=== PATIENT | male | born 1960 | race Caucasian/White ===

== ENCOUNTER → 2019-07-28 | Outpatient (CLI) | payer SELFPAY ==
--- NOTE | 2019-07-28 10:24 | XR ---
EXAM TYPE: LUMBAR SPINE X RAY SERIES COMPARISON: NONE HISTORY: Back pain TECHNIQUE: 4 views are submitted. FINDINGS: Alignment is anatomic. The pedicles are intact. The transverse processes are intact. There is post surgical change. Grade 1 anterolisthesis L3 on L4 and L4-L5 with severe multilevel degenerative disc disease. Vascular calcifications noted. Curvature the spine noted. IMPRESSION: 1. Postsurgical changes with multilevel degenerative disc disease and multilevel anterolisthesis.
== END | disposition home or self-care (01) ==
LOC: RADXRMAIN 09:41
PROVIDERS: ATTEND Family Medicine
DX: M43.16 Spondylolisthesis, lumbar region (principal); M51.36 Other intervertebral disc degeneration, lumbar region; Z98.890 Other specified postprocedural states
CPT/HCPCS: 72100

== ENCOUNTER → 2019-11-18 | Outpatient (CLI) | payer SELFPAY ==
[2019-11-18 10:31] LABS: Basophils # (A) 0.1 k/uL (0-0.2); Basophils % (A) 2 %; Eosinophils # (A) 0.5 k/uL (0-0.7); Eosinophils % (A) 6 %; HCT 46.6 % (39.0-53.0); HGB 15.4 gm/dL (13.0-17.5); Lymphocytes # (A) 1.7 k/uL (1.0-4.8); Lymphocytes % (A) 21 %; MCH 32.9 pg (25.0-35.0); MCHC 33.1 g/dL (31.0-37.0); MCV 99.3 fL (80.0-100.0); Mean Platelet Volume 6.9; Monocytes # (A) 0.7 k/uL (0-1.0); Monocytes % (A) 9 %; Neutrophils # (A) 4.9 k/uL (1.3-7.7); Neutrophils % (A) 60 %; Platelet Count 347 k/uL (150-450); RBC 4.69 m/uL (4.30-5.90); RDW 12.5 % (11.5-15.5); WBC 8.1 k/uL (3.8-10.6)
[2019-11-18 10:44] LABS: Potassium 4.2 mmol/L (3.5-5.1)
[2019-11-18 11:02] LABS: INR 0.9 (<1.2); Prothrombin Time 9.5 sec (9.0-12.0)
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
== END | disposition home or self-care (01) ==
LOC: LABPAT 09:17
PROVIDERS: ATTEND Orthopaedic Surgery
DX: J98.4 Other disorders of lung (principal); I77.89 Other specified disorders of arteries and arterioles; M16.12 Unilateral primary osteoarthritis, left hip; Z79.01 Long term (current) use of anticoagulants
CPT/HCPCS: 36415; 71046; 80051; 85025; 85610; 87070; 93005

== ENCOUNTER 2019-11-29 06:56 | Inpatient (IN) | payer SELFPAY ==
[2019-11-21 15:11] VITALS: BMI 27.3
--- NOTE | 2019-11-28 11:03 | HP ---
HISTORY AND PHYSICAL CHIEF COMPLAINT: Left hip pain. HISTORY OF PRESENT ILLNESS: The patient is a 59-year-old, unemployed male who presents with progressive left hip pain over the past several months. He notes this progressed to where it is extreme and he has a difficult time with any weightbearing. He has been using a cane. He has tried medications with only partial temporary relief. He does have a longstanding history of lumbar spine issues and a previous surgery. PAST MEDICAL HISTORY: Significant for seizures, arthritis, hypertension. PAST SURGICAL HISTORY: Significant for right knee arthroscopy, right total hip arthroplasty and lumbar fusion. CURRENT MEDICATIONS: Aspirin, metoprolol, and [place]. ALLERGIES: He denies drug allergies. FAMILY HISTORY: Significant for cancer. SOCIAL HISTORY: Significant for 1 pack per day tobacco use in addition to heavy alcohol use. REVIEW OF SYSTEMS: Sixteen point review of systems otherwise reviewed and is noncontributory. PHYSICAL EXAMINATION: On examination, the patient is approximately 6 feet 4 inches, 200 pounds of endomorphic habitus. HEENT exam is nonfocal. Neck is supple. Passive motion left hip, flexion 60 degrees, external rotation with the hip flexed 40 degrees. Internal rotation 0 with pain. He has an antalgic gait pattern. He has limited lumbar spine motion. His distal neurovascular appears intact in the left lower extremity. Previous x-rays of left hip obtained in the office show severe osteoarthrosis with bone- on-bone changes. IMPRESSION: 1. Left hip severe osteoarthrosis. 2. History of lumbar fusion with radiculopathy. RECOMMENDATIONS: I talked to the patient at length regarding his condition and treatment options. At this point, he is quite symptomatic and it appears the majority of his symptoms relate to his osteoarthrosis of the left hip. After thorough discussion, he opts to proceed with surgery. We will plan to proceed with left total hip arthroplasty. We will institute DVT prophylaxis postoperatively. Risks and benefits were discussed at length in layman's terms. MMODL / IJN: [id number] /
[~2019-11-29 06:56] MED LIST: ACETAMINOPHEN TAB 500 MG TAB PO ONE; MELOXICAM 7.5 MG TAB PO ONE; TRANEXAMIC ACID 1,000 MG in SODIUM CHLORIDE 0.9% 100 ML IVPB ONE
[2019-11-29] MEDS ORDERED: ONDANSETRON 4 MG/2 ML VIAL IVP ONE (07:08)
[2019-11-29] MEDS ORDERED: MIDAZOLAM 2 MG/2 ML VIAL IV PRN (07:08)
[2019-11-29] MEDS ORDERED: HYDROmorphone 0.5 MG/0.5 ML SYRINGE IVP PRN ×2 (07:08→09:45)
[2019-11-29] MEDS ORDERED: DEXAMETHASONE SOD PHOSPHATE 10 MG/ML 1 ML VIAL IV ONE (07:08)
[2019-11-29] MEDS ORDERED: SCOPOLAMINE 1.5MG/72HR PATCH TRANSDERM ONE (07:08)
[2019-11-29] MEDS ORDERED: LIDOCAINE 1% 20 ML VIAL (10MG/ML) FOR IV START INTRADERMA ONE (07:35)
[2019-11-29] MEDS: LACTATED RINGERS 1,000 ML IV SCH (07:35)
[2019-11-29] MEDS ORDERED: fentaNYL (PF) 50 MCG/ML 2 ML AMP ONE (07:51)
[2019-11-29] MEDS ORDERED: diphenhydrAMINE 50 MG/ML 1 ML VIAL ONE (07:51)
[2019-11-29] MEDS ORDERED: MIDAZOLAM 2 MG/2 ML VIAL ONE (07:51)
[2019-11-29] MEDS ORDERED: SODIUM CHLORIDE 0.9% 100 ML BAG ONE (07:51)
[2019-11-29] MEDS ORDERED: PROPOFOL 10 MG/ML 20 ML VIAL IV ONE (07:51)
[2019-11-29] MEDS ORDERED: ePHEDrine SULFATE/0.9% NACL/PF 50 MG/5 ML SYRINGE IV ONE (07:51)
[2019-11-29] MEDS ORDERED: TRANEXAMIC ACID 1,000 MG/10 ML VIAL ONE (07:51)
[2019-11-29] MEDS ORDERED: WATER FOR INJECTION, STERILE 10 ML VIAL IV ONE (07:51)
[2019-11-29] MEDS ORDERED: LACTATED RINGERS 1,000 ML IV ONE (08:42)
[2019-11-29] MEDS ORDERED: MAGNESIUM HYDROXIDE 2,400 MG/10 ML CUP PO PRN (09:45)
[2019-11-29] MEDS ORDERED: HYDROmorphone 1 MG/ML 1 ML SYRINGE IVP PRN (09:45)
[2019-11-29] MEDS ORDERED: traMADol 50 MG TAB PO PRN (09:45)
[2019-11-29] MEDS ORDERED: NALOXONE 0.4 MG/ML 1 ML VIAL IV PRN (09:45)
[2019-11-29] MEDS ORDERED: HYDROcodone/APAP 7.5-325MG 1 EACH TAB PO PRN (09:45)
[2019-11-29] MEDS ORDERED: ACETAMINOPHEN TAB 325 MG TAB PO PRN (09:45)
--- NOTE | 2019-11-29 10:04 | P.OP ---
Date of Procedure: 11/29/19 Preoperative Diagnosis: Left hip severe osteoarthrosis Postoperative Diagnosis: Same Procedure(s) Performed: Left total hip arthroplastylateral approach Implants: Depuy Corail size 16 high offset press-fit femoral stem with collar, 36 mm +8 cobalt chrome femoral head, 60 mm Lov[place] acetabular shell with neutral polyethylene liner. Anesthesia: spinal Surgeon: Isaiah Sheridan Nuclear Instructor #1: Santy Granados Estimated Blood Loss (ml): 150 Pathology: other (Femoral head) Condition: stable Disposition: PACU Indications for Procedure: The patient's a 59-year-old male who presents with progressive left hip pain secondary to osteoarthrosis despite conservative measures. A discussion of the risks and benefits of operative intervention versus continued conservative measures was made with the patient. He opted to proceed with surgery. Operative risks to include infection, neurovascular injury, development of blood clots, possible fracture, possible leg length discrepancy, possible instability and need for subsequent procedures was discussed. Informed consent was obtained. Operative Findings: As below Description of Procedure: The patient was brought to the operating room, and after induction of spinal anesthesia was placed in a lateral decubitus position. The bony prominences were appropriately padded. The pelvis was stable perpendicular to the floor with a pegboard. The left lower extremity was prepped and draped in normal fashion. A 12 cm incision was then made centered over the greater trochanter extending superiorly to level the ASIS and distally in line with the femoral shaft. The skin and subcutaneous tissues were divided sharply. Electrocautery was used for hemostasis. The fascia chin and gluteus modesto fascia was split in line with the skin incision. The muscle fibers were bluntly dissected proximally. A self-retaining retractor was placed. The anterior and posterior margins of the gluteus medius muscles identified and the anterior two thirds was detached from the greater trochanter with electrocautery. The gluteus minimus tendon was identified and detached in a similar fashion. A wide capsulotomy was performed. The femoral neck fracture was identified in the lower neck cut was made approximately 1 1/2 cm above the level of the lesser trochanter with a sagittal saw at a 45 the shaft. The head was then extracted with a corkscrew. Attention was then paid towards preparing the acetabular. Anterior and posterior retractors were placed. The remaining capsular labral tissues debrided sharply clearly defining the acetabular margins. Began reaming with a 53 mm reamer taking care to initially medialize, then reaming at 45 of abduction and 20 of anteversion. Sequential reaming is performed up to 59 mm. This was down to bleeding bony surface. A trial 60 mm acetabular shell was inserted at 45 of abduction and 20 of anteversion. This was fully seated. There was good rim fit and stability. I did place a 6.5 x 25 mm cancellous screw posteriorly with good purchase. A neutral polyethylene liner was then impacted. Care taken to avoid any soft tissue interposition. Attention was then paid towards preparing the proximal femur. A box chisel was used to open the metaphyseal region. A canal finder was used to find the femoral canal. Sequential broaching was performed up to a size 16. This is placed in 15 of anteversion with the leg perpendicular floor judging off the trans-epicondylar axis. There is good rotational stability. A calcar mill was used to fashion the medial calcar. A trial high offset neck along with a a 36 mm + 8 trial head was placed. The hip was gently reduced. It was taken through range of motion. I felt to be stable in flexion and extension with internal and external rotation. I felt there was adequate voodoo of soft tissue tension. The hip was gently dislocated. The trial components removed. Pulsatile lavage was utilized. The final size 16 high offset collared femoral stem was inserted again with the leg perpendicular to the floor in 15 of anteversion. Again there was good rotational stability. A 36 mm + 8 cobalt chrome femoral head was gently impacted. The hip was gently reduced. Again it was taken through motion and felt to be stable in flexion and extension with internal and external rotation. Pulsatile lavage was again utilized. With the leg in abduction the gluteus minimus and medius tendons reattached to the greater trochanter with #2 Ethibond suture. There was minimal drainage therefore a deep drain was not placed. The fascia chin and gluteus modesto fascia was closed with #2 Ethibond suture. The subcutaneous tissues were reapproximated interrupted 2-0 Vicryl sutures. The skin was reapproximated with 3-0 subcuticular strata fix suture. Skin tape and adhesive was applied. A sterile dressing was applied. The patient was awoken from sedation and transferred to recovery room in good condition. Blood loss was estimated 150 mL. There was minimal drainage therefore a deep drain was not placed. The second dose of IV TXA was given. No complications were incurred. Sponge and needle counts were correct in the case. Vladimir CANTU assisted during the major composes case to include exposure, implantation, and closure.
--- NOTE | 2019-11-29 10:29 | XR ---
Left hip HISTORY: Status post left hip arthroplasty Single frontal view of the left hip Patient is status post left hip arthroplasty. There is lucency in the soft tissues. There is anatomic alignment. Technique somewhat limited. IMPRESSION: Orthopedic follow-up.
[2019-11-29] MEDS: ONDANSETRON 4 MG/2 ML VIAL IVP PRN (11:42)
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
[2019-11-29] MEDS: HYDROcodone/APAP 7.5-325MG 1 EACH TAB PO PRN ×2 (15:52→23:10)
[2019-11-29] MEDS ORDERED: SENNOSIDES-DOCUSATE SODIUM 1 EACH TAB PO SCH (21:00)
[2019-11-30 01:40] VITALS: TEMP 98.1
[2019-11-30] MEDS: HYDROcodone/APAP 7.5-325MG 1 EACH TAB PO PRN ×2 (04:41→13:05)
[2019-11-30] MEDS: LACTATED RINGERS 1,000 ML IV SCH (04:44)
[2019-11-30] MEDS: ONDANSETRON 4 MG/2 ML VIAL IVP PRN (05:08)
[2019-11-30 07:36] LABS: Basophils # (A) 0.1 k/uL (0-0.2); Basophils % (A) 1 %; Eosinophils % (A) 0 %; HGB 13.3 gm/dL (13.0-17.5); Lymphocytes # (A) 1.7 k/uL (1.0-4.8); Lymphocytes % (A) 12 %; MCH 31.5 pg (25.0-35.0); MCHC 32.5 g/dL (31.0-37.0); MCV 96.9 fL (80.0-100.0); Mean Platelet Volume 6.9; Monocytes # (A) 1.4 k/uL (0-1.0); Monocytes % (A) 10 %; Neutrophils # (A) 11.3 k/uL (1.3-7.7); Neutrophils % (A) 77 %; Platelet Count 337 k/uL (150-450); RBC 4.23 m/uL (4.30-5.90); RDW 12.3 % (11.5-15.5); WBC 14.7 k/uL (3.8-10.6)
[2019-11-30 08:11] VITALS: BP 177/84; PULSE 109; RESP 18
[2019-11-30] MEDS ORDERED: FAMOTIDINE 20 MG TAB PO SCH (09:00)
[2019-11-30] MEDS ORDERED: RIVAROXABAN 10 MG TAB PO SCH (09:00)
--- NOTE | 2019-11-30 10:31 | P.PN ---
Subjective Progress Note Date: 11/30/19 Principal diagnosis: status post left total hip arthroplasty Patient evaluated bedside, he is resting comfortably. He has ambulated well. He denies any chest pain or shortness of breath. Objective - Vital Signs Vital signs: Vital Signs Temp 98.1 F 11/30/19 07:00 Pulse 109 H 11/30/19 07:00 Resp 18 11/30/19 07:00 BP 177/84 11/30/19 07:00 Pulse Ox 95 11/30/19 07:00 Intake & Output 11/29/19 11/30/19 11/30/19 18:59 06:59 18:59 Intake Total 2196 820 Output Total 200 1800 1800 Balance 1995 Weight 105.9 kg Intake: IV 1600 Intake, IV Titration 700 Amount Lactated Ringers 1,000 ml 600 @ 50 mls/hr IV .Q20H HEMAL Rx#:[id number] ceFAZolin 2 gm In Sodium 100 Chloride 0.9% 50 ml @ 100 mls/hr IVPB Q8HR EHMAL Rx# :[id number] Oral 596 120 Output: Urine 50 1800 1800 Estimated Blood Loss 150 Other: Voiding Method Bedside Commode Bedside Commode # Voids 2 2 - Exam Left lower extremity: Incision is clean, dry, and intact. The exofin fusion tape is in good condition. There is minimal soft tissue swelling and ecchymosis surrounding the medial and lateral aspects of the incision. Calf is soft, no tenderness with palpation. Plantar flexion, dorsiflexion, EHL, FHL are intact. Sensory exam to light touch throughout the extremity is intact, dorsal pedis pulses 2+. - Labs CBC & Chem 7: 11/30/19 06:54 Labs: Abnormal Lab Results - Last 24 Hours (Table) 11/30/19 Range/Units 06:54 WBC 14.7 H (3.8-10.6) k/uL RBC 4.23 L (4.30-5.90) m/uL Neutrophils # 11.3 H (1.3-7.7) k/uL Monocytes # 1.4 H (0-1.0) k/uL Assessment and Plan Plan: Assessment: Postoperative day #1 status post left total hip arthroplasty Plan: Pain control, plan for discharge on oral medication GI and DVT prophylaxis, Eliquis 2.5mg bid for 1 month Wound care instructions discussed Home therapy and nursing after discharge Posterior hip precautions Medical recommendations Discharge home today Time with Patient: Less than 30
--- NOTE | 2019-11-30 10:32 | P.DS ---
Providers Date of admission: 11/29/19 06:56 Expected date of discharge: 11/30/19 Attending physician: Isaiah Sheridan Consults: 11/29/19 09:49 Consult Physician Routine Consulting Provider: Valeria Olivera Reason/Comments: Medical Management Do you want consulting provider notified?: Yes Primary care physician: Valeria Olivera Hospital Course: Date of admission: 11/29/2019 Date of discharge: 11/30/2019 Admission diagnosis: Status post left total hip arthroplasty Discharge diagnosis: Same Attending physician: Dr. Sheridan Surgical procedures: Left total hip arthroplasty Brief history: Patient is a 59-year-old male with a history of progressive primary left hip osteoarthritis. At this point patient has failed conservative treatment measures and has opted to proceed with a elective left total hip arthroplasty. Hospital course: Details of patient's surgery can be found in operative report. Patient tolerated the procedure well and was subsequently transported to orthopedic floor. Patient's orthopeidc and medical care was provided daily. Patient had daily laboratory tests performed for evaluation of overall blood counts. Patient had daily physical therapy to include strengthening range of motion as well as education with walker ambulation. Patient had daily CPM usage as part of their physical therapy program. Patient was treated with Xarelto for their postoperative DVT prophylaxis during their inpatient stay. Patient was noted to have a relatively uneventful postoperative course. Patient reported satisfactory pain control with oral pain medications by postoperative day 0. Patient showed satisfactory progress with physical therapy. Patient moved steadily through the program and had no difficulty meeting the goals by postoperative day 1. Given patient's otherwise satisfactory course and having met physical therapy goals, plan is to discharge patient home on postoperative day 1. Discharge condition/disposition: Patient will be discharged home in stable condition. Discharge medications: Instructions are given on resumption of patient's normal daily medications per primary care recommendation, in addition patient will be prescribed [place] 7.5 mg/325 mg, Eliquis 2.5mg. Discharge instructions: 1. Wound care and infection precautions, keep incision dry and covered while showering, no lotions, creams, moisturizers. No soaking, tubs, pools, hottubs. Do not scrub over the incision. 2. Weight-bear as tolerated with walker / cane until follow-up. 3. Ice and elevate when necessary. Do not exceed 20 minutes per hour with ice pack. 4. Utilize compression sleeve until seen at first follow up appointment. 5. Visiting nursing care. 6. Home physical therapy. 7. Pain meds and anticoagulants per prescription. 8. Pain medication has potential to cause constipation. Increase oral fluid and fiber intake. Contact primary care provider if you have not had a bowel movement within 48 hours after discharge 9. No anti-inflammatory medication until discussed at first post operative visit, this including Motrin, Aleve, Mobic, Diclofenac. 10. Follow up in office at 2 weeks postop with Vladimir Granados PA-C 11. Follow up with your primary care doctor 7-10 days after discharge. 12. Contact [facility] with any questions, . Procedures: Left total hip arthroplasty Patient Condition at Discharge: Good Plan - Discharge Summary Discharge Rx Participant: No New Discharge Prescriptions: New Apixaban [Eliquis] 2.5 mg PO BID #60 tab HYDROcodone/APAP 7.5-325MG [[place] 7.5] 1 - 2 each PO Q6HR PRN #40 tab PRN Reason: Pain No Action Multivitamins, Thera [Multivitamin] 1 tab PO DAILY Baclofen [Lioresal] 10 mg PO TID PRN PRN Reason: Muscle Spasm Aspirin 81 mg PO DAILY Metoprolol Tartrate [Lopressor] 50 mg PO BID HYDROcodone/APAP 7.5-325MG [[place] 7.5-325] 1 tab PO Q6HR PRN PRN Reason: Pain Discharge Medication List Multivitamins, Thera [Multivitamin] 1 tab PO DAILY 07/09/16 [History] Aspirin 81 mg PO DAILY 11/21/19 [History] Baclofen [Lioresal] 10 mg PO TID PRN 11/21/19 [History] HYDROcodone/APAP 7.5-325MG [[place] 7.5-325] 1 tab PO Q6HR PRN 11/21/19 [History] Metoprolol Tartrate [Lopressor] 50 mg PO BID 11/21/19 [History] Apixaban [Eliquis] 2.5 mg PO BID #60 tab 11/30/19 [Rx] HYDROcodone/APAP 7.5-325MG [[place] 7.5] 1 - 2 each PO Q6HR PRN #40 tab 11/30/19 [Rx] Follow up Appointment(s)/Referral(s): [facility], [NON-STAFF] - Santy Granados, TASHIA [PHYSICIAN DRUG REGULATORY AFFAIRS SPECIALIST] - 12/14/19 3:30 pm Activity/Diet/Wound Care/Special Instructions: Orthopedic Discharge Instructions: 1. Wound care and infection precautions, keep incision dry and covered while showering, no lotions, creams, moisturizers. No soaking, pools, hot tubs. Do not scrub over incision. 2. Weight-bear as tolerated with walker / cane until follow-up. 3. Ice and elevate when necessary. Do not exceed 20 minutes per hour with ice pack. 4. Utilize compression sleeve until seen at first follow up appointment. 5. Pain meds and anticoagulants per prescription. 6. Pain medication has potential to cause constipation. Increase oral fluid and fiber intake. Contact primary care provider if you have not had a bowel movement within 48 hours after discharge. 7. No anti-inflammatory medication until discussed at first post operative visit, this including Motrin, Aleve, Mobic, Diclofenac. 8. Follow up in office at 2 weeks postop with Vladimir Granados PA-C 9. Follow up with your primary care doctor 7-10 days after discharge. 10. Contact [facility] with any questions, [phone]. 11. [facility] will deliver a walker to the bedside before discharge. Discharge Disposition: HOME WITH HOME HEALTH SERVICES
--- NOTE | 2019-11-30 14:50 | P.PN ---
Subjective Progress Note Date: 11/30/19 Principal diagnosis: 59-year-old pleasant gentleman was admitted for left hip arthroplasty lateral approach sepsis and underwent surgery patient is clinically doing well moving his bowels denied any fever chills nausea vomiting abdominal pain patient denied any chest pain patient is also although sinus bradycardic patient is on beta jd which was recently increased because his blood pressure is not well- controlled with because of pain. We'll hold off on beta jd because of sinus bradycardia will monitor him if needed will let us anyone low-dose of beta jd. Patient blood pressure is not high at this time either as his pain is well controlled at this time. 11/30/2019 Patient is sitting up in the chair currently working with physical therapy and transferring from the bed to the chair. No acute overnight issues. Patient takes metoprolol 50 mg twice daily and we will resume upon discharge his current heart rate has been in the low 100s. Blood pressure slightly elevated today. Currently patient denies any chest pain, shortness of breath, or palpitations. Patient is afebrile. Patient denies any nausea or vomiting and has been tolerating diet. Patient would like to go home today and is being discharged and will continue with home care for physical therapy. Objective - Vital Signs Vital signs: Vital Signs Temp 98.1 F 11/30/19 07:00 Pulse 109 H 11/30/19 07:00 Resp 18 11/30/19 07:00 BP 177/84 11/30/19 07:00 Pulse Ox 95 11/30/19 07:00 Intake & Output 11/29/19 11/30/19 11/30/19 18:59 06:59 18:59 Intake Total 2196 820 592 Output Total 200 1800 1800 Balance 1995 Weight 105.9 kg Intake: IV 1600 Intake, IV Titration 700 Amount Lactated Ringers 1,000 ml 600 @ 50 mls/hr IV .Q20H HEMAL Rx#:[id number] ceFAZolin 2 gm In Sodium 100 Chloride 0.9% 50 ml @ 100 mls/hr IVPB Q8HR HEMAL Rx# :[id number] Oral 596 120 592 Output: Urine 50 1800 1800 Estimated Blood Loss 150 Other: Voiding Method Bedside Commode Bedside Commode # Voids 2 2 - Exam GENERAL: The patient is alert and oriented x3, not in any acute distress. Well developed, well nourished. HEENT: Pupils are round and equally reacting to light. EOMI. No scleral icterus. No conjunctival pallor. Normocephalic, atraumatic. No pharyngeal erythema. No thyromegaly. CARDIOVASCULAR: S1 and S2 present. No murmurs, rubs, or gallops. PULMONARY: Chest is clear to auscultation, no wheezing or crackles. ABDOMEN: Soft, non-tender, non-distended, normoactive bowel sounds. No palpable organomegaly. MUSCULOSKELETAL: No joint swelling or deformity. EXTREMITIES: No cyanosis, clubbing, or pedal edema. NEUROLOGICAL: Gross neurological examination did not reveal any focal deficits. SKIN: No rashes. - Labs CBC & Chem 7: 11/30/19 06:54 Labs: Abnormal Lab Results - Last 24 Hours (Table) 11/30/19 Range/Units 06:54 WBC 14.7 H (3.8-10.6) k/uL RBC 4.23 L (4.30-5.90) m/uL Neutrophils # 11.3 H (1.3-7.7) k/uL Monocytes # 1.4 H (0-1.0) k/uL Assessment and Plan Assessment: -sinus bradycardia: Secondary to beta jd which was held status post surgery and will be resumed upon discharge -hypertension blood pressure is elevated at this time. beta blockers mentioned above are being resumed -hip arthroplasty: Pain management as per primary service patient is on anticoagulation with new anticoagulants as a DVT prophylaxis -seizure disorder patient is presently not on any antiseizure medications -Osteoarthritis plan: Recommend to continue current medications, management, and symptomatic treatment . Continue working with PT/OT. Plan is for patient be discharged today per primary service and will be going home with home care with continued PT/OT. Will resume beta jd upon discharge. Will continue to follow along closely during hospital course. Further recommendations to follow. Probable discharge this afternoon.
== END 2019-11-30 16:20 | disposition home health service (06) | DRG 470 ==
LOC: 2ORMAIN 06:56 → 4SSUR 09:41
PROVIDERS: ADMIT Orthopaedic Surgery; ATTEND Orthopaedic Surgery
PROC: 0SRB02A Replacement of Left Hip Joint with Metal on Polyethylene Synthetic Substitute, Uncemented, Open Approach (ICD-10-PCS; principal; 2019-11-29 08:00)
DX: M16.12 Unilateral primary osteoarthritis, left hip (principal); G40.909 Epilepsy, unspecified, not intractable, without status epilepticus; I10 Essential (primary) hypertension; T44.7X5A Adverse effect of beta-adrenoreceptor antagonists, initial encounter; R00.1 Bradycardia, unspecified; Z79.82 Long term (current) use of aspirin; Z79.899 Other long term (current) drug therapy; Z87.891 Personal history of nicotine dependence; Z96.641 Presence of right artificial hip joint; Z98.1 Arthrodesis status; Z96.652 Presence of left artificial knee joint; Z80.9 Family history of malignant neoplasm, unspecified
CPT/HCPCS: 73501; 85025; 86850; 86900; 86901; 88300

== ENCOUNTER 2020-01-15 10:12 | Emergency (ER) | payer OTHER ==
[2020-01-15 10:17] VITALS: TEMP 98
[2020-01-15] MEDS ORDERED: KETOROLAC 30 MG/ML 1 ML VIAL IM STA (10:31)
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
--- NOTE | 2020-01-15 10:45 | XR ---
EXAMINATION TYPE: XR shoulder complete RT , 3 VIEWS DATE OF EXAM ORDERED: 01/15/2020 HISTORY: shoulder pain. COMPARISON: None. FINDINGS: The coracoclavicular distance is enlarged. There appears to be a chronic right-sided AC se paration. No acute fracture or dislocation is seen. IMPRESSION: 1. NO ACUTE OSSEOUS LESION. 2. THERE IS WHAT I SUSPECT IS A CHRONIC RIGHT, GRADE 3, AC JOINT SEPARATION.
[2020-01-15 11:22] VITALS: BP 125/74; PULSE 89; RESP 16
== END 2020-01-15 11:20 | disposition home or self-care (01) ==
LOC: EC 10:12
DX: M24.411 Recurrent dislocation, right shoulder (principal); M19.90 Unspecified osteoarthritis, unspecified site; Z87.891 Personal history of nicotine dependence; Z79.82 Long term (current) use of aspirin; Z96.641 Presence of right artificial hip joint; Z96.652 Presence of left artificial knee joint
CPT/HCPCS: 73030; 99283; 96372; J1885

== ENCOUNTER → 2020-08-24 | Outpatient (CLI) | payer MEDICAID ==
[2020-08-24 09:56] LABS: Basophils # (A) 0.1 k/uL (0-0.2); Basophils % (A) 1 %; Eosinophils # (A) 0.3 k/uL (0-0.7); Eosinophils % (A) 4 %; HCT 43.1 % (39.0-53.0); HGB 14.7 gm/dL (13.0-17.5); Lymphocytes % (A) 12 %; MCH 34.9 pg (25.0-35.0); MCV 102.8 fL (80.0-100.0); Macrocytosis Slight; Mean Platelet Volume 6.5; Monocytes # (A) 0.9 k/uL (0-1.0); Monocytes % (A) 11 %; Neutrophils # (A) 5.6 k/uL (1.3-7.7); Neutrophils % (A) 69 %; Platelet Count 299 k/uL (150-450); RBC 4.19 m/uL (4.30-5.90); RDW 12.2 % (11.5-15.5); WBC 8.1 k/uL (3.8-10.6)
[2020-08-24 10:07] LABS: Potassium 3.8 mmol/L (3.5-5.1)
[2020-08-24 10:09] LABS: INR 0.9 (<1.2); Prothrombin Time 9.4 sec (9.0-12.0)
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
== END | disposition home or self-care (01) ==
LOC: LABPAT 09:18
PROVIDERS: ATTEND Orthopaedic Surgery
DX: Z01.818 Encounter for other preprocedural examination (principal); M17.11 Unilateral primary osteoarthritis, right knee; Z01.812 Encounter for preprocedural laboratory examination
CPT/HCPCS: 71046; 80051; 85025; 85610; 87070

== ENCOUNTER 2020-09-04 10:32 | Day surgery (SDC) | payer MEDICAID ==
[2020-08-31 13:27] VITALS: BMI 27.3
--- NOTE | 2020-09-03 10:47 | HP ---
HISTORY AND PHYSICAL CHIEF COMPLAINT: Right knee pain. HISTORY OF PRESENT ILLNESS: The patient is a 59-year-old male who presents with progressive right knee pain, worsening over the past couple of years. He is having pain with normal weightbearing activities. It limits his function. He has been limping. He has tried injections along with medications with only partial temporary relief. PAST MEDICAL HISTORY: Significant for arthritis, hypertension, and previous history of seizures. CURRENT MEDICATIONS: Aspirin, metoprolol, and [place]. He denies drug allergies family. PAST SURGICAL HISTORY: Significant for right knee arthroscopy, right total knee arthroplasty and lumbar fusion. FAMILY HISTORY: Significant for cancer. SOCIAL HISTORY: Significant for 1 pack per day tobacco use and social alcohol use. 16 POINT REVIEW OF SYSTEMS: Otherwise reviewed and is noncontributory. PHYSICAL EXAMINATION: On examination, the patient is approximately 6 foot 4, 200 pounds of mesomorphic habitus. HEENT: Exam is nonfocal. NECK: Supple. He has painless passive motion of right hip. Straight leg raise is negative, active motion right knee -14 to 105 degrees of flexion. He has a large effusion. He is tender about the medial joint line. Collaterals are stable, Marcellus is negative, Warren's elicits medial pain. He has genu varum alignment. He does have an antalgic gait pattern. Weightbearing, notch, lateral Merchant views of right knee obtained in the office show severe medial and patellofemoral compartment, osteoarthrosis with bgdl-[id number] changes. Subchondral sclerosis is noted. IMPRESSION: Right knee severe medial and patellofemoral compartment osteoarthrosis. RECOMMENDATIONS: I talked to the patient at length regarding his condition along with treatment options. At this point, he is quite limited because of pain, despite extensive conservative measures. After thorough discussion, he opts to proceed with surgery. We will plan to proceed with right total knee arthroplasty. We will institute DVT prophylaxis postoperatively. Risks and benefits were discussed at length in layman's terms. MMODL / IJN: [id number] /
[~2020-09-04 10:32] MED LIST changes: -ACETAMINOPHEN TAB 500 MG TAB PO ONE; +HYDROmorphone 0.5 MG/0.5 ML SYRINGE IVP PRN; +LIDOCAINE 1% (10MG/ML) FOR IV START INTRADERMA PRN; -MELOXICAM 7.5 MG TAB PO ONE; +MIDAZOLAM 2 MG/2 ML VIAL IV PRN; +ROPIVACAINE 246.25 MG, EPINEPHrine 0.5 MG, KETOROLAC 30 MG, cloNIDine HCL/PF 80 MCG, WA... MISCELLANE ONE
[2020-09-04] MEDS: LACTATED RINGERS 1,000 ML IV SCH ×2 (11:28→12:04)
[2020-09-04] MEDS: ACETAMINOPHEN TAB 500 MG TAB PO ONE ×2 (11:28→17:13)
[2020-09-04] MEDS: ONDANSETRON 4 MG/2 ML VIAL IVP ONE ×2 (11:28→17:13)
[2020-09-04] MEDS: MELOXICAM 7.5 MG TAB PO ONE ×2 (11:28→17:13)
[2020-09-04] MEDS: DEXAMETHASONE SOD PHOSPHATE 4 MG/ML 1 ML VIAL IV ONE ×2 (11:28→17:13)
[2020-09-04] MEDS ORDERED: fentaNYL (PF) 50 MCG/ML 2 ML AMP IVP ONE (11:45)
[2020-09-04] MEDS ORDERED: MIDAZOLAM 2 MG/2 ML VIAL IVP ONE (11:45)
[2020-09-04] MEDS ORDERED: MIDAZOLAM 2 MG/2 ML VIAL ONE (12:00)
[2020-09-04] MEDS ORDERED: fentaNYL (PF) 50 MCG/ML 2 ML AMP ONE (12:00)
[2020-09-04] MEDS ORDERED: GLYCOPYRROLATE 0.2 MG/ML 2 ML VIAL ONE (12:00)
[2020-09-04] MEDS ORDERED: PROPOFOL 10 MG/ML 20 ML VIAL IV ONE (12:00)
[2020-09-04] MEDS ORDERED: ROPIVACAINE 0.2%-NS ON-Q PUMP 1,090 MG, EMPTY PAIN BALL 1 EACH MISCELLANE PRN (12:23)
--- NOTE | 2020-09-04 12:23 | P.ANPRN ---
Procedure Note - Anesthesia - Nerve Block Performed Right Adductor Canal Infusion Time Out Performed: Yes ([id number]) Date of Procedure: 09/04/20 Procedure Start Time: 11:43 Procedure Stop Time: 11:53 Location of Patient: PreOp Indication: Acute Post-Operative Pain, Analgesia, Requested by Surgeon Specifically requested for management of pain by : Isaiah Sheridan Sedation Type: Sedate with meaningful contact maintained Preparation: Sterile Prep, Sterile Dressing Position: Supine Catheter: Indwelling Needle Types: Pajunk Needle Gauge: 18 Ultrasound used to visualize needle placement: Yes Ultrasound used to observe medication spread: Yes Injectate: 0.5% Ropivacaine (see comment for volume) (20 mL) Blood Aspirated: No Pain Paresthesia on Injection Noted: No Resistance on Injection: Normal Image Stored and Saved: Yes Events: Uneventful and Well Tolerated
[2020-09-04] MEDS ORDERED: ceFAZolin 3,000 MG in SODIUM CHLORIDE 0.9% IRRIGATIO 3,000 ML IRRIGATION ONE (12:38)
[2020-09-04] MEDS ORDERED: LACTATED RINGERS 1,000 ML IV ONE (13:28)
[2020-09-04] MEDS ORDERED: MAGNESIUM HYDROXIDE 2,400 MG/10 ML CUP PO PRN (14:03)
[2020-09-04] MEDS ORDERED: HYDROcodone/APAP 7.5-325MG 1 EACH TAB PO PRN (14:03)
[2020-09-04] MEDS ORDERED: HYDROmorphone 1 MG/ML 1 ML SYRINGE IVP PRN (14:03)
[2020-09-04] MEDS ORDERED: NALOXONE 0.4 MG/ML 1 ML VIAL IV PRN (14:03)
[2020-09-04] MEDS ORDERED: traMADol 50 MG TAB PO PRN (14:03)
[2020-09-04] MEDS ORDERED: ONDANSETRON 4 MG/2 ML VIAL IVP PRN (14:03)
[2020-09-04] MEDS ORDERED: ACETAMINOPHEN TAB 325 MG TAB PO PRN (14:03)
--- NOTE | 2020-09-04 14:16 | P.OP ---
Date of Procedure: 09/04/20 Preoperative Diagnosis: Right knee severe tricompartmental osteoarthrosis Postoperative Diagnosis: Same Procedure(s) Performed: Right total knee arthroplastycementedcruciate retaining Implants: Depuy Attune size 8 cemented femoral component, size 8 cemented tibial component, 9 mm articular surface, 41 mm patellar component. This is a cruciate retaining implant. Anesthesia: regional, local, spinal Surgeon: Isaiah Sheridan Residential Subcontractor #1: Santy Granados Estimated Blood Loss (ml): 50 Pathology: other (Bone fragments) Condition: stable Disposition: PACU Indications for Procedure: The patient's a 59-year-old male who presents progressive right knee pain secondary to osteoporosis despite extensive conservative treatment. A discussion of the risks and benefits of operative intervention versus measures was made with patient. He opted to proceed with surgery. Operative risks to include infection, neurovascular injury, development of blood clots, possible fracture, possible component loosening, possible component failure need for subsequent procedures was discussed. Informed consent was obtained. Operative Findings: As below Description of Procedure: The patient was brought to the operating room, and after induction of spinal anesthesia the right lower extremity was prepped and draped in a normal fashion. The tourniquet was inflated to 270 mmHg. A longitudinal incision extending 3 finger breaths above the superior pole of the patella extending to the medial aspect the tibial tubercle was then made. The skin and subcutaneous tissues were divided sharply. Electrocautery was used for hemostasis. A medial parapatellar arthrotomy was then performed. The medial soft tissues to include the superficial and deep portions of the medial collateral ligament as well as the medial hamstring tendons were elevated subperiosteally. The proximal medial tibia osteophytes were carefully removed. The patella was everted. The knee was flexed. A portion of the retropatellar fat pad was excised sharply. The anterior cruciate ligament was sacrificed. A starting hole was made in the distal femur 1 cm anterior to the posterior cruciate origin. An intramedullary femoral guide was gently inserted planning on 5 valgus distal cut with 9 mm distal resection. The cutting block was pinned in place. The distal cut was then made. The posterior referencing sizing guide was utilized. 3 of external rotation was built into the system and verified off the trans- epicondylar axis and the posterior condyles. I felt size 8 was most appropriate. The cutting block was pinned in place. The anterior, posterior, and chamfer cuts were then made. The bone fragments were removed. A sulcus cut was then made with the appropriate guide. The trial size 8 femoral component was then placed and was fully seated. There was good anterior to posterior and medial to lateral fit. The distal peg holes were then drilled. The trial component was then removed. Attention was then paid towards preparing the proximal tibia. An extra medullary guide was utilized in line with the tibial shaft and second metatarsal distally. A 7 posterior slope was planned. I planned on 2 mm resection from the medial compartment. The cutting block was pinned in place. The proximal tibial cut was then made. The bone was removed in one fragment. The remnants of the medial and lateral menisci were excised the capsule junction with electrocautery. The tibia sized most appropriately at size 8. The posterior osteophytes off the distal femur were carefully removed with a curved osteotome. The trial tibial and femoral components were placed along with a 9 millimeters articular surface. I was able to obtain full flexion and extension with good stability with varus and valgus stress. After several flexion and extension cycles, the tibial rotation was marked with electrocautery in line with the medial one third of the tibial tubercle. Attention was then paid towards preparing the patella. A patella reamer was utilized taking this down to 14 mm of bone stock. A good flush cut was made. The patella sized most appropriately at 41 millimeters. The peg holes were then drilled. The trial component was placed. The knee was taken through a range of motion. I had good patellofemoral tracking with no hands technique. The trial components were then removed. The tibia was prepared in the appropriate rotation with appropriate drill and keel punch. The flexion and extension gaps were checked and felt to be symmetric. The posterior soft tissues were injected with ropivacaine. The bony surfaces were prepared with pulsatile lavage and dried. The deep tibial component was then cemented in place and was fully seated. Excess cement was removed. The femoral component was cemented in place and was fully seated. Again excess cement was removed. The trial 9 millimeters surface was then inserted in the knee was put in full extension. The patella component was cemented in place. After the cement had sufficiently hardened, the knee was again taken through a range of motion. Again there was good stability in flexion and extension with varus and valgus stress. The trial articular surface was then removed. The final articular surface was placed and was impacted. Care was taken to avoid any soft tissue interposition. Pulsatile lavage was again utilized. The tourniquet was deflated with approximately 60 minutes total tourniquet time. There was minimal drainage therefore a deep drain was not placed. The medial parapatellar arthrotomy was then closed with #2 Ethibond suture. The subcutaneous tissues were reapproximated interrupted 2-0 Vicryl sutures. The skin was reapproximated with 3-0 subarticular strata fix suture. Skin tape and adhesive was applied. A sterile dressing was applied. The patient was then awoken from sedation and transferred to recovery room in good condition. Blood loss was estimated at[] milliliters. No complications were incurred. Sponge and needle counts were correct at the end the case. Vladimir CANTU assisted during the major components this case to include exposure, bone resection, and implantation.
--- NOTE | 2020-09-04 14:39 | XR ---
EXAMINATION TYPE: XR knee limited RT DATE OF EXAM: 09/04/2020 COMPARISON: NONE TECHNIQUE: Two views submitted HISTORY: Post op FINDINGS: There is a prosthetic knee in near anatomic alignment. There is soft tissue edema and emphysema. Va scular calcifications noted. IMPRESSION: 1. Postoperative change. Appears in near-anatomic alignment
[2020-09-04] MEDS: METOPROLOL TARTRATE 25 MG TAB PO SCH (20:11)
[2020-09-04] MEDS ORDERED: SENNOSIDES-DOCUSATE SODIUM 1 EACH TAB PO SCH (21:00)
[2020-09-04] MEDS: HYDROcodone/APAP 7.5-325MG 1 EACH TAB PO PRN (23:21)
--- NOTE | 2020-09-05 00:13 | CONS ---
CONSULTATION DATE OF SERVICE: 09/04/2020 REASON FOR CONSULTATION: Advice regarding GERD, hypertension, DJD, seizure disorder, requested by Dr. Sheridan. HISTORY OF PRESENT ILLNESS: This 59-year-old gentleman with a past medical history of GERD, hypertension, DJD, seizure disorder, being followed by Dr. Olivera in the outpatient setting admitted after right total knee arthroplasty. The patient tolerated the procedure well. There is no history of fever, rigors. No history of headache, loss of consciousness, seizures at this time. PAST MEDICAL HISTORY: GERD, hypertension DJD, seizure disorder. MEDICATIONS: Medications prior to admission include hydrochlorothiazide, metoprolol, aspirin, multivitamins, Pepcid. ALLERGIES: None. FAMILY HISTORY: History of lung cancer in the family. SOCIAL HISTORY: Occasional alcohol intake. Previous history of smoker. REVIEW OF SYSTEMS: ENT: No diminished hearing or diminished. CARDIOVASCULAR SYSTEM: No angina or palpitations. RESPIRATORY SYSTEM: As mentioned earlier. GI: As mentioned earlier. : No dysuria. NERVOUS SYSTEM: No numbness or weakness. ALLERGY/IMMUNOLOGY: No asthma or hayfever. MUSCULOSKELETAL: As mentioned earlier. HEMATOLOGY/ONCOLOGY: No history of anemia. ENDOCRINE: No history of diabetes or hypothyroidism. CONSTITUTIONAL: As mentioned earlier. DERMATOLOGY: Negative. RHEUMATOLOGY: Negative. PSYCHIATRY: As mentioned earlier. PHYSICAL EXAMINATION: The patient is alert and oriented x3. Pulse is 44, blood pressure 146/78, respiration 18, temperature 97.4, pulse ox 97% on room air. HEENT: Conjunctivae normal. NECK: No jugular venous distention. CARDIOVASCULAR: S1, S2 muffled. RESPIRATORY: Breath sounds diminished at the bases. No rhonchi, no crackles. ABDOMEN: Soft. Nontender. LEGS: Status post right knee arthroplasty. NERVOUS SYSTEM: Higher functions as mentioned. Moves all 4 limbs. No focal motor or sensory deficits. LYMPHATICS: No lymphadenopathy of the neck, axillae or groin. SKIN: No ulcer, rash or bleeding. JOINTS: No active deforming arthropathy. LABS: Labs are at this time shows the preop labs hematology MCV 102, otherwise sodium is 133. ASSESSMENT: 1. Status post right total knee arthroplasty. 2. Hyponatremia in the preoperative labs. 3. Bradycardia, possibly sinus. 4. Gastroesophageal reflux disease. 5. Hypertension. 6. History of degenerative joint disease. 7. History of seizure disorder. 8. History of back surgery. 9. History of cardiac catheterization. 10.Remote history of nicotine dependence. 11.FULL CODE. RECOMMENDATIONS AND DISCUSSION: This 59-year-old gentleman presented after surgery had multiple medical issues as mentioned earlier. I would recommend resume the home medications. Hold metoprolol if the heart rate is less than 50. Otherwise, I would also recommend repeat labs. DVT prophylaxis. We will follow the patient closely with you. Thank you Dr. Sheridan for letting us participate in the care of this patient. The patient may be asked to follow with Dr. Olivera closely after discharge. MMODL / IJN: [id number] /
[2020-09-05] MEDS: LACTATED RINGERS 1,000 ML IV SCH (05:33)
[2020-09-05] MEDS: HYDROcodone/APAP 7.5-325MG 1 EACH TAB PO PRN ×2 (05:49→12:03)
--- NOTE | 2020-09-05 06:17 | P.PN ---
Progress Note - Text Progress Note Date: 09/05/20 Patient was seen at bedside at 5:30 AM. Patient is postop day 1 from right to hua knee replacement with adductor canal catheter placed for pain . Ropivacaine 0.2% infusion running at 8 ml per hour. VAS score is 1/10. Patient denies side effects. Lower extremity sensation and motor function is intact. Patient has ambulated. Dressing clean dry and intact over catheter site
[2020-09-05 07:32] VITALS: RESP 18
[2020-09-05 07:36] LABS: Basophils % (A) 0 %; Eosinophils % (A) 0 %; Lymphocytes # (A) 1.2 k/uL (1.0-4.8); Lymphocytes % (A) 10 %; MCH 34.5 pg (25.0-35.0); MCV 101.2 fL (80.0-100.0); Mean Platelet Volume 6.6; Monocytes # (A) 1.1 k/uL (0-1.0); Monocytes % (A) 9 %; Neutrophils # (A) 9.2 k/uL (1.3-7.7); Platelet Count 286 k/uL (150-450); RBC 3.26 m/uL (4.30-5.90); RDW 12.9 % (11.5-15.5); WBC 11.7 k/uL (3.8-10.6)
[2020-09-05 07:48] LABS: HGB 11.2 gm/dL (13.0-17.5)
[2020-09-05] MEDS: METOPROLOL TARTRATE 25 MG TAB PO SCH (08:00)
[2020-09-05] MEDS ORDERED: ASPIRIN 81 MG PO SCH (09:00)
[2020-09-05] MEDS ORDERED: RIVAROXABAN 10 MG TAB PO SCH (09:00)
[2020-09-05] MEDS ORDERED: MULTIVITAMINS, THERA 1 EACH TAB PO SCH (09:00)
[2020-09-05] MEDS ORDERED: FAMOTIDINE 20 MG TAB PO SCH (09:00)
[2020-09-05] MEDS ORDERED: hydroCHLOROthiazide 25 MG TAB PO SCH (09:00)
[2020-09-05 09:30] LABS: African American GFR (CKD) 120.6 (60.0-200.0); Anion Gap 7.9 mmol/L (4.00-12.00); Calcium 8.9 mg/dL (8.7-10.3); Carbon Dioxide 30.1 mmol/L (21.6-31.8); Potassium 3.5 mmol/L (3.5-5.5)
--- NOTE | 2020-09-05 10:29 | P.PN ---
Subjective Progress Note Date: 09/05/20 Principal diagnosis: status post right total knee arthroplasty Patient is examined today at bedside, he is resting comfortably. He is done very well with physical therapy. His pain is currently controlled with therapy. He currently denies any chest pain, shortness of breath, fever chills, nausea or vomiting. Objective - Vital Signs Vital signs: Vital Signs Temp 97.5 F L 09/05/20 07:31 Pulse 68 09/05/20 07:31 Resp 18 09/05/20 07:31 BP 119/68 09/05/20 07:31 Pulse Ox 98 09/05/20 07:31 Intake & Output 09/04/20 09/05/20 09/05/20 18:59 06:59 18:59 Intake Total 1801 450 Output Total 50 Balance 1751 450 Weight 95.3 kg Intake: IV 1801 Intake, IV Titration 450 Amount Lactated Ringers 1,000 ml 300 @ 60 mls/hr IV .[id number] HEMAL Rx#:[id number] ceFAZolin 2 gm In Sodium 150 Chloride 0.9% 50 ml @ 100 mls/hr IVPB Q8H HEMAL Rx#: [id number] Output: Estimated Blood Loss 50 Other: # Voids 2 - Exam Right lower extremity: Incision is clean, dry, and intact. The exofin fusion tape is in good condition. There is minimal soft tissue swelling and ecchymosis surrounding the medial and lateral aspects of the incision. Calf is soft, no tenderness with palpation. Plantar flexion, dorsiflexion, EHL, FHL are intact. Sensory exam to light touch throughout the extremity is intact, dorsal pedis pulses 2+. - Labs CBC & Chem 7: 09/05/20 06:14 09/05/20 06:14 Labs: Abnormal Lab Results - Last 24 Hours (Table) 09/05/20 09/05/20 Range/Units 06:14 06:14 WBC 11.7 H (3.8-10.6) k/uL RBC 3.26 L (4.30-5.90) m/uL Hgb 11.2 L D (13.0-17.5) gm/dL Hct 33.0 L (39.0-53.0) % MCV 101.2 H (80.0-100.0) fL Neutrophils # 9.2 H (1.3-7.7) k/uL Monocytes # 1.1 H (0-1.0) k/uL Sodium 130 L (135-145) mmol/L Chloride 92 L (96-109) mmol/L BUN 7.0 L (9.0-27.0) mg/dL BUN/Creatinine Ratio 10.00 L (12.00-20.00) Ratio Glucose 119 H (70-110) mg/dL Assessment and Plan Assessment: Postop day #1 status post right total knee arthroplasty Plan: Pain control, plan for discharge home on oral medication DVT prophylaxis, aspirin 81 mg twice a day Wound care instructions discussed Icing and elevating techniques discussed Home health care after discharge Medical recommendations Planning for discharge home today Time with Patient: Less than 30
--- NOTE | 2020-09-05 10:32 | P.DS ---
Providers Date of admission: 09/04/2020 Expected date of discharge: 09/05/20 Attending physician: Isaiah Sheridan Consults: 09/04/20 14:05 Consult Physician Routine Consulting Provider: Valeria Olivera Reason/Comments: Medical Management Do you want consulting provider notified?: Yes Primary care physician: Valeria Olivera Hospital Course: Date of admission: 09/04/2020 Date of discharge: 09/05/2020 Admission diagnosis: Status post right total knee arthroplasty Discharge diagnosis: Same Attending physician: Dr. Sheridan Surgical procedures: Right total knee arthroplasty Brief history: Patient is a 59-year-old male with a history of progressive primary right knee osteoarthritis. At this point patient has failed conservative treatment measures and has opted to proceed with a elective right total knee arthroplasty. Hospital course: Details of patient's surgery can be found in operative report. Patient tolerated the procedure well and was subsequently transported to orthopedic floor. Patient's orthopeidc and medical care was provided daily. Patient had daily laboratory tests performed for evaluation of overall blood counts. Patient had daily physical therapy to include strengthening range of motion as well as education with walker ambulation. Patient was treated with Xarelto for their postoperative DVT prophylaxis during their inpatient stay. Patient was noted to have a relatively uneventful postoperative course. Patient reported satisfactory pain control with oral pain medications by postoperative day 0. Patient showed satisfactory progress with physical therapy. Patient moved steadily through the program and had no difficulty meeting the goals by postoperative day 1. Given patient's otherwise satisfactory course and having met physical therapy goals, plan is to discharge patient home on postoperative day 1. Discharge condition/disposition: Patient will be discharged home in stable condition. Discharge medications: Instructions are given on resumption of patient's normal daily medications per primary care recommendation, in addition patient will be prescribed Russell 7.5 mg/325 mg, tramadol 50 mg, Colace 100 mg. Discharge instructions: 1. Wound care and infection precautions, keep incision dry and covered while showering, no lotions, creams, moisturizers. No soaking, tubs, pools, hottubs. Do not scrub over the incision. 2. Weight-bear as tolerated with walker / cane until follow-up. 3. Ice and elevate when necessary. Do not exceed 20 minutes per hour with ice pack. 4. Utilize compression sleeve until seen at first follow up appointment. 5. Visiting nursing care. 6. Home physical therapy including home CPM. 7. Pain meds and anticoagulants per prescription. 8. Pain medication has potential to cause constipation. Increase oral fluid and fiber intake. Contact primary care provider if you have not had a bowel movement within 48 hours after discharge 9. No anti-inflammatory medication until discussed at first post operative visit, this including Motrin, Aleve, Mobic, Diclofenac. 10. Follow up in office at 2 weeks postop with Vladimir Granados PA-C 11. Follow up with your primary care doctor 7-10 days after discharge. 12. Contact [facility] with any questions, . Procedures: right total knee arthroplasty Patient Condition at Discharge: Good Plan - Discharge Summary Discharge Rx Participant: No New Discharge Prescriptions: New Aspirin [Adult Low Dose Aspirin EC] 81 mg PO BID #60 tablet. Docdaliate [Colace] 100 mg PO DAILY #30 capsule HYDROcodone/APAP 7.5-325MG [Russell 7.5] 1 - 2 each PO Q6HR PRN #42 tab PRN Reason: Pain traMADol HCl [Ultram] 50 mg PO Q6H PRN #28 tab PRN Reason: Pain Discontinued Aspirin 81 mg PO DAILY No Action Multivitamins, Thera [Multivitamin (formulary)] 1 tab PO DAILY Metoprolol Tartrate [Lopressor] 25 mg PO BID #0 Famotidine [Pepcid] 20 mg PO DAILY hydroCHLOROthiazide 25 mg PO DAILY Discharge Medication List Multivitamins, Thera [Multivitamin (formulary)] 1 tab PO DAILY 07/09/16 [History] Metoprolol Tartrate [Lopressor] 25 mg PO BID #0 11/30/19 [Rx] Famotidine [Pepcid] 20 mg PO DAILY 08/31/20 [History] hydroCHLOROthiazide 25 mg PO DAILY 08/31/20 [History] Aspirin [Adult Low Dose Aspirin EC] 81 mg PO BID #60 tablet. 09/05/20 [Rx] Docusate [Colace] 100 mg PO DAILY #30 capsule 09/05/20 [Rx] HYDROcodone/APAP 7.5-325MG [Russell 7.5] 1 - 2 each PO Q6HR PRN #42 tab 09/05/20 [Rx] traMADol HCl [Ultram] 50 mg PO Q6H PRN #28 tab 09/05/20 [Rx] Follow up Appointment(s)/Referral(s): [facility] [NON-STAFF] - (*Please call [facility] once home to arrange delivery of the Continuous Passive Motion (CPM) machine. ) [facility], [NON-STAFF] - ([facility] care will call you to set up your first visit which will be about 24 hours after discharge. ) Santy Granados, PAC [PHYSICIAN CLINICAL ASST] - 2 Weeks Activity/Diet/Wound Care/Special Instructions: Orthopedic Discharge Instructions: 1. Wound care and infection precautions, keep incision dry and covered while showering, no lotions, creams, moisturizers. No soaking, pools, hot tubs. Do not scrub over incision. 2. Weight-bear as tolerated with walker / cane until follow-up. 3. Ice and elevate when necessary. Do not exceed 20 minutes per hour with ice pack. 4. Utilize compression sleeve until seen at first follow up appointment. 5. Pain meds and anticoagulants per prescription. 6. Pain medication has potential to cause constipation. Increase oral fluid and fiber intake. Contact primary care provider if you have not had a bowel movement within 48 hours after discharge. 7. No anti-inflammatory medication until discussed at first post operative visit, this including Motrin, Aleve, Mobic, Diclofenac. 8. Follow up in office at 2 weeks postop with Vladimir Granados PA-C 9. Follow up with your primary care doctor 7-10 days after discharge. 10. Contact [facility] with any questions, . Discharge Disposition: HOME WITH HOME HEALTH SERVICES
[2020-09-05 13:57] VITALS: BP 147/79; PULSE 59; TEMP 97.8
--- NOTE | 2020-09-05 16:23 | PN ---
PROGRESS NOTE DATE OF SERVICE: 09/05/2020 This is a 59-year-old gentleman who was admitted with right total knee arthroplasty, has some mild hyponatremia, no chest pain. No palpitations. No fever. PHYSICAL EXAMINATION: Alert and oriented x3. Pulse is 59, blood pressure 147/70, respiration 18, temperature 97.8, pulse ox 98% on room air. HEENT: Conjunctivae normal. NECK: No jugular venous distension. CARDIOVASCULAR SYSTEM: S1, S2, muffled. RESPIRATION: Breath sounds diminished at the bases, no rhonchi, no crackles. ABDOMEN: Soft, nontender. LEGS: Status post surgery. LABS: WBC 7.2, hemoglobin 11.2 sodium 130, potassium 3.5, glucose 119. ASSESSMENT: 1. Status post right total knee arthroplasty. 2. Hyponatremia. 3. Bradycardia, possibly sinus. 4. Gastroesophageal reflux disease. 5. Hypertension. 6. History of degenerative joint disease. 7. History of seizure disorder. 8. History of back surgery. 9. History of cardiac catheterization. 10.Remote history of nicotine dependence. 11.FULL CODE. RECOMMENDATION: Recommend to continue current management, recommend followup labs with the primary physician. Resume the rest of the medications. DVT prophylaxis per Orthopedic Surgery. Further recommendations to follow. MMODL / IJN: [id number] /
== END 2020-09-05 15:30 | disposition home health service (06) ==
LOC: OR 10:32 → 5NMEDONC 14:45 → OR 09-05 15:30
PROVIDERS: ATTEND Orthopaedic Surgery
DX: M17.11 Unilateral primary osteoarthritis, right knee (principal); M81.0 Age-related osteoporosis without current pathological fracture; M25.761 Osteophyte, right knee; I10 Essential (primary) hypertension; E87.1 Hypo-osmolality and hyponatremia; G40.909 Epilepsy, unspecified, not intractable, without status epilepticus; K21.9 Gastro-esophageal reflux disease without esophagitis; Z79.82 Long term (current) use of aspirin; Z79.899 Other long term (current) drug therapy; Z80.1 Family history of malignant neoplasm of trachea, bronchus and lung; Z87.891 Personal history of nicotine dependence
CPT/HCPCS: 97110; 97161; 64448; 76942; 80048; 85025; 88300; 73560; 27447; C1713; C1776; J2250; J0171; J1100; J0690 ×3; J2405 ×2; J3010; J1885; J2795 ×2; J2704; J0735

== ENCOUNTER 2021-03-13 19:22 | Emergency (ER) | payer MEDICAID ==
[2021-03-13 19:29] VITALS: RESP 18; TEMP 98.1
[2021-03-13 20:14] LABS: ALT 22 U/L (4-49); AST 24 U/L (17-59); African American GFR (CKD) >90 (>60 ml/min/1.73 sqM); Albumin 3.6 g/dL (3.5-5.0); Alkaline Phosphatase 175 U/L (38-126); Anion Gap 8 mmol/L; Blood Urea Nitrogen 11 mg/dL (9-20); Calcium 9.7 mg/dL (8.4-10.2); Carbon Dioxide 28 mmol/L (22-30); Chloride 98 mmol/L (98-107); Glucose 95 mg/dL (74-99); Magnesium 1.7 mg/dL (1.6-2.3); Non-African American GFR(CKD) >90 (>60 ml/min/1.73 sqM); Potassium 3.6 mmol/L (3.5-5.1); Sodium 134 mmol/L (137-145); Total Bilirubin 0.2 mg/dL (0.2-1.3); Total Protein 7.2 g/dL (6.3-8.2)
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
[2021-03-13 20:25] LABS: Basophils # (A) 0.1 k/uL (0-0.2); Basophils % (A) 0 %; Eosinophils # (A) 0.3 k/uL (0-0.7); Eosinophils % (A) 1 %; HCT 41.1 % (39.0-53.0); HGB 13.5 gm/dL (13.0-17.5); Lymphocytes # (A) 2.2 k/uL (1.0-4.8); Lymphocytes % (A) 12 %; MCH 32.6 pg (25.0-35.0); MCHC 32.8 g/dL (31.0-37.0); MCV 99.3 fL (80.0-100.0); Mean Platelet Volume 6.5; Monocytes % (A) 6 %; Neutrophils # (A) 14.8 k/uL (1.3-7.7); Neutrophils % (A) 80 %; Platelet Count 495 k/uL (150-450); RBC 4.14 m/uL (4.30-5.90); RDW 12.8 % (11.5-15.5); WBC 18.5 k/uL (3.8-10.6)
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
[2021-03-13 22:07] LABS: Appearance,Urine Clear (Clear); Bilirubin,Urine Negative (Negative); Blood,Urine Negative (Negative); Color,Urine Yellow; Glucose,Urine (UA) Negative (Negative); Hyaline Casts,Urine 7 /lpf (0-2); Ketones,Urine Negative (Negative); Leukocyte Esterase,Urine Trace (Negative); Mucus,Urine Few /hpf; Nitrite,Urine Negative (Negative); Protein,Urine Trace (Negative); RBC,Urine 2 /hpf (0-5); Specific Gravity,Urine 1.022 (1.001-1.035); Squamous Epithelial Cell,Urine <1 /hpf (0-4); WBC,Urine 3 /hpf (0-5)
[2021-03-13 22:43] VITALS: BP 120/69; PULSE 73
== END 2021-03-13 22:43 | disposition home or self-care (01) ==
LOC: EC 19:22
DX: D72.829 Elevated white blood cell count, unspecified (principal); R19.7 Diarrhea, unspecified; K21.9 Gastro-esophageal reflux disease without esophagitis; M19.90 Unspecified osteoarthritis, unspecified site; I10 Essential (primary) hypertension; G40.909 Epilepsy, unspecified, not intractable, without status epilepticus; Z87.891 Personal history of nicotine dependence; Z79.899 Other long term (current) drug therapy; Z79.82 Long term (current) use of aspirin
CPT/HCPCS: 36415; 71046; 80053; 81001; 83605; 83735; 85025; 87040; 93005; 99284

== ENCOUNTER 2021-03-24 13:35 | Emergency (ER) | payer MEDICAID ==
[2021-03-24 13:41] VITALS: RESP 18
[2021-03-24 14:05] LABS: Glucose,Whole Blood 97 mg/dL (75-99)
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
[2021-03-24 14:14] LABS: Basophils # (A) 0.1 k/uL (0-0.2); Basophils % (A) 0 %; Eosinophils # (A) 0.4 k/uL (0-0.7); Eosinophils % (A) 2 %; HCT 40.8 % (39.0-53.0); HGB 13.7 gm/dL (13.0-17.5); Lymphocytes # (A) 2.1 k/uL (1.0-4.8); Lymphocytes % (A) 11 %; MCH 32.6 pg (25.0-35.0); MCHC 33.6 g/dL (31.0-37.0); Mean Platelet Volume 6.3; Monocytes # (A) 1.2 k/uL (0-1.0); Monocytes % (A) 6 %; Neutrophils # (A) 15.8 k/uL (1.3-7.7); Neutrophils % (A) 80 %; Platelet Count 503 k/uL (150-450); RDW 11.8 % (11.5-15.5); WBC 19.6 k/uL (3.8-10.6)
[2021-03-24 14:26] LABS: ALT 23 U/L (4-49); African American GFR (CKD) >90 (>60 ml/min/1.73 sqM); Albumin 3.8 g/dL (3.5-5.0); Anion Gap 7 mmol/L; Blood Urea Nitrogen 16 mg/dL (9-20); Calcium 9.8 mg/dL (8.4-10.2); Carbon Dioxide 32 mmol/L (22-30); Chloride 97 mmol/L (98-107); Glucose 93 mg/dL (74-99); Non-African American GFR(CKD) >90 (>60 ml/min/1.73 sqM); Sodium 136 mmol/L (137-145); Total Bilirubin 0.5 mg/dL (0.2-1.3); Total Protein 7.6 g/dL (6.3-8.2)
[2021-03-24 14:28] LABS: Partial Thromboplastin Time 23.4 sec (22.0-30.0); Prothrombin Time 10.4 sec (9.0-12.0)
[2021-03-24 14:31] LABS: AST 28 U/L (17-59); Alkaline Phosphatase 150 U/L (38-126); Potassium 4.4 mmol/L (3.5-5.1)
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
[2021-03-24 15:09] LABS: Amorphous Sediment,Urine Rare /hpf; Appearance,Urine Cloudy (Clear); Bacteria,Urine Many /hpf; Bilirubin,Urine Negative (Negative); Blood,Urine Negative (Negative); Color,Urine Yellow; Glucose,Urine (UA) Negative (Negative); Granular Casts,Urine 15 /lpf (0); Ketones,Urine Negative (Negative); Leukocyte Esterase,Urine Negative (Negative); Nitrite,Urine Negative (Negative); PH, Urine 7.5 (5.0-8.0); Protein,Urine Negative (Negative); RBC,Urine <1 /hpf (0-5); Specific Gravity,Urine 1.014 (1.001-1.035); Squamous Epithelial Cell,Urine <1 /hpf (0-4); Urobilinogen,Urine <2.0 mg/dL (<2.0); WBC,Urine 3 /hpf (0-5)
[2021-03-24 16:44] VITALS: BP 152/96; PULSE 69; TEMP 98.9
== END 2021-03-24 17:25 | disposition other institution (70) ==
LOC: EC 13:35
DX: G93.9 Disorder of brain, unspecified (principal); R91.8 Other nonspecific abnormal finding of lung field; R53.1 Weakness; K21.9 Gastro-esophageal reflux disease without esophagitis; M19.90 Unspecified osteoarthritis, unspecified site; G40.909 Epilepsy, unspecified, not intractable, without status epilepticus; I10 Essential (primary) hypertension; Z79.82 Long term (current) use of aspirin; Z87.891 Personal history of nicotine dependence
CPT/HCPCS: 36415; 70450; 71046; 80053; 81001; 84484; 85025; 85610; 85730; 93005; 99285

== ENCOUNTER → 2021-07-25 | Outpatient (CLI) | payer MEDICAID ==
[2021-07-25 18:40] LABS: Basophils # (A) 0.02 X 10*3/uL (0.00-0.10); Basophils % (A) 0.2 %; Eosinophils # (A) 0.06 X 10*3/uL (0.04-0.35); Eosinophils % (A) 0.7 %; HCT 24.8 % (39.6-50.0); Lymphocytes # (A) 2.61 X 10*3/uL (0.90-5.00); Lymphocytes % (A) 28.6 %; MCH 34.9 pg (27.0-32.0); MCHC 32.3 g/dL (32.0-37.0); MCV 108.3 fL (80.0-97.0); Mean Platelet Volume 9.8 fL (9.5-12.2); Monocytes # (A) 1.14 X 10*3/uL (0.20-1.00); Monocytes % (A) 12.5 %; Neutrophils # (A) 5.27 X 10*3/uL (1.80-7.70); Neutrophils % (A) 57.7 %; Platelet Count 94 X 10*3/uL (140-440); RBC 2.29 X 10*6/uL (4.40-5.60); RDW 20.4 % (11.5-14.5); WBC 9.13 X 10*3/uL (4.50-10.00)
[2021-07-25 18:41] LABS: Macrocytosis (M) 2+
[2021-07-25 21:43] LABS: Erythrocyte Sedimentation Rate 127 mm/Hr (0-20)
== END | disposition home or self-care (01) ==
LOC: LABWHC1 11:25
PROVIDERS: ATTEND Orthopaedic Surgery
DX: M70.22 Olecranon bursitis, left elbow (principal)
CPT/HCPCS: 36415; 85025; 85652; 86140

== ENCOUNTER → 2021-08-20 | Outpatient (CLI) | payer MEDICAID ==
[2021-08-20 19:29] LABS: Anion Gap 10.5 mmol/L (4.00-12.00); Carbon Dioxide 23.2 mmol/L (21.6-31.8); Potassium 4.5 mmol/L (3.5-5.5)
== END | disposition home or self-care (01) ==
LOC: LABWHC1 11:12
PROVIDERS: ATTEND Family Medicine
DX: I10 Essential (primary) hypertension (principal)
CPT/HCPCS: 36415; 80051

== ENCOUNTER → 2021-08-28 | Outpatient (CLI) | payer MEDICAID ==
[2021-08-28 21:25] LABS: Basophils # (A) 0.06 X 10*3/uL (0.00-0.10); Basophils % (A) 0.7 %; Eosinophils % (A) 1.2 %; HCT 24.2 % (39.6-50.0); Lymphocytes # (A) 2.13 X 10*3/uL (0.90-5.00); Lymphocytes % (A) 26.5 %; MCHC 33.1 g/dL (32.0-37.0); Macrocytosis (M) 3+; Mean Platelet Volume 11.6 fL (9.5-12.2); Monocytes # (A) 0.69 X 10*3/uL (0.20-1.00); Monocytes % (A) 8.6 %; Neutrophils # (A) 5.03 X 10*3/uL (1.80-7.70); Neutrophils % (A) 62.6 %; Platelet Count 55 X 10*3/uL (140-440); RBC 2.05 X 10*6/uL (4.40-5.60); RDW 18.3 % (11.5-14.5); WBC 8.04 X 10*3/uL (4.50-10.00)
== END | disposition home or self-care (01) ==
LOC: LABWHC1 12:45
PROVIDERS: ATTEND Family Medicine
DX: D64.9 Anemia, unspecified (principal)
CPT/HCPCS: 36415; 85025

== ENCOUNTER 2022-01-02 16:35 | Emergency (ER) | payer MEDICARE ==
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
[2022-01-03 00:33] VITALS: RESP 16
[2022-01-03 01:14] VITALS: BP 119/65; PULSE 78; TEMP 97.9
== END 2022-01-03 01:15 | disposition home or self-care (01) ==
LOC: EC 16:35
DX: D69.6 Thrombocytopenia, unspecified (principal); I10 Essential (primary) hypertension; K21.9 Gastro-esophageal reflux disease without esophagitis; G40.909 Epilepsy, unspecified, not intractable, without status epilepticus; M19.90 Unspecified osteoarthritis, unspecified site; Z87.891 Personal history of nicotine dependence; Z79.82 Long term (current) use of aspirin; Z79.899 Other long term (current) drug therapy
CPT/HCPCS: 99283 ×2; 86900; 86901; 86850; 36430; P9073

== ENCOUNTER → 2022-01-02 | Outpatient (CLI) | payer MEDICARE ==
[2022-01-02 16:17] LABS: Anisocytosis Slight; Basophils % (A) 0 %; Eosinophils # (A) 0.1 k/uL (0-0.7); Eosinophils % (A) 1 %; HGB 7.9 gm/dL (13.0-17.5); Lymphocytes # (A) 1.9 k/uL (1.0-4.8); Lymphocytes % (A) 28 %; MCH 37.4 pg (25.0-35.0); MCV 113.3 fL (80.0-100.0); Macrocytosis Marked; Mean Platelet Volume 8.9; Monocytes # (A) 0.4 k/uL (0-1.0); Monocytes % (A) 6 %; Neutrophils # (A) 4.4 k/uL (1.3-7.7); Neutrophils % (A) 63 %; RBC 2.11 m/uL (4.30-5.90); RDW 16.8 % (11.5-15.5); WBC 6.9 k/uL (3.8-10.6)
[2022-01-02 16:25] LABS: ALT 17 U/L (4-49); AST 18 U/L (17-59); African American GFR (CKD) >90 (>60 ml/min/1.73 sqM); Albumin 4.1 g/dL (3.5-5.0); Albumin/Globulin Ratio 1.3; Alkaline Phosphatase 72 U/L (38-126); Anion Gap 8 mmol/L; Blood Urea Nitrogen 20 mg/dL (9-20); Calcium 8.9 mg/dL (8.4-10.2); Carbon Dioxide 24 mmol/L (22-30); Chloride 103 mmol/L (98-107); Globulin 3.2 g/dL; Glucose 90 mg/dL (74-99); Non-African American GFR(CKD) 87 (>60 ml/min/1.73 sqM); Potassium 4.3 mmol/L (3.5-5.1); Sodium 135 mmol/L (137-145); Total Bilirubin 0.3 mg/dL (0.2-1.3); Total Protein 7.3 g/dL (6.3-8.2)
[2022-01-02 16:42] LABS: T4, Free (Free Thyroxine) 1.18 ng/dL (0.78-2.19)
[2022-01-02 16:46] LABS: Platelet Count 16 k/uL (150-450)
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
== END | disposition home or self-care (01) ==
LOC: RADCTMAIN 15:28
PROVIDERS: ATTEND Radiology Radiation Oncology
DX: C15.5 Malignant neoplasm of lower third of esophagus (principal); G93.89 Other specified disorders of brain
CPT/HCPCS: 84439; 84481; 80053; 84443; 85025; 70470; 36415; Q9967

== ENCOUNTER → 2022-02-25 | Outpatient (CLI) | payer MEDICARE ==
[2022-02-25 09:46] LABS: Anisocytosis Slight; HGB 8.2 gm/dL (13.0-17.5); MCHC 34.1 g/dL (31.0-37.0); Macrocytosis Moderate; Mean Platelet Volume 8.7; RBC 2.33 m/uL (4.30-5.90); RDW 19.4 % (11.5-15.5)
[2022-02-25 09:54] LABS: ALT 20 U/L (4-49); AST 26 U/L (17-59); African American GFR (CKD) >90 (>60 ml/min/1.73 sqM); Albumin 3.9 g/dL (3.5-5.0); Albumin/Globulin Ratio 1.3; Alkaline Phosphatase 86 U/L (38-126); Anion Gap 6 mmol/L; Blood Urea Nitrogen 13 mg/dL (9-20); Calcium 9.2 mg/dL (8.4-10.2); Carbon Dioxide 29 mmol/L (22-30); Chloride 99 mmol/L (98-107); Glucose 108 mg/dL (74-99); Non-African American GFR(CKD) >90 (>60 ml/min/1.73 sqM); Potassium 4.1 mmol/L (3.5-5.1); Sodium 134 mmol/L (137-145); Total Bilirubin 0.7 mg/dL (0.2-1.3); Total Protein 6.9 g/dL (6.3-8.2)
[2022-02-25 09:55] LABS: MCV 102.7 fL (80.0-100.0)
[2022-02-25 10:11] LABS: T4, Free (Free Thyroxine) 1.45 ng/dL (0.78-2.19)
[2022-02-25 10:38] LABS: Band Neutrophils % 1 %; Eosinophils # (M) 0.01 k/uL (0-0.7); Monocytes # (M) 0.34 k/uL (0-1.0); Neutrophils % (M) 57 %; Nucleated Red Blood Cells 0 /100 WBC (0-0); Total Cells Counted 100
[2022-02-25 10:40] LABS: Platelet Count 18 k/uL (150-450)
[2022-02-25 10:41] LABS: Rouleaux Present
[2022-02-25 15:22] LABS: WBC 1.3 k/uL (3.8-10.6)
== END | disposition home or self-care (01) ==
LOC: LABWHC1 08:30
PROVIDERS: ATTEND Nurse Practitioner
DX: C34.90 Malignant neoplasm of unspecified part of unspecified bronchus or lung (principal)
CPT/HCPCS: 36415; 80053; 84439; 84443; 84481; 85025

== ENCOUNTER 2022-04-24 13:59 | Inpatient (IN) | payer MEDICARE ==
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
[2022-04-24 15:14] LABS: Anisocytosis Moderate; Basophils % (A) 0 %; Eosinophils % (A) 1 %; HCT 22.9 % (39.0-53.0); HGB 8.2 gm/dL (13.0-17.5); Lymphocytes # (A) 1.1 k/uL (1.0-4.8); Lymphocytes % (A) 17 %; MCH 34.4 pg (25.0-35.0); MCHC 35.7 g/dL (31.0-37.0); MCV 96.1 fL (80.0-100.0); Macrocytosis Moderate; Mean Platelet Volume 11.3; Monocytes # (A) 0.6 k/uL (0-1.0); Monocytes % (A) 10 %; Neutrophils # (A) 4.2 k/uL (1.3-7.7); Neutrophils % (A) 67 %; RBC 2.38 m/uL (4.30-5.90); RDW 23.2 % (11.5-15.5); WBC 6.3 k/uL (3.8-10.6)
[2022-04-24 15:20] LABS: ALT 36 U/L (4-49); AST 36 U/L (17-59); African American GFR (CKD) >90 (>60 ml/min/1.73 sqM); Alkaline Phosphatase 183 U/L (38-126); Anion Gap 13 mmol/L; Blood Urea Nitrogen 10 mg/dL (9-20); Calcium 9.1 mg/dL (8.4-10.2); Carbon Dioxide 21 mmol/L (22-30); Chloride 100 mmol/L (98-107); Glucose 83 mg/dL (74-99); Magnesium 1.5 mg/dL (1.6-2.3); Non-African American GFR(CKD) >90 (>60 ml/min/1.73 sqM); Potassium 3.5 mmol/L (3.5-5.1); Sodium 134 mmol/L (137-145); Total Bilirubin 0.9 mg/dL (0.2-1.3); Total Protein 7.4 g/dL (6.3-8.2)
[2022-04-24 15:27] LABS: INR 0.9 (<1.2); Prothrombin Time 9.9 sec (9.0-12.0)
[2022-04-24 15:37] LABS: Partial Thromboplastin Time 19.4 sec (22.0-30.0)
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
[2022-04-24 15:49] LABS: Platelet Count 26 k/uL (150-450)
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
[2022-04-24] MEDS ORDERED: HYDROmorphone 1 MG/ML 1 ML SYRINGE IVP STA (16:20)
[2022-04-24] MEDS ORDERED: MAGNESIUM OXIDE 400 MG TAB PO STA (16:21)
[2022-04-24] MEDS ORDERED: SODIUM CHLORIDE 0.9% 1,000 ML IV STA (16:47)
[2022-04-24] MEDS ORDERED: NALOXONE 0.4 MG/ML 1 ML VIAL IV PRN (17:10)
[2022-04-24] MEDS: HYDROmorphone 1 MG/ML 1 ML SYRINGE IVP PRN ×2 (19:52→23:00)
[2022-04-24] MEDS: SODIUM CHLORIDE 0.9% 1,000 ML IV SCH ×2 (23:33→23:34)
[2022-04-25] MEDS: HYDROmorphone 1 MG/ML 1 ML SYRINGE IVP PRN ×4 (01:32→21:02)
[2022-04-25] MEDS ORDERED: PROCHLORPERAZINE 10 MG TAB PO PRN (02:09)
[2022-04-25] MEDS ORDERED: LIDOCAINE-PRILOCAINE 2.5-2.5% CREAM 5 GM TUBE TOPICAL PRN (02:09)
[2022-04-25] MEDS ORDERED: ONDANSETRON 4 MG TAB PO PRN (02:09)
--- NOTE | 2022-04-25 02:40 | XR ---
EXAM: XR Chest, 1 View CLINICAL HISTORY: ITS.REASON XR Reason: shortness of breath TECHNIQUE: Frontal view of the chest. COMPARISON: CXR April 24, 2023. FINDINGS/IMPRESSION: Airspace consolidation in the medial aspect the left upper lung field. No pneumothorax. Trace bilateral pleural effusions. Cardiomegaly. Calcified aorta. Right Port-A-Cath terminates in the SVC.
[2022-04-25] MEDS: HYDROcodone/APAP 7.5-325MG 1 EACH TAB PO PRN ×3 (03:30→22:32)
[2022-04-25] MEDS: ACETAMINOPHEN TAB 325 MG TAB PO PRN (05:49)
[2022-04-25 07:13] LABS: Anisocytosis Marked; MCH 34.7 pg (25.0-35.0); MCHC 35.4 g/dL (31.0-37.0); MCV 97.8 fL (80.0-100.0); Macrocytosis Moderate; RBC 1.96 m/uL (4.30-5.90); WBC 5.2 k/uL (3.8-10.6)
[2022-04-25 07:30] LABS: African American GFR (CKD) >90 (>60 ml/min/1.73 sqM); Anion Gap 8 mmol/L; Blood Urea Nitrogen 10 mg/dL (9-20); Calcium 7.7 mg/dL (8.4-10.2); Carbon Dioxide 22 mmol/L (22-30); Chloride 98 mmol/L (98-107); Glucose 117 mg/dL (74-99); Magnesium 1.3 mg/dL (1.6-2.3); Non-African American GFR(CKD) >90 (>60 ml/min/1.73 sqM); Potassium 3.8 mmol/L (3.5-5.1); Sodium 128 mmol/L (137-145)
[2022-04-25 07:35] LABS: HCT 19.1 % (39.0-53.0); HGB 6.8 gm/dL (13.0-17.5)
[2022-04-25 07:36] LABS: Platelet Count 19 k/uL (150-450)
[2022-04-25] MEDS: METOPROLOL TARTRATE 50 MG TAB PO SCH ×2 (08:16→09:03)
[2022-04-25] MEDS: PYRIDOXINE 50 MG TAB PO SCH (08:26)
[2022-04-25] MEDS: PANTOPRAZOLE 40 MG TABLET PO SCH (08:27)
[2022-04-25] MEDS: MULTIVITAMINS, THERA 1 EACH TAB PO SCH (08:27)
[2022-04-25] MEDS: SERTRALINE 50 MG TAB PO SCH (08:27)
[2022-04-25] MEDS ORDERED: ASPIRIN 81 MG PO SCH (09:00)
[2022-04-25] MEDS: SODIUM CHLORIDE 0.9% 1,000 ML IV SCH ×3 (10:02→22:03)
[2022-04-25 10:54] LABS: Glucose,Whole Blood 122 mg/dL (70-110)
[2022-04-25 11:06] LABS: Glucose,Whole Blood 118 mg/dL (70-110)
[2022-04-25] MEDS ORDERED: Potassium Replacement Protocol 1 EACH MISC MISCELLANE PRN (11:10)
[2022-04-25] MEDS ORDERED: Magnesium Replacement Protocol 1 EACH MISC MISCELLANE PRN (11:10)
[2022-04-25] MEDS ORDERED: SODIUM CHLORIDE 0.9% 500 ML 500 ML IV ONE (11:42)
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
[2022-04-25] MEDS ORDERED: POTASSIUM CHLORIDE ER 20 MEQ TAB.ER PO SCH (12:00)
[2022-04-25] MEDS: MAGNESIUM SULFATE-D5W PMX 1 GM in DEXTROSE/WATER 1 100ML.BAG IVPB SCH ×3 (12:04→19:08)
[2022-04-25 12:19] LABS: Reticulocyte % 3.4 % (0.5-2.0)
[2022-04-25 12:25] LABS: Eosinophils # (M) 0.16 k/uL (0-0.7); Lymphocytes # (M) 1.14 k/uL (1.0-4.8); Monocytes # (M) 0.78 k/uL (0-1.0); Neutrophils # (M) 3.12 k/uL (1.3-7.7); Neutrophils % (M) 60 %; Nucleated Red Blood Cells 0 /100 WBC (0-0); Total Cells Counted 100
[2022-04-25 12:36] LABS: Uric Acid 3.6 mg/dL (3.5-8.5)
--- NOTE | 2022-04-25 12:44 | US ---
EXAMINATION TYPE: US venous doppler duplex UE RT DATE OF EXAM: 04/25/2022 COMPARISON: NONE CLINICAL HISTORY: RU extremity pain, doppler RU chest port area too. SIDE PERFORMED: Right Technically difficult study performed portable in ICU. Patient has severe shoulder pain and is unable to move arm. Right Arm: Negative for DVT IJV, subclavian, axilla, brachial, basilic, cephalic, radial, and ulnar veins interrogated and show n o evidence for DVT. Area of port scanned, area is shadowed out . IMPRESSION: 1. Limited exam demonstrates no diagnostic evidence of DVT as visualized.
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
[2022-04-25 13:36] LABS: Appearance,Urine Clear (Clear); Bilirubin,Urine Negative (Negative); Blood,Urine Negative (Negative); Color,Urine Colorless; Glucose,Urine (UA) Negative (Negative); Ketones,Urine Negative (Negative); Leukocyte Esterase,Urine Negative (Negative); Nitrite,Urine Negative (Negative); PH, Urine 5.5 (5.0-8.0); Protein,Urine Negative (Negative); Specific Gravity,Urine 1.003 (1.001-1.035); Urobilinogen,Urine <2.0 mg/dL (<2.0)
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
--- NOTE | 2022-04-25 18:43 | CA ---
Transthoracic Echo Report Name: Phi Mendoza Age: 61 Gender: M : 1960 Exam Date: 04/25/2022 14:34 Exam Location: [facility] Ht (in): 74 Wt (lb): 212 Ordering Physician: Mayra Vinson MD ([id number]) Attending/Referring Phys: Community Living Coach Socorro Andrade RDCS Procedure CPT: Indications: svt Cardiac Hx: Technical Quality: Fair Contrast 1: Total Dose (mL): Contrast 2: Total Dose (mL): MEASUREMENTS (Male / Female) Normal Values 2D ECHO LV Diastolic Diameter PLAX 3.4 cm 4.2 - 5.9 / 3.9 - 5.3 cm LV Systolic Diameter PLAX 2.1 cm IVS Diastolic Thickness 1.0 cm 0.6 - 1.0 / 0.6 - 0.9 cm LVPW Diastolic Thickness 0.9 cm 0.6 - 1.0 / 0.6 - 0.9 cm LV Relative Wall Thickness 0.6 RV Internal Dim ED PLAX 3.1 cm M-MODE Aortic Root Diameter MM 3.4 cm LA Systolic Diameter MM 3.9 cm LA Ao Ratio MM 1.1 MV E Point Septal Separation 1.4 cm AV Cusp Separation MM 2.0 cm DOPPLER AV Peak Velocity 116.3 cm/s AV Peak Gradient 5.4 mmHg MR Peak Velocity 127.9 cm/s MR Peak Gradient 6.5 mmHg TR Peak Velocity 207.8 cm/s TR Peak Gradient 17.3 mmHg Right Ventricular Systolic Press 20.6 mmHg FINDINGS Left Ventricle Normal Left ventricular size, wall thickness, systolic function with no obvious regional wall motion abnormalities. Normal Left ventricular diastolic filling pattern. Left ventricular ejection fraction is estimated at 55-60_%. Right Ventricle The right ventricle is normal in size and function. Right Atrium The right atrium is normal in size. Left Atrium The left atrium is normal in size. Mitral Valve Structurally normal mitral valve without significant stenosis or prolapse. There is trace mitral regurgitation. Aortic Valve Structurally normal aortic valve without significant sclerosis or stenosis. There is no aortic regurgitation. Tricuspid Valve Structurally normal tricuspid valve without significant stenosis. Pulmonary artery systolic pressure is normal. Trace tricuspid regurgitation. Pulmonic Valve Structurally normal pulmonic valve without significant stenosis. There is no pulmonic regurgitation. Pericardium Normal pericardium without effusion. Aorta Normal aortic root dimension. CONCLUSIONS Normal LV size and systolic function Normal RV size and function Previewed by: Dr. Raffi Martinez MD (Electronically Signed) Final Date: 25 April 2022 18:42
[2022-04-25 19:39] LABS: % Iron Saturation 33.03 (15.00-50.00)
[2022-04-25] MEDS ORDERED: FAMOTIDINE 20 MG/2 ML VIAL IV SCH (21:00)
[2022-04-25] MEDS: METOPROLOL TARTRATE 25 MG TAB PO SCH (21:03)
[2022-04-25 22:48] LABS: Anisocytosis Moderate; HCT 23.9 % (39.0-53.0); HGB 8.1 gm/dL (13.0-17.5); MCH 33.6 pg (25.0-35.0); MCHC 33.9 g/dL (31.0-37.0); MCV 99.1 fL (80.0-100.0); Macrocytosis Moderate; Mean Platelet Volume 8.9; RBC 2.41 m/uL (4.30-5.90); RDW 23.7 % (11.5-15.5); WBC 6.6 k/uL (3.8-10.6)
[2022-04-25 22:51] LABS: Platelet Count 19 k/uL (150-450)
--- NOTE | 2022-04-25 23:26 | CT ---
EXAMINATION TYPE: CT angio chest DATE OF EXAM: 04/25/2022 COMPARISON: None HISTORY: sob CT DLP: 511.9 mGycm Automated exposure control for dose reduction was used. CONTRAST: Performed with IV Contrast, patient injected with 50 mL of Isovue 370. There are Three-D postprocessed images. There is bullous pulmonary emphysema. There is extensive coarse interstitial and airspace infiltrate in the mid and lower lung lambert. There is small left pleural effusion. Heart is enlarged. No pericar dial effusion. There is small right pleural effusion. There is no mediastinal adenopathy. There are no hilar masses. There is no evidence of filling defect in the pulmonary arteries. Thoracic spine is intact. Sternum i s intact. The ribs appear intact. IMPRESSION: No evidence of pulmonary embolism. Extensive pulmonary infiltrates consistent with pneumonia. Heart failure also possible. Mild pleural effusions.
--- NOTE | 2022-04-25 23:32 | CT ---
EXAMINATION TYPE: CT shoulder RT w con DATE OF EXAM: 04/25/2022 COMPARISON: None HISTORY: rt shoulder pain CT DLP: 746.3 mGycm Automated exposure control for dose reduction was used. CONTRAST: Performed with IV Contrast, patient injected with 100 mL of Isovue 370. Images obtained from the top of the AC joint to the mid shaft of the humerus with IV contrast. There is hypertrophic spurring at the AC joint. No fracture seen. There is narrowing and spurring at the glenohumeral joint. There is spurring at the greater tuberosity of the humerus. Scapula is intact . No evidence of scapular fracture. No evidence of soft tissue mass. IMPRESSION: Hypertrophic osteoarthritis at the glenohumeral joint. Mild spurring at the AC joint. No fracture see n.
[2022-04-26] MEDS ORDERED: VANCOMYCIN IV PER PHARMACY 1 EACH MISC MISCELLANE PRN (00:05)
[2022-04-26] MEDS ORDERED: VANCOMYCIN 1,500 MG in SODIUM CHLORIDE 0.9% 250 ML IVPB ONE (00:15)
[2022-04-26] MEDS: PIPERACILLIN-TAZOBACTAM 3.375 GM in SODIUM CHLORIDE 0.9% 100 ML IVPB SCH ×3 (00:40→16:17)
[2022-04-26] MEDS: HYDROmorphone 1 MG/ML 1 ML SYRINGE IVP PRN ×6 (00:41→21:43)
[2022-04-26] MEDS: ACETAMINOPHEN TAB 325 MG TAB PO PRN (03:30)
[2022-04-26] MEDS: HYDROcodone/APAP 7.5-325MG 1 EACH TAB PO PRN ×3 (05:53→20:54)
[2022-04-26] MEDS: PANTOPRAZOLE 40 MG TABLET PO SCH (05:54)
[2022-04-26] MEDS: SODIUM CHLORIDE 0.9% 1,000 ML IV SCH ×2 (06:40→20:42)
--- NOTE | 2022-04-26 07:31 | XR ---
EXAMINATION TYPE: XR chest 1V portable DATE OF EXAM: 04/26/2022 7:04 AM COMPARISON: Chest radiographs from 04/25/2022 TECHNIQUE: XR chest 1V portable Frontal view of the chest. CLINICAL INDICATION:Male, 61 years old with history of pneumonia; FINDINGS: Lungs/Pleura: Scattered airspace opacities are seen throughout the lungs most pronounced in the left lung apex and the lung bases. There is no evidence of pleural effusion, or pneumothorax. Pulmonary vascularity: Unremarkable. Heart/mediastinum: Cardiomediastinal silhouette is unremarkable. Musculoskeletal: No acute osseous pathology. Other findings: Retained metallic density projects over the mediastinum. Lines/Tubes: [id number] projecting over the right hemithorax with distal tip at the cavoatrial junction. IMPRESSION: Scattered airspace opacities which are better characterized on CT from one day prior. Radiograph not significantly changed from one day prior.
[2022-04-26] MEDS: SERTRALINE 50 MG TAB PO SCH (08:41)
[2022-04-26] MEDS: VANCOMYCIN 1,500 MG in SODIUM CHLORIDE 0.9% 250 ML IVPB SCH ×2 (08:41→16:17)
[2022-04-26] MEDS: MULTIVITAMINS, THERA 1 EACH TAB PO SCH (08:41)
[2022-04-26] MEDS: METOPROLOL TARTRATE 25 MG TAB PO SCH ×2 (08:41→20:54)
--- NOTE | 2022-04-26 08:48 | P.PN ---
Subjective Progress Note Date: 04/26/22 Principal diagnosis: Right AC joint pain Patient was seen at bedside this morning resting, lying in semirecumbent position. Patient says he still having extreme amount of pain in the right shoulder region. Patient says the pain in the right shoulder has eased slightly since yesterday. Patient says whenever he attempts to move his right elbow at all the pain in his right shoulder is excruciating. Patient does say he has some radiation of pain into the neck on the right side as well as the right side of the chest. Patient denies change in vision, nausea, vomiting, loss of bowel/bladder control. Patient denies numbness or tingling in the digits of the upper extremities. Patient denies increasing chest pain/ increasing shortness of breath. Objective - Vital Signs Vital signs: Vital Signs Temp 97.7 F 04/26/22 08:36 Pulse 77 04/26/22 08:36 Resp 20 04/26/22 08:36 BP 112/60 04/26/22 08:36 Pulse Ox 96 04/26/22 08:36 FiO2 Intake & Output 04/25/22 04/26/22 04/26/22 18:59 06:59 18:59 Intake Total 1010 300 118 Output Total 400 950 Balance 610 -650 118 Intake: Intake, IV Titration 700 300 Amount Magnesium Sulfate-D5w Pmx 100 200 1 gm In Dextrose/Water 1 100ml.bag @ 100 mls/hr IVPB Q1H [facility] Rx#: [id number] Sodium Chloride 0.9% 1, 100 100 000 ml @ 100 mls/hr IV . Q10H [facility] Rx#:[id number] Sodium Chloride 0.9% 500 500 ml 500 ml @ 999 mls/hr IV .Q31M [facility] Rx#:[id number] Oral 118 Blood Product 310 Rc Irr As1 Unit 310 [id number] Output: Urine 400 950 Other: Voiding Method Urinal Urinal - Exam Negative for any open fractures, significant nodule/ecchymosis/erythema. AC jorge nt prominence/swelling on right side. Sensation: Sensation is equal, symmetric, bilaterally intact throughout the upper and lower extremities. Palpation: Significant TTP out of proportion to exam over right AC joint. Some moderate TTP near port on the right side of the chest. . Diffuse tenderness to palpation throughout rest exam on right upper extremity. Nontender to palpation throughout rest exam Range of motion: Patient has full range of motion in bilateral lower extremities and left upper extremity. Patient does have full range of motion in digits of right upper extremity. Patient does have significantly limited range of motion and the right upper extremity and wrist flexion/extension, elbow flexion/extension and shoulder elevation, abduction, external/internal rotation due to pain. Motor: Right upper extremity exam limited due to patient's pain. Extension Service Advisor strength on right upper extremity is 4/5. 5/5 in all other major motor groups Neurovascular: Radial pulse of the right upper extremity 2+ at this time. Cap refill under 3 seconds in digits of upper extremities. Special tests: Negative Homans bilaterally - Labs CBC & Chem 7: 04/25/22 22:23 04/25/22 06:08 Labs: Abnormal Lab Results - Last 24 Hours (Table) 04/25/22 04/25/22 04/25/22 Range/Units 10:26 10:52 11:04 RBC (4.30-5.90) m/uL Hgb (13.0-17.5) gm/dL Hct (39.0-53.0) % RDW (11.5-15.5) % Plt Count (150-450) k/uL Retic Count (0.5-2.0) % POC Glucose (mg/dL) 122 H 118 H (70-110) mg/dL Transferrin (204.0-354.0) mg/dL Troponin I 0.275 H* (0.000-0.034) ng/mL Crossmatch 04/25/22 04/25/22 04/25/22 Range/Units 11:51 11:51 11:51 RBC (4.30-5.90) m/uL Hgb (13.0-17.5) gm/dL Hct (39.0-53.0) % RDW (11.5-15.5) % Plt Count (150-450) k/uL Retic Count 3.4 H (0.5-2.0) % POC Glucose (mg/dL) (70-110) mg/dL Transferrin 194.0 L (204.0-354.0) mg/dL Troponin I (0.000-0.034) ng/mL Crossmatch See Detail 04/25/22 Range/Units 22:23 RBC 2.41 L (4.30-5.90) m/uL Hgb 8.1 L (13.0-17.5) gm/dL Hct 23.9 L (39.0-53.0) % RDW 23.7 H (11.5-15.5) % Plt Count 19 L* (150-450) k/uL Retic Count (0.5-2.0) % POC Glucose (mg/dL) (70-110) mg/dL Transferrin (204.0-354.0) mg/dL Troponin I (0.000-0.034) ng/mL Crossmatch Assessment and Plan Assessment: 1. right AC joint pain 2. multiple medical comorbidities Plan: 1. Right AC joint pain - patient was seen at bedside this morning. Physical exam of right shoulder presented with pain out of proportion to exam especially over AC joint. Patient denies any traumas/falls. Does have port in right side chest. Last chemo treatment 1 week ago. xray righrt shoulder reviewed with my attending, Dr. Sheridan. Negative for any fractures, dislocations, significant arthritis. CT right shoulder shows osteoarthritis and spurring of AC joint. At this time we are not recommending any emergent/urgent orthopedic surgical intervention. Patient has not had any previous shoulder surgeries. Uric acid level 3.6 WNL. At this time we are recommending intervention of right shoulder pain via the use of IV steroids and pain medication. Order for arm sling has been placed. Decadron 6 mg q6h ordered. We will continue to follow patient while in hospital 2. Appreciate medical, oncology management 3. Pain management - Martin 4. DVT ppx - Aspirin 5. GI ppx - Protonix 6. PT/OT - NWB RUE; use arm sling 7. Appreciate consult Time with Patient: Less than 30
[2022-04-26] MEDS ORDERED: FAMOTIDINE 20 MG TAB PO SCH (09:00)
[2022-04-26 09:20] LABS: African American GFR (CKD) >90 (>60 ml/min/1.73 sqM); Anion Gap 7 mmol/L; Blood Urea Nitrogen 8 mg/dL (9-20); Calcium 7.8 mg/dL (8.4-10.2); Carbon Dioxide 22 mmol/L (22-30); Chloride 98 mmol/L (98-107); Glucose 123 mg/dL (74-99); Magnesium 1.8 mg/dL (1.6-2.3); Non-African American GFR(CKD) >90 (>60 ml/min/1.73 sqM); Potassium 3.4 mmol/L (3.5-5.1); Sodium 127 mmol/L (137-145)
--- NOTE | 2022-04-26 11:11 | P.PN ---
Subjective Progress Note Date: 04/26/22 61-year-old male patient with known history of metastatic lung cancer, exact histology is not known. The patient received his treatment through [facility]. The patient was diagnosed having a left upper lobe mass, metastatic to the brain and the patient underwent a craniotomy and resection of the brain tumor and following that he received radiation therapy. Subsequently he received accommodation chemo therapy and possibly radiation therapy to the chest. He was also found to have an abnormal lesion in his esophagus, unknown whether this primary esophageal cancer versus metastatic lesion. The patient was given radiation therapy and the patient was subsequently started on immunoth erapy with Keytruda every 3 weeks. He got his first injection of Keytruda few weeks back. The patient woke up because of severe excruciating pain in his right shoulder and he was unable to move his shoulder at all. The pain was quite severe.. Very limited range of motion. No trauma. No falls. He also reported some radiation of the pain across his upper chest area. Note that the patient is a Port-A-Cath catheter inserted and the catheter itself seemed to be functional. The catheter was inserted approximately a year ago. He comes into the emergency department. Chest x-ray shows a left upper lobe consolidation at the site of the previously known tumor probably radiation site. The patient also has a right-sided Port-A-Cath in place. The patient had an EKG that showed normal sinus rhythm. No acute abnormalities. X-ray of the shoulder showed no evidence of fracture-dislocation. The patient was given morphine and Dilaudid and [place] for pain control. Orthopedic surgery evaluated the patient and they think this may be a gouty attack. Meanwhile, the patient had a white cell count of 5.2 with hemoglobin of 6.8 and a platelet count of 19 and this is a drop compared to yesterday. The patient has a sodium level of 128, potassium of 3.8, BUN of 10 and creatinine 0.6 and troponins are 0.01 and 0.275 respectively 2. ProBNP level is 353. UA was negative. The patient a chance to the intensive care unit as the patient was having severe pain and he also developed a bout of SVT and he converted to sinus mechanism and is back into sinus. Patient was seen by cardiology. He will be having an echocardiogram. Will be continuing his beta jd 04/26/2022 the patient is still having issues with pain of the right shoulder. The patient is also on 5 L about 2 by nasal cannula. CAT scan of the shoulder showed osteoarthritis. CT angiogram of the chest was done that showed no evidence of any pulmonary embolism. There was some bullous emphysema and there is also extensive coarse interstitial and airspace infiltrates in the mid and lower lung lambert bilaterally and in the left suprahilar area. There is no evidence of any pulmonary embolism. Based on that, the patient was started on broad-spectrum antibiotics and the patient is currently on a combination of cefepime and vancomycin. 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 Patient was started on steroids today. Sodium level is at 127 with a mean of 8 and a creatinine of 0.4. Pulse ox is 96% 5 L about 2 by nasal cannula. Breathing is nonlabored. Objective - Vital Signs Vital signs: Vital Signs Temp 97.7 F 04/26/22 08:36 Pulse 77 04/26/22 08:36 Resp 20 04/26/22 08:36 BP 112/60 04/26/22 08:36 Pulse Ox 96 04/26/22 08:36 FiO2 Intake & Output 04/25/22 04/26/22 04/26/22 18:59 06:59 18:59 Intake Total 1010 300 118 Output Total 400 950 300 Balance 610 -650 -182 Intake: Intake, IV Titration 700 300 Amount Magnesium Sulfate-D5w Pmx 100 200 1 gm In Dextrose/Water 1 100ml.bag @ 100 mls/hr IVPB Q1H [facility] Rx#: [id number] Sodium Chloride 0.9% 1, 100 100 000 ml @ 100 mls/hr IV . Q10H [facility] Rx#:[id number] Sodium Chloride 0.9% 500 500 ml 500 ml @ 999 mls/hr IV .Q31M [facility] Rx#:[id number] Oral 118 Blood Product 310 Rc Irr As1 Unit 310 [id number] Output: Urine 400 950 300 Other: Voiding Method Urinal Urinal Bedside Commode Urinal - Exam GENERAL: The patient is alert and oriented x3, not in any acute distress. Well developed, well nourished. The patient is breathing is nonlabored and the patient is currently on 5 L O2 nasal cannula with pulse ox of 96% Head exam was generally normal. There was no scleral icterus or corneal arcus. Mucous membranes were moist. HEENT: Pupils are round and equally reacting to light. EOMI. No scleral icterus. No conjunctival pallor. Normocephalic, atraumatic. No pharyngeal erythema. No thyromegaly. CARDIOVASCULAR: S1 and S2 present. No murmurs, rubs, or gallops. -PULMONARY: Chest is clear to auscultation, no wheezing or crackles. Right upper chest port with no erythema or cellulitis around it but significant tenderness, also tenderness around the right shoulder. No neck tenderness. ABDOMEN: Soft, nontender, nondistended, normoactive bowel sounds. No palpable organomegaly. MUSCULOSKELETAL: No joint swelling or deformity. Moderate limitation in range of motion of the right shoulder due to severe pain. Unable to move shoulder at all. Adequate pulses in the right upper extremity. EXTREMITIES: No cyanosis, clubbing, or pedal edema. NEUROLOGICAL: Gross neurological examination did not reveal any focal deficits. SKIN: No rashes. No petechiae. The patient has a Port-A-Cath in the right chest and exit site is dry clean and intact. - Labs CBC & Chem 7: 04/25/22 22:23 04/26/22 08:42 Labs: Abnormal Lab Results - Last 24 Hours (Table) 04/25/22 04/25/22 04/25/22 Range/Units 10:26 11:51 11:51 RBC (4.30-5.90) m/uL Hgb (13.0-17.5) gm/dL Hct (39.0-53.0) % RDW (11.5-15.5) % Plt Count (150-450) k/uL Retic Count 3.4 H (0.5-2.0) % Sodium (137-145) mmol/L Potassium (3.5-5.1) mmol/L BUN (9-20) mg/dL Creatinine (0.66-1.25) mg/dL Glucose (74-99) mg/dL Calcium (8.4-10.2) mg/dL Transferrin 194.0 L (204.0-354.0) mg/dL Troponin I 0.275 H* (0.000-0.034) ng/mL Crossmatch 04/25/22 04/25/22 04/26/22 Range/Units 11:51 22:23 08:42 RBC 2.41 L (4.30-5.90) m/uL Hgb 8.1 L (13.0-17.5) gm/dL Hct 23.9 L (39.0-53.0) % RDW 23.7 H (11.5-15.5) % Plt Count 19 L* (150-450) k/uL Retic Count (0.5-2.0) % Sodium 127 L (137-145) mmol/L Potassium 3.4 L (3.5-5.1) mmol/L BUN 8 L (9-20) mg/dL Creatinine 0.45 L (0.66-1.25) mg/dL Glucose 123 H (74-99) mg/dL Calcium 7.8 L (8.4-10.2) mg/dL Transferrin (204.0-354.0) mg/dL Troponin I (0.000-0.034) ng/mL Crossmatch See Detail Assessment and Plan Plan: Metastatic stage IV lung cancer, post craniotomy and resection of a [employer]ACH[employer] QUALIFIED tumor followed by radiation therapy. The patient has also completed chemotherapy and currently he is on a Keytruda/immunotherapy. Left upper lobe/suprahilar opacity, at a setting of previously known lung cancer. Doubt pneumonia Bilateral interstitial and alveolar infiltrates involving the lung bases in the left suprahilar area. Rule out radiation pneumonitis. Rule out interstitial lung disease related to immunotherapy. Esophageal cancer postradiation therapy Acute right shoulder pain with marked limitation of range of motion. Currently under investigation. No evidence of fracture or dislocation. Doppler of the right upper extremity was negative for DVTs, CAT scan of the shoulder shows no evidence of any fractures or dislocation or any metastases. Anemia/thrombocytopenia SVT, recovered and the patient's cardiac rhythm is sinus Troponin leak secondary to above COPD with bilateral emphysematous changes on previous CAT scans and PET CTs. Acid reflux Hypertension Osteoarthritis Previous history of seizures, currently inactive in stable Plan Start the patient IV Solu-Medrol and the patient will be started a dose of 60 mg IV every 6 hours Continue same antibiotic coverage with cefepime and vancomycin Titrate oxygen to maintain saturation above 90% Orthopedic surgery regarding the shoulder pain IV fluids will be kept on 2 20 mL an hour Echo of the heart was within normal limits. Orthopedic surgery regarding right shoulder pain We'll continue to follow
[2022-04-26 11:16] LABS: Anisocytosis Moderate; HCT 22.9 % (39.0-53.0); HGB 7.6 gm/dL (13.0-17.5); MCHC 33.2 g/dL (31.0-37.0); MCV 99.6 fL (80.0-100.0); Macrocytosis Moderate; Mean Platelet Volume 9.3; RDW 23.3 % (11.5-15.5); WBC 5.3 k/uL (3.8-10.6)
[2022-04-26 11:20] LABS: Platelet Count 20 k/uL (150-450)
[2022-04-26] MEDS: PYRIDOXINE 50 MG TAB PO SCH (11:25)
--- NOTE | 2022-04-26 11:43 | P.PN ---
Subjective Progress Note Date: 04/26/22 PROGRESS NOTE The patient is a 61-year-old male with a known history of metastatic non-small cell CAD, status post radiation and chemotherapy, history of esophageal cancer who presented with right shoulder discomfort. He had an episode of SVT but subsequently converted back to sinus mechanism. He continues to have right shoulder discomfort but no chest discomfort. He continues to be in sinus mechanism. He has dyspnea and has been diagnosed with pneumonia and started on antibiotics. His echocardiogram showed a preserved systolic function with no significant valvular disease. He has no PND, orthopnea or significant peripheral edema. He received transfusion yesterday Medications: Lopressor 25 mg twice a day, Solu-Medrol, vancomycin PHYSICAL EXAMINATION: Blood pressure 112/69 heart rate 69 LUNGS: Few scattered crackles, post the cast noted on the right side HEART: Regular rate and rhythm, S1, S2. No S3. No systolic murmur ABDOMEN: Soft, nontender, no organomegaly, PEG tube in place EXTREMETIES: No edema LAB: Hemoglobin 7.6, potassium 3.4, BUN 8, creatinine 0.45 IMPRESSION: 1. Right shoulder discomfort, noncardiac 2. Stage IV metastatic lung cancer 3. Episode of SVT, resolved with mild elevation of troponin 4. Bicytopenia, post chemotherapy and immunotherapy 5. Possible pneumonia 6. History of esophageal cancer, post radiation PLAN: 1. Continue beta jd 2. Continue to hold aspirin until platelets count stabilize 3. Treatment of pneumonia per pulmonary service 4. Depending on his progress further recommendations will be made Objective - Vital Signs Vital signs: Vital Signs Temp 97.5 F L 04/26/22 11:05 Pulse 69 04/26/22 11:05 Resp 18 04/26/22 11:05 BP 112/69 04/26/22 11:05 Pulse Ox 95 04/26/22 11:05 FiO2 Intake & Output 04/25/22 04/26/22 04/26/22 18:59 06:59 18:59 Intake Total 1010 300 118 Output Total 400 950 300 Balance 602 -398 -369 Intake: Intake, IV Titration 700 300 Amount Magnesium Sulfate-D5w Pmx 100 200 1 gm In Dextrose/Water 1 100ml.bag @ 100 mls/hr IVPB Q1H [facility] Rx#: [id number] Sodium Chloride 0.9% 1, 100 100 000 ml @ 100 mls/hr IV . Q10H [facility] Rx#:[id number] Sodium Chloride 0.9% 500 500 ml 500 ml @ 999 mls/hr IV .Q31M [facility] Rx#:[id number] Oral 118 Blood Product 310 Rc Irr As1 Unit 310 [id number] Output: Urine 400 950 300 Other: Voiding Method Urinal Urinal Bedside Commode Urinal - Labs CBC & Chem 7: 04/26/22 08:42 04/26/22 08:42 Labs: Abnormal Lab Results - Last 24 Hours (Table) 04/25/22 04/25/22 04/25/22 Range/Units 11:51 11:51 11:51 RBC (4.30-5.90) m/uL Hgb (13.0-17.5) gm/dL Hct (39.0-53.0) % RDW (11.5-15.5) % Plt Count (150-450) k/uL Retic Count 3.4 H (0.5-2.0) % Sodium (137-145) mmol/L Potassium (3.5-5.1) mmol/L BUN (9-20) mg/dL Creatinine (0.66-1.25) mg/dL Glucose (74-99) mg/dL Calcium (8.4-10.2) mg/dL Transferrin 194.0 L (204.0-354.0) mg/dL Lactate Dehydrogenase (313-618) U/L Crossmatch See Detail 04/25/22 04/26/22 04/26/22 Range/Units 22:23 08:42 08:42 RBC 2.41 L (4.30-5.90) m/uL Hgb 8.1 L (13.0-17.5) gm/dL Hct 23.9 L (39.0-53.0) % RDW 23.7 H (11.5-15.5) % Plt Count 19 L* (150-450) k/uL Retic Count (0.5-2.0) % Sodium 127 L (137-145) mmol/L Potassium 3.4 L (3.5-5.1) mmol/L BUN 8 L (9-20) mg/dL Creatinine 0.45 L (0.66-1.25) mg/dL Glucose 123 H (74-99) mg/dL Calcium 7.8 L (8.4-10.2) mg/dL Transferrin (204.0-354.0) mg/dL Lactate Dehydrogenase 312 L (313-618) U/L Crossmatch 04/26/22 Range/Units 08:42 RBC 2.30 L (4.30-5.90) m/uL Hgb 7.6 L (13.0-17.5) gm/dL Hct 22.9 L (39.0-53.0) % RDW 23.3 H (11.5-15.5) % Plt Count (150-450) k/uL Retic Count (0.5-2.0) % Sodium (137-145) mmol/L Potassium (3.5-5.1) mmol/L BUN (9-20) mg/dL Creatinine (0.66-1.25) mg/dL Glucose (74-99) mg/dL Calcium (8.4-10.2) mg/dL Transferrin (204.0-354.0) mg/dL Lactate Dehydrogenase (313-618) U/L Crossmatch
[2022-04-26] MEDS ORDERED: DEXAMETHASONE SOD PHOSPHATE 4 MG/ML 1 ML VIAL IVP SCH (12:00)
[2022-04-26 12:24] LABS: Eosinophils # (M) 0.11 k/uL (0-0.7); Lymphocytes # (M) 0.74 k/uL (1.0-4.8); Monocytes # (M) 0.58 k/uL (0-1.0); Neutrophils # (M) 3.87 k/uL (1.3-7.7); Neutrophils % (M) 73 %; Nucleated Red Blood Cells 0 /100 WBC (0-0); Total Cells Counted 100
[2022-04-26 12:25] LABS: Mixed Population RBC Present; Poikilocytosis (M) Present
[2022-04-26] MEDS: POTASSIUM CHLORIDE ER 20 MEQ TAB.ER PO SCH ×2 (12:37→15:22)
[2022-04-26] MEDS: methylPREDNISolone SOD SUCCI 125 MG/2 ML VIAL IV SCH ×2 (12:37→17:54)
--- NOTE | 2022-04-26 14:51 | P.PN ---
Subjective Progress Note Date: 04/26/22 Principal diagnosis: Shoulder pain NSCLC on chemo-immunotherapy Chemotherapy induced cytopenias Infiltrates on CTA chest CT shoulder with arthritis and bone spur. No signs of met's. CTA with infiltrates, possibly due to PNA vs inflammatory from recent RT. Shoulder in sling, with significant pain still. Objective - Vital Signs Vital signs: Vital Signs Temp 97.7 F 04/26/22 08:36 Pulse 77 04/26/22 08:36 Resp 20 04/26/22 08:36 BP 112/60 04/26/22 08:36 Pulse Ox 96 04/26/22 08:36 FiO2 Intake & Output 04/25/22 04/26/22 04/26/22 18:59 06:59 18:59 Intake Total 1010 300 118 Output Total 400 950 300 Balance 610 650 182 Intake: Intake, IV Titration 700 300 Amount Magnesium Sulfate-D5w Pmx 100 200 1 gm In Dextrose/Water 1 100ml.bag @ 100 mls/hr IVPB Q1H [facility] Rx#: [id number] Sodium Chloride 0.9% 1, 100 100 000 ml @ 100 mls/hr IV . Q10H [facility] Rx#:[id number] Sodium Chloride 0.9% 500 500 ml 500 ml @ 999 mls/hr IV .Q31M [facility] Rx#:[id number] Oral 118 Blood Product 310 Rc Irr As1 Unit 310 [id number] Output: Urine 400 950 300 Other: Voiding Method Urinal Urinal - Exam Gen.: No acute distress. HEENT: Conjunctival pallor but no scleral icterus. Mucosa moist. Neck: Supple Lungs: No respiratory distress. Heart: Regular rate. Abdomen: Soft. MSK: Appropriate strength in all 4 extremities. Limited range of motion of the right shoulder. Neuro: Alert and oriented 3. Psych: Appropriate affect. Skin: No jaundice. - Labs CBC & Chem 7: 04/26/22 08:42 04/26/22 08:42 Labs: Abnormal Lab Results - Last 24 Hours (Table) 04/25/22 04/25/22 04/25/22 Range/Units 10:26 10:52 11:04 RBC (4.30-5.90) m/uL Hgb (13.0-17.5) gm/dL Hct (39.0-53.0) % RDW (11.5-15.5) % Plt Count (150-450) k/uL Retic Count (0.5-2.0) % Sodium (137-145) mmol/L Potassium (3.5-5.1) mmol/L BUN (9-20) mg/dL Creatinine (0.66-1.25) mg/dL Glucose (74-99) mg/dL POC Glucose (mg/dL) 122 H 118 H (70-110) mg/dL Calcium (8.4-10.2) mg/dL Transferrin (204.0-354.0) mg/dL Troponin I 0.275 H* (0.000-0.034) ng/mL Crossmatch 04/25/22 04/25/22 04/25/22 Range/Units 11:51 11:51 11:51 RBC (4.30-5.90) m/uL Hgb (13.0-17.5) gm/dL Hct (39.0-53.0) % RDW (11.5-15.5) % Plt Count (150-450) k/uL Retic Count 3.4 H (0.5-2.0) % Sodium (137-145) mmol/L Potassium (3.5-5.1) mmol/L BUN (9-20) mg/dL Creatinine (0.66-1.25) mg/dL Glucose (74-99) mg/dL POC Glucose (mg/dL) (70-110) mg/dL Calcium (8.4-10.2) mg/dL Transferrin 194.0 L (204.0-354.0) mg/dL Troponin I (0.000-0.034) ng/mL Crossmatch See Detail 04/25/22 04/26/22 Range/Units 22:23 08:42 RBC 2.41 L (4.30-5.90) m/uL Hgb 8.1 L (13.0-17.5) gm/dL Hct 23.9 L (39.0-53.0) % RDW 23.7 H (11.5-15.5) % Plt Count 19 L* (150-450) k/uL Retic Count (0.5-2.0) % Sodium 127 L (137-145) mmol/L Potassium 3.4 L (3.5-5.1) mmol/L BUN 8 L (9-20) mg/dL Creatinine 0.45 L (0.66-1.25) mg/dL Glucose 123 H (74-99) mg/dL POC Glucose (mg/dL) (70-110) mg/dL Calcium 7.8 L (8.4-10.2) mg/dL Transferrin (204.0-354.0) mg/dL Troponin I (0.000-0.034) ng/mL Crossmatch Assessment and Plan Assessment: 1. Shoulder pain, possibly due to shoulder bone spur and arthritis 2. NSCLC on chemo immunotherapy with carbo/taxol/keytruda, follows with Dr. Delaney 3. Chemotherapy induced bicytopenia, anemia and thrombocytopenia 4. Infiltrates on CT chest Plan: Mr. Mendoza is a very pleasant 61-year-old gentleman with a history of non-small cell lung cancer with brain metastases s/p RT to solitary lesion and esophageal met, follows with Dr. Delaney in [place], who is here for right shoulder pain. Workup so far reveals arthritis and bone spur. CT chest with infiltrates, negative for PE. He recently completed carbo/taxol followed by chemoRT with carbo/taxol, and had his first Keytruda immunotherapy a week ago. He currently has bicytopenia with low hemoglobin and platelets. Hemoglobin improved from 6.8-8.1 with transfusion. Platelets remained low at 19. This is due to chemotherapy. B12, folate, and iron panel are normal. Reticulocyte slightly elevated at 3.4%. We'll rule out hemolysis as well with haptoglobin and LDH. Otherwise supportive transfusion to maintain hemoglobin above 7 and platelets above 15. Orthopedics on board for his right shoulder pain and conservative management recommended. Agree with steroids, which could help with possible inflammatory changes in his lungs as well as shoulder pain. Cannot rule out immunotherapy mediated arthritis, however we tend to see >1 joint involved with this. Hold immunotherapy until pt is weaned off steroids and he follows up with Dr. Delaney. Once his pain is controlled he can be discharged and follow-up with Dr. Delaney to continue his lung cancer treatment. Of note, he mentions his mother recently passing away and her is Thursday AM, and would like to be able to attend this if possible. No objections to discharge from oncology stand point. Discussed with patient is agreeable to the plan. All of his questions were answered.
[2022-04-26 16:52] LABS: Glucose,Whole Blood 149 mg/dL (70-110)
--- NOTE | 2022-04-26 16:52 | P.PN ---
Subjective This is a pleasant 61 years old male with past medical history of lung cancer that he follows up with Dr. gonzalez from [facility], last chemotherapy was about one week ago. Also he has history of brain tumor and esophageal tumor which is been treated. Status post radiotherapy to the chest. Other chronic medical problems include GERD, hypertension, osteoarthritis, seizure disorder on antiseizure medication. He is saturating 96% on 3 L oxygen via nasal cannula Presents because of severe right shoulder pain and around his right upper chest and area of Port-A-Cath which started yesterday, pain is severe as like 10/10 without trauma. Right hip to little bit to the neck and the elbow exacerbated by movement. Associated with some shortness of breath and dry cough. No chest pain no headache or dizziness currently. No abdominal or urinary complaints today. He quit smoking and drinking about one year ago, no illicit drugs. He has PEG tube which he does not use currently, it was from the time off with treatment for his esophageal cancer, his planned to have an EGD on the of this month so it can be removed. Patient is afebrile, blood pressure on the low side 96/56, was 125/72 on admission., Heart rate was on 60s per minute, however this morning he developed an episode of tachycardia with EKG suspicious for SVT with a heart rate of 150/m. In reviewing the labs his hemoglobin around 8.2 yesterday, dropped down to 6.8 today. WBC 6.3 and 5.2. And platelet count 26 and 19 INR is 0.9. Sodium 134 and 128, rest of BMP and liver enzymes are unremarkable. Magnesium was low 1.3 which is been replaced. Troponin less than 0.012 and 0.2 which is elevated. ProBNP is 35 3, Chest x-ray showing left upper lung field consolidation with no pneumothorax. Right Port-A-Cath in the SVC EKG showing normal sinus rhythm at [address]-T changes and QTC 438. CT of the brain no acute intracranial abnormality Shoulder x-ray: No acute fracture or dislocation In the emergency room he received Dilaudid and 1 L of normal saline Several consultants are called on the case including orthopedic, radiotherapy, oncologist, med surg rn, credit control assistant. 7-12-17 Patient looks more comfortable today with the severe right shoulder pain His mildly tachypneic at rest with occasional coughing and he was been diagnosed with pneumonia after CAT scan of the chest done yesterday and he is currently on Zosyn and IV vancomycin. Rest of vitals and labs were stable except for sodium which is going down to 127. He has by cytopenia with hemoglobin 7.6 and platelet 20,000. Oxygen requirement down to 5 L/m. Ejection fraction 55-60%. Rawcalcitonin 0.18. Patient currently also started on some of the raw 60 mg while normal saline was stopped. Aspirin and heparin on hold for thrombocytopenia. We will do worked up for hyponatremia Regarding his right shoulder CT showing hypertrophic osteoarthritis of the glenohumeral joint with no fracture, steroid is recommended Objective - Vital Signs Vital signs: Vital Signs Temp 97.5 F L 04/26/22 11:05 Pulse 69 04/26/22 11:05 Resp 18 04/26/22 11:05 BP 112/69 04/26/22 11:05 Pulse Ox 95 04/26/22 11:05 FiO2 Intake & Output 04/25/22 04/26/22 04/26/22 18:59 06:59 18:59 Intake Total 1010 300 118 Output Total 400 950 300 Balance 610 -650 -182 Intake: Intake, IV Titration 700 300 Amount Magnesium Sulfate-D5w Pmx 100 200 1 gm In Dextrose/Water 1 100ml.bag @ 100 mls/hr IVPB Q1H [facility] Rx#: [id number] Sodium Chloride 0.9% 1, 100 100 000 ml @ 100 mls/hr IV . Q10H [facility] Rx#:[id number] Sodium Chloride 0.9% 500 500 ml 500 ml @ 999 mls/hr IV .Q31M [facility] Rx#:[id number] Oral 118 Blood Product 310 Rc Irr As1 Unit 310 [id number] Output: Urine 400 950 300 Other: Voiding Method Urinal Urinal Bedside Commode Urinal - Exam GENERAL: The patient is alert and oriented x3, not in any acute distress. Well developed, well nourished. HEENT: Pupils are round and equally reacting to light. EOMI. No scleral icterus. No conjunctival pallor. Normocephalic, atraumatic. No pharyngeal erythema. No thyromegaly. CARDIOVASCULAR: S1 and S2 present. No murmurs, rubs, or gallops. -PULMONARY: Chest is clear to auscultation, no wheezing or crackles. Bilateral crepitation scattered ABDOMEN: Soft, nontender, nondistended, normoactive bowel sounds. No palpable organomegaly. MUSCULOSKELETAL: No joint swelling or deformity. EXTREMITIES: No cyanosis, clubbing, or pedal edema. NEUROLOGICAL: Gross neurological examination did not reveal any focal deficits. SKIN: No rashes. no petechiae. - Labs CBC & Chem 7: 04/26/22 08:42 04/26/22 08:42 Labs: Abnormal Lab Results - Last 24 Hours (Table) 04/25/22 04/25/22 04/25/22 Range/Units 11:51 11:51 11:51 RBC (4.30-5.90) m/uL Hgb (13.0-17.5) gm/dL Hct (39.0-53.0) % RDW (11.5-15.5) % Plt Count (150-450) k/uL Retic Count 3.4 H (0.5-2.0) % Sodium (137-145) mmol/L Potassium (3.5-5.1) mmol/L BUN (9-20) mg/dL Creatinine (0.66-1.25) mg/dL Glucose (74-99) mg/dL Calcium (8.4-10.2) mg/dL Transferrin 194.0 L (204.0-354.0) mg/dL Lactate Dehydrogenase (313-618) U/L Procalcitonin (0.02-0.09) ng/mL Crossmatch See Detail 04/25/22 04/26/22 04/26/22 Range/Units 22:23 08:42 08:42 RBC 2.41 L (4.30-5.90) m/uL Hgb 8.1 L (13.0-17.5) gm/dL Hct 23.9 L (39.0-53.0) % RDW 23.7 H (11.5-15.5) % Plt Count 19 L* (150-450) k/uL Retic Count (0.5-2.0) % Sodium 127 L (137-145) mmol/L Potassium 3.4 L (3.5-5.1) mmol/L BUN 8 L (9-20) mg/dL Creatinine 0.45 L (0.66-1.25) mg/dL Glucose 123 H (74-99) mg/dL Calcium 7.8 L (8.4-10.2) mg/dL Transferrin (204.0-354.0) mg/dL Lactate Dehydrogenase (313-618) U/L Procalcitonin 0.18 H (0.02-0.09) ng/mL Crossmatch 04/26/22 04/26/22 Range/Units 08:42 08:42 RBC 2.30 L (4.30-5.90) m/uL Hgb 7.6 L (13.0-17.5) gm/dL Hct 22.9 L (39.0-53.0) % RDW 23.3 H (11.5-15.5) % Plt Count (150-450) k/uL Retic Count (0.5-2.0) % Sodium (137-145) mmol/L Potassium (3.5-5.1) mmol/L BUN (9-20) mg/dL Creatinine (0.66-1.25) mg/dL Glucose (74-99) mg/dL Calcium (8.4-10.2) mg/dL Transferrin (204.0-354.0) mg/dL Lactate Dehydrogenase 312 L (313-618) U/L Procalcitonin (0.02-0.09) ng/mL Crossmatch Assessment and Plan Assessment: Left upper lung cancer undergoing chemotherapy Episodes of supraventricular tachycardia Bicytopenia with anemia and thrombocytopenia, could be related to recent chemotherapy Elevated troponin, rule out cardiac causes History Of esophageal cancer and brain tumor History of GERD Hypertension History of posterior arthritis Plan: This is a pleasant 69 years old male with lung cancers and presents with left upper chest pain and SVT Continue with metoprolol IV fluids were held Continue with pain management. Dilaudid Follow-up recommendation by pulmonary and cardiology team. Also oncologist will evaluate the patient Orthopedic team consulted. Continue with antibiotic and saline withdrawal Check serum and urine osmolality and sodium Labs and medication were reviewed.. Continue same treatment. Continue with symptomatic treatment. Resume home medication. Monitor lytes and vitals. DVT and GI prophylaxis. Further recommendations depends on the clinical course of the patient DVT prophylaxis:No anticoagulation in view of severe thrombocytopenia and also anemias heparin GI Prophylaxis: Pepcid PT/OT:Deferred Prognosis is guarded Discussed with staff
[2022-04-26] MEDS: INSULIN ASPART (NovoLOG) 100 UNIT/ML VIAL SQ SCH ×2 (17:54→20:55)
[2022-04-26 20:17] LABS: Glucose,Whole Blood 180 mg/dL (70-110)
[2022-04-27] MEDS: HYDROmorphone 1 MG/ML 1 ML SYRINGE IVP PRN ×3 (00:50→15:58)
[2022-04-27] MEDS: methylPREDNISolone SOD SUCCI 125 MG/2 ML VIAL IV SCH ×4 (00:50→17:21)
[2022-04-27] MEDS: PIPERACILLIN-TAZOBACTAM 3.375 GM in SODIUM CHLORIDE 0.9% 100 ML IVPB SCH ×3 (00:51→15:59)
[2022-04-27] MEDS: VANCOMYCIN 1,500 MG in SODIUM CHLORIDE 0.9% 250 ML IVPB SCH ×3 (00:51→15:59)
[2022-04-27 06:16] LABS: Glucose,Whole Blood 179 mg/dL (70-110)
[2022-04-27] MEDS: SODIUM CHLORIDE 0.9% 1,000 ML IV SCH ×2 (06:56→21:06)
[2022-04-27] MEDS: INSULIN ASPART (NovoLOG) 100 UNIT/ML VIAL SQ SCH ×4 (06:57→21:02)
[2022-04-27] MEDS: PANTOPRAZOLE 40 MG TABLET PO SCH (06:57)
[2022-04-27] MEDS ORDERED: VANCOMYCIN TROUGH DUE 1 EACH MISC MISCELLANE ONE (07:00)
[2022-04-27 07:45] LABS: African American GFR (CKD) >90 (>60 ml/min/1.73 sqM); Anion Gap 6 mmol/L; Blood Urea Nitrogen 10 mg/dL (9-20); Calcium 8.2 mg/dL (8.4-10.2); Carbon Dioxide 22 mmol/L (22-30); Chloride 102 mmol/L (98-107); Glucose 150 mg/dL (74-99); Magnesium 1.7 mg/dL (1.6-2.3); Non-African American GFR(CKD) >90 (>60 ml/min/1.73 sqM); Potassium 3.5 mmol/L (3.5-5.1); Sodium 130 mmol/L (137-145)
[2022-04-27 07:46] LABS: Anisocytosis Moderate; Basophils % (A) 0 %; Eosinophils % (A) 0 %; HGB 7.2 gm/dL (13.0-17.5); Lymphocytes # (A) 0.7 k/uL (1.0-4.8); Lymphocytes % (A) 13 %; MCH 33.8 pg (25.0-35.0); MCHC 34.6 g/dL (31.0-37.0); Macrocytosis Moderate; Mean Platelet Volume 8.4; Monocytes # (A) 0.2 k/uL (0-1.0); Monocytes % (A) 4 %; Neutrophils # (A) 4.6 k/uL (1.3-7.7); Neutrophils % (A) 82 %; RBC 2.14 m/uL (4.30-5.90); RDW 23.7 % (11.5-15.5); WBC 5.6 k/uL (3.8-10.6)
[2022-04-27 07:59] LABS: Platelet Count 21 k/uL (150-450)
[2022-04-27] MEDS: MULTIVITAMINS, THERA 1 EACH TAB PO SCH (08:45)
[2022-04-27] MEDS: PYRIDOXINE 50 MG TAB PO SCH (08:45)
[2022-04-27] MEDS: METOPROLOL TARTRATE 25 MG TAB PO SCH ×2 (08:45→21:01)
[2022-04-27] MEDS: SERTRALINE 50 MG TAB PO SCH (08:45)
[2022-04-27] MEDS ORDERED: POTASSIUM CHLORIDE ER 20 MEQ TAB.ER PO STA (09:15)
[2022-04-27] MEDS ORDERED: MAGNESIUM SULFATE-D5W PMX 1 GM in DEXTROSE/WATER 1 100ML.BAG IVPB ONE (09:16)
--- NOTE | 2022-04-27 09:35 | P.PN ---
Subjective Progress Note Date: 04/27/22 Principal diagnosis: Right AC joint pain Patient was seen at bedside this morning resting, lying in semirecumbent position with sling on RUE. Patient says his right shoulder pain has been decreasing. Patient does feel that the sling has helped. Patient does say he has some radiation of pain into the neck on the right side as well as the right side of the chest. Patient denies change in vision, nausea, vomiting, loss of bowel/bladder control. Patient denies numbness or tingling in the digits of the upper extremities. Patient denies increasing chest pain/ increasing shortness of breath. Objective - Vital Signs Vital signs: Vital Signs Temp 97.7 F 04/27/22 08:38 Pulse 61 04/27/22 08:38 Resp 16 04/27/22 08:38 BP 129/74 04/27/22 08:38 Pulse Ox 94 L 04/27/22 08:38 FiO2 Intake & Output 04/26/22 04/27/22 04/27/22 18:59 06:59 18:59 Intake Total 858 358 Output Total 1090 1400 Balance -232 -1400 358 Intake: Oral 858 358 Output: Urine 1090 1400 Other: Voiding Method Bedside Commode Bedside Commode Urinal Urinal - Exam Negative for any open fractures, significant nodule/ecchymosis/erythema. AC joint prominence/swelling on right side. sling present on RUE Sensation: Sensation is equal, symmetric, bilaterally intact throughout the upper and lower extremities. Palpation: Moderate over right AC joint. Minimal TTP near port on the right side of the chest. . Diffuse tenderness to palpation throughout rest exam on right upper extremity. Nontender to palpation throughout rest exam Range of motion: Patient has full range of motion in bilateral lower extremities and left upper extremity. Patient does have full range of motion in digits of right upper extremity and in right wrist flexion/extension. Patient does have limited ROM in Right elbow flexion/extension and shoulder elevation, abduction, external/internal rotation due to pain. Motor: Right upper extremity exam limited due to patient's pain. [employer] strength on right upper extremity is 4/5. 5/5 in all other major motor groups Neurovascular: Radial pulse of the right upper extremity 2+ at this time. Cap refill under 3 seconds in digits of upper extremities. Special tests: Negative Homans bilaterally - Labs CBC & Chem 7: 04/27/22 07:12 04/27/22 07:12 Labs: Abnormal Lab Results - Last 24 Hours (Table) 04/25/22 04/26/22 04/26/22 Range/Units 06:08 08:42 08:42 RBC (4.30-5.90) m/uL Hgb (13.0-17.5) gm/dL Hct (39.0-53.0) % RDW (11.5-15.5) % Plt Count (150-450) k/uL Lymphocytes # (1.0-4.8) k/uL Lymphocytes # (Manual) (1.0-4.8) k/uL Haptoglobin (31.2-198.0) mg/dL Sodium (137-145) mmol/L Creatinine (0.66-1.25) mg/dL Glucose (74-99) mg/dL POC Glucose (mg/dL) (70-110) mg/dL Osmolality 268 L (280-301) mosm/kg Calcium (8.4-10.2) mg/dL Lactate Dehydrogenase 312 L (313-618) U/L Procalcitonin 0.18 H (0.02-0.09) ng/mL 04/26/22 04/26/22 04/26/22 Range/Units 08:42 08:42 16:42 RBC 2.30 L (4.30-5.90) m/uL Hgb 7.6 L (13.0-17.5) gm/dL Hct 22.9 L (39.0-53.0) % RDW 23.3 H (11.5-15.5) % Plt Count 20 L (150-450) k/uL Lymphocytes # (1.0-4.8) k/uL Lymphocytes # (Manual) 0.74 L (1.0-4.8) k/uL Haptoglobin 278.0 H (31.2-198.0) mg/dL Sodium (137-145) mmol/L Creatinine (0.66-1.25) mg/dL Glucose (74-99) mg/dL POC Glucose (mg/dL) 149 H (70-110) mg/dL Osmolality (280-301) mosm/kg Calcium (8.4-10.2) mg/dL Lactate Dehydrogenase (313-618) U/L Procalcitonin (0.02-0.09) ng/mL 04/26/22 04/27/22 04/27/22 Range/Units 20:16 06:14 07:12 RBC 2.14 L (4.30-5.90) m/uL Hgb 7.2 L (13.0-17.5) gm/dL Hct 21.0 L (39.0-53.0) % RDW 23.7 H (11.5-15.5) % Plt Count 21 L (150-450) k/uL Lymphocytes # 0.7 L (1.0-4.8) k/uL Lymphocytes # (Manual) (1.0-4.8) k/uL Haptoglobin (31.2-198.0) mg/dL Sodium (137-145) mmol/L Creatinine (0.66-1.25) mg/dL Glucose (74-99) mg/dL POC Glucose (mg/dL) 180 H 179 H (70-110) mg/dL Osmolality (280-301) mosm/kg Calcium (8.4-10.2) mg/dL Lactate Dehydrogenase (313-618) U/L Procalcitonin (0.02-0.09) ng/mL 04/27/22 Range/Units 07:12 RBC (4.30-5.90) m/uL Hgb (13.0-17.5) gm/dL Hct (39.0-53.0) % RDW (11.5-15.5) % Plt Count (150-450) k/uL Lymphocytes # (1.0-4.8) k/uL Lymphocytes # (Manual) (1.0-4.8) k/uL Haptoglobin (31.2-198.0) mg/dL Sodium 130 L (137-145) mmol/L Creatinine 0.43 L (0.66-1.25) mg/dL Glucose 150 H (74-99) mg/dL POC Glucose (mg/dL) (70-110) mg/dL Osmolality (280-301) mosm/kg Calcium 8.2 L (8.4-10.2) mg/dL Lactate Dehydrogenase (313-618) U/L Procalcitonin (0.02-0.09) ng/mL Microbiology - Last 24 Hours (Table) 04/25/22 12:08 Blood Culture - Preliminary Blood No Growth after 24 hours 04/25/22 11:51 Blood Culture - Preliminary Blood No Growth after 24 hours Assessment and Plan Assessment: 1. right AC joint pain 2. multiple medical comorbidities Plan: 1. Right AC joint pain - patient was seen at bedside this morning. Physical exam of right shoulder presented with pain out of proportion to exam especially over AC joint. Patient denies any traumas/falls. Does have port in right side chest. Last chemo treatment 1 week ago. xray right shoulder reviewed with my attending, Dr. Sheridan. Negative for any fractures, dislocations, significant arthritis. CT right shoulder shows osteoarthritis and spurring of AC joint. At this time we are not recommending any emergent/urgent orthopedic surgical intervention. Patient has not had any previous shoulder surgeries. Uric acid level 3.6 WNL. At this time we are recommending intervention of right shoulder pain via the use of IV steroids and pain medication. Patient currently using sling to RUE. Patient may remove sling and encouraged to flex/extend right elbow/wrist. Patient is orthopedically stable for discharge home. Recommend patient to follow-up in the outpatient setting with Dr. Sheridan in 2 weeks. We'll continue to be available during inpatient stay. 2. Appreciate medical, oncology management 3. Pain management - [place] 4. DVT ppx - Aspirin 5. GI ppx - Protonix 6. PT/OT - NWB RUE; sling to RUE 7. Appreciate consult Time with Patient: Less than 30
--- NOTE | 2022-04-27 11:30 | P.PN ---
Subjective Progress Note Date: 04/27/22 61-year-old male patient with known history of metastatic lung cancer, exact histology is not known. The patient received his treatment through [facility]. The patient was diagnosed having a left upper lobe mass, metastatic to the brain and the patient underwent a craniotomy and resection of the brain tumor and following that he received radiation therapy. Subsequently he received accommodation chemo therapy and possibly radiation therapy to the chest. He was also found to have an abnormal lesion in his esophagus, unknown whether this primary esophageal cancer versus metastatic lesion. The patient was given radiation therapy and the patient was subsequently started on immunoth erapy with Keytruda every 3 weeks. He got his first injection of Keytruda few weeks back. The patient woke up because of severe excruciating pain in his right shoulder and he was unable to move his shoulder at all. The pain was quite severe.. Very limited range of motion. No trauma. No falls. He also reported some radiation of the pain across his upper chest area. Note that the patient is a Port-A-Cath catheter inserted and the catheter itself seemed to be functional. The catheter was inserted approximately a year ago. He comes into the emergency department. Chest x-ray shows a left upper lobe consolidation at the site of the previously known tumor probably radiation site. The patient also has a right-sided Port-A-Cath in place. The patient had an EKG that showed normal sinus rhythm. No acute abnormalities. X-ray of the shoulder showed no evidence of fracture-dislocation. The patient was given morphine and Dilaudid and [place] for pain control. Orthopedic surgery evaluated the patient and they think this may be a gouty attack. Meanwhile, the patient had a white cell count of 5.2 with hemoglobin of 6.8 and a platelet count of 19 and this is a drop compared to yesterday. The patient has a sodium level of 128, potassium of 3.8, BUN of 10 and creatinine 0.6 and troponins are 0.01 and 0.275 respectively 2. ProBNP level is 353. UA was negative. The patient a chance to the intensive care unit as the patient was having severe pain and he also developed a bout of SVT and he converted to sinus mechanism and is back into sinus. Patient was seen by cardiology. He will be having an echocardiogram. Will be continuing his beta jd 04/26/2022 the patient is still having issues with pain of the right shoulder. The patient is also on 5 L about 2 by nasal cannula. CAT scan of the shoulder showed osteoarthritis. CT angiogram of the chest was done that showed no evidence of any pulmonary embolism. There was some bullous emphysema and there is also extensive coarse interstitial and airspace infiltrates in the mid and lower lung lambert bilaterally and in the left suprahilar area. There is no evidence of any pulmonary embolism. Based on that, the patient was started on broad-spectrum antibiotics and the patient is currently on a combination of cefepime and vancomycin. 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 Patient was started on steroids today. Sodium level is at 127 with a mean of 8 and a creatinine of 0.4. Pulse ox is 96% 5 L about 2 by nasal cannula. Breathing is nonlabored. 04/27/2022, the patient is feeling better. He remains on 5 L about 2 by nasal cannula. The pain across left chest and shoulder improved significantly and the patient is able to move his shoulder for now. He was started on steroids yesterday. He is also on a, history of vancomycin and Zosyn. Cultures are all negative thus far. In terms of his blood work, the patient was echo to 5.6 with a hemoglobin of 7.2, normal electrolytes, sodium level is at 130. Cultures are negative. Objective - Vital Signs Vital signs: Vital Signs Temp 97.7 F 04/27/22 08:38 Pulse 61 04/27/22 08:38 Resp 16 04/27/22 08:38 BP 129/74 04/27/22 08:38 Pulse Ox 94 L 04/27/22 08:38 FiO2 Intake & Output 04/26/22 04/27/22 04/27/22 18:59 06:59 18:59 Intake Total 858 358 Output Total 1090 1400 700 Balance -232 1400 -342 Intake: Oral 858 358 Output: Urine 1090 1400 700 Other: Voiding Method Bedside Commode Bedside Commode Bedside Commode Urinal Urinal Urinal - Exam GENERAL: The patient is alert and oriented x3, not in any acute distress. Well developed, well nourished. The patient is breathing is nonlabored and the patient is currently on 5 L O2 nasal cannula with pulse ox of 96% Head exam was generally normal. There was no scleral icterus or corneal arcus. Mucous membranes were moist. HEENT: Pupils are round and equally reacting to light. EOMI. No scleral icterus. No conjunctival pallor. Normocephalic, atraumatic. No pharyngeal erythema. No thyromegaly. CARDIOVASCULAR: S1 and S2 present. No murmurs, rubs, or gallops. -PULMONARY: Chest is clear to auscultation, no wheezing or crackles. Right upper chest port with no erythema or cellulitis around it but significant tenderness, also tenderness around the right shoulder. No neck tenderness. ABDOMEN: Soft, nontender, nondistended, normoactive bowel sounds. No palpable organomegaly. MUSCULOSKELETAL: No joint swelling or deformity. Moderate limitation in range of motion of the right shoulder due to severe pain. Unable to move shoulder at all. Adequate pulses in the right upper extremity. EXTREMITIES: No cyanosis, clubbing, or pedal edema. NEUROLOGICAL: Gross neurological examination did not reveal any focal deficits. SKIN: No rashes. No petechiae. The patient has a Port-A-Cath in the right chest and exit site is dry clean and intact. - Labs CBC & Chem 7: 04/27/22 07:12 04/27/22 07:12 Labs: Abnormal Lab Results - Last 24 Hours (Table) 04/25/22 04/26/22 04/26/22 Range/Units 06:08 08:42 08:42 RBC (4.30-5.90) m/uL Hgb (13.0-17.5) gm/dL Hct (39.0-53.0) % RDW (11.5-15.5) % Plt Count (150-450) k/uL Lymphocytes # (1.0-4.8) k/uL Lymphocytes # (Manual) (1.0-4.8) k/uL Haptoglobin 278.0 H (31.2-198.0) mg/dL Sodium (137-145) mmol/L Creatinine (0.66-1.25) mg/dL Glucose (74-99) mg/dL POC Glucose (mg/dL) (70-110) mg/dL Osmolality 268 L (280-301) mosm/kg Calcium (8.4-10.2) mg/dL Procalcitonin 0.18 H (0.02-0.09) ng/mL 04/26/22 04/26/22 04/26/22 Range/Units 08:42 16:42 20:16 RBC (4.30-5.90) m/uL Hgb (13.0-17.5) gm/dL Hct (39.0-53.0) % RDW (11.5-15.5) % Plt Count 20 L (150-450) k/uL Lymphocytes # (1.0-4.8) k/uL Lymphocytes # (Manual) 0.74 L (1.0-4.8) k/uL Haptoglobin (31.2-198.0) mg/dL Sodium (137-145) mmol/L Creatinine (0.66-1.25) mg/dL Glucose (74-99) mg/dL POC Glucose (mg/dL) 149 H 180 H (70-110) mg/dL Osmolality (280-301) mosm/kg Calcium (8.4-10.2) mg/dL Procalcitonin (0.02-0.09) ng/mL 04/27/22 04/27/22 04/27/22 Range/Units 06:14 07:12 07:12 RBC 2.14 L (4.30-5.90) m/uL Hgb 7.2 L (13.0-17.5) gm/dL Hct 21.0 L (39.0-53.0) % RDW 23.7 H (11.5-15.5) % Plt Count 21 L (150-450) k/uL Lymphocytes # 0.7 L (1.0-4.8) k/uL Lymphocytes # (Manual) (1.0-4.8) k/uL Haptoglobin (31.2-198.0) mg/dL Sodium 130 L (137-145) mmol/L Creatinine 0.43 L (0.66-1.25) mg/dL Glucose 150 H (74-99) mg/dL POC Glucose (mg/dL) 179 H (70-110) mg/dL Osmolality (280-301) mosm/kg Calcium 8.2 L (8.4-10.2) mg/dL Procalcitonin (0.02-0.09) ng/mL Microbiology - Last 24 Hours (Table) 04/25/22 12:08 Blood Culture - Preliminary Blood No Growth after 24 hours 04/25/22 11:51 Blood Culture - Preliminary Blood No Growth after 24 hours Assessment and Plan Plan: Metastatic stage IV lung cancer, post craniotomy and resection of a [employer] tumor followed by radiation therapy. The patient has also completed chemotherapy and currently he is on a Keytruda/immunotherapy. Left upper lobe/suprahilar opacity, at a setting of previously known lung cancer. Doubt pneumonia Bilateral interstitial and alveolar infiltrates involving the lung bases in the left suprahilar area. Rule out radiation pneumonitis. Rule out interstitial lung disease related to immunotherapy. Esophageal cancer postradiation therapy Acute right shoulder pain with marked limitation of range of motion. Currently under investigation. No evidence of fracture or dislocation. Doppler of the right upper extremity was negative for DVTs, CAT scan of the shoulder shows no evidence of any fractures or dislocation or any metastases. Anemia/thrombocytopenia SVT, recovered and the patient's cardiac rhythm is sinus Troponin leak secondary to above COPD with bilateral emphysematous changes on previous CAT scans and PET CTs. Acid reflux Hypertension Osteoarthritis Previous history of seizures, currently inactive in stable Plan Clinically improving Continue patient IV Solu-Medrol and the patient will be started a dose of 60 mg IV every 6 hours Continue same antibiotic coverage with cefepime and vancomycin May discontinue antibiotics with next 24 hours especially there is no indication for an underlying infection Titrate oxygen to maintain saturation above 90% Orthopedic surgery regarding the shoulder pain IV fluids at KVO Echo of the heart was within normal limits. Orthopedic surgery regarding right shoulder pain We'll continue to follow
[2022-04-27 12:00] LABS: Glucose,Whole Blood 131 mg/dL (70-110)
--- NOTE | 2022-04-27 12:49 | P.PN ---
Subjective Progress Note Date: 04/27/22 PROGRESS NOTE The patient is a 61-year-old male with a known history of metastatic non-small cell CAD, status post radiation and chemotherapy, history of esophageal cancer who presented with right shoulder discomfort. He had an episode of SVT but subsequently converted back to sinus mechanism. He continues to have right shoulder discomfort but no chest discomfort. He continues to be in sinus mechanism. He has dyspnea and has been diagnosed with pneumonia and started on antibiotics. His echocardiogram showed a preserved systolic function with no significant valvular disease. He has no PND, orthopnea or significant peripheral edema. He received transfusion yesterday April 27: He feels better today, he is receiving steroids, his shoulders feels better. He denies any palpitation or chest discomfort. No further episode of SVT. Hemodynamically he is stable. He denies any nausea or vomiting. Medications: Lopressor 25 mg twice a day, Solu-Medrol, vancomycin PHYSICAL EXAMINATION: Blood pressure 129/70 heart rate 61 LUNGS: Few scattered crackles, catheter noted on the right side HEART: Regular rate and rhythm, S1, S2. No S3. No systolic murmur ABDOMEN: Soft, nontender, no organomegaly, PEG tube in place EXTREMETIES: No edema LAB: Hemoglobin 7.2, potassium 3.5, BUN 10, creatinine 0.43, platelets 21,000 IMPRESSION: 1. Right shoulder discomfort, noncardiac 2. Stage IV metastatic lung cancer 3. Episode of SVT, resolved with mild elevation of troponin 4. Bicytopenia, post chemotherapy and immunotherapy 5. Possible pneumonia 6. History of esophageal cancer, post radiation PLAN: 1. Continue beta jd 2. Continue to hold aspirin until platelets count stabilize 3. Treatment of pneumonia per pulmonary service 4. We will see him on as-needed basis, please feel free to call us for any question. Objective - Vital Signs Vital signs: Vital Signs Temp 97.7 F 04/27/22 08:38 Pulse 61 04/27/22 08:38 Resp 16 04/27/22 08:38 BP 129/74 04/27/22 08:38 Pulse Ox 94 L 04/27/22 08:38 FiO2 Intake & Output 04/26/22 04/27/22 04/27/22 18:59 06:59 18:59 Intake Total 858 358 Output Total 1090 1400 700 Balance -232 1400 -342 Intake: Oral 858 358 Output: Urine 1090 1400 700 Other: Voiding Method Bedside Commode Bedside Commode Bedside Commode Urinal Urinal Urinal - Labs CBC & Chem 7: 04/27/22 07:12 04/27/22 07:12 Labs: Abnormal Lab Results - Last 24 Hours (Table) 04/25/22 04/26/22 04/26/22 Range/Units 06:08 08:42 16:42 RBC (4.30-5.90) m/uL Hgb (13.0-17.5) gm/dL Hct (39.0-53.0) % RDW (11.5-15.5) % Plt Count (150-450) k/uL Lymphocytes # (1.0-4.8) k/uL Haptoglobin 278.0 H (31.2-198.0) mg/dL Sodium (137-145) mmol/L Creatinine (0.66-1.25) mg/dL Glucose (74-99) mg/dL POC Glucose (mg/dL) 149 H (70-110) mg/dL Osmolality 268 L (280-301) mosm/kg Calcium (8.4-10.2) mg/dL Ur Random Sodium (40-220) mmol/L 04/26/22 04/26/22 04/27/22 Range/Units 18:00 20:16 06:14 RBC (4.30-5.90) m/uL Hgb (13.0-17.5) gm/dL Hct (39.0-53.0) % RDW (11.5-15.5) % Plt Count (150-450) k/uL Lymphocytes # (1.0-4.8) k/uL Haptoglobin (31.2-198.0) mg/dL Sodium (137-145) mmol/L Creatinine (0.66-1.25) mg/dL Glucose (74-99) mg/dL POC Glucose (mg/dL) 180 H 179 H (70-110) mg/dL Osmolality (280-301) mosm/kg Calcium (8.4-10.2) mg/dL Ur Random Sodium 29 L (40-220) mmol/L 04/27/22 04/27/22 04/27/22 Range/Units 07:12 07:12 11:52 RBC 2.14 L (4.30-5.90) m/uL Hgb 7.2 L (13.0-17.5) gm/dL Hct 21.0 L (39.0-53.0) % RDW 23.7 H (11.5-15.5) % Plt Count 21 L (150-450) k/uL Lymphocytes # 0.7 L (1.0-4.8) k/uL Haptoglobin (31.2-198.0) mg/dL Sodium 130 L (137-145) mmol/L Creatinine 0.43 L (0.66-1.25) mg/dL Glucose 150 H (74-99) mg/dL POC Glucose (mg/dL) 131 H (70-110) mg/dL Osmolality (280-301) mosm/kg Calcium 8.2 L (8.4-10.2) mg/dL Ur Random Sodium (40-220) mmol/L Microbiology - Last 24 Hours (Table) 04/25/22 12:08 Blood Culture - Preliminary Blood No Growth after 24 hours 04/25/22 11:51 Blood Culture - Preliminary Blood No Growth after 24 hours
[2022-04-27 16:47] LABS: Glucose,Whole Blood 153 mg/dL (70-110)
[2022-04-27 20:34] LABS: Glucose,Whole Blood 143 mg/dL (70-110)
[2022-04-27] MEDS: HYDROcodone/APAP 7.5-325MG 1 EACH TAB PO PRN (21:00)
[2022-04-27] MEDS ORDERED: HYDROmorphone 0.5 MG/0.5 ML SYRINGE IVP PRN (21:32)
--- NOTE | 2022-04-27 21:33 | P.PN ---
Subjective This is a pleasant 61 years old male with past medical history of lung cancer that he follows up with Dr. gonzalez from [facility], last chemotherapy was about one week ago. Also he has history of brain tumor and esophageal tumor which is been treated. Status post radiotherapy to the chest. Other chronic medical problems include GERD, hypertension, osteoarthritis, seizure disorder on antiseizure medication. He is saturating 96% on 3 L oxygen via nasal cannula Presents because of severe right shoulder pain and around his right upper chest and area of Port-A-Cath which started yesterday, pain is severe as like 10/10 without trauma. Right hip to little bit to the neck and the elbow exacerbated by movement. Associated with some shortness of breath and dry cough. No chest pain no headache or dizziness currently. No abdominal or urinary complaints today. He quit smoking and drinking about one year ago, no illicit drugs. He has PEG tube which he does not use currently, it was from the time off with treatment for his esophageal cancer, his planned to have an EGD on the of this month so it can be removed. Patient is afebrile, blood pressure on the low side 96/56, was 125/72 on admission., Heart rate was on 60s per minute, however this morning he developed an episode of tachycardia with EKG suspicious for SVT with a heart rate of 150/m. In reviewing the labs his hemoglobin around 8.2 yesterday, dropped down to 6.8 today. WBC 6.3 and 5.2. And platelet count 26 and 19 INR is 0.9. Sodium 134 and 128, rest of BMP and liver enzymes are unremarkable. Magnesium was low 1.3 which is been replaced. Troponin less than 0.012 and 0.2 which is elevated. ProBNP is 35 3, Chest x-ray showing left upper lung field consolidation with no pneumothorax. Right Port-A-Cath in the SVC EKG showing normal sinus rhythm at [address]-T changes and QTC 438. CT of the brain no acute intracranial abnormality Shoulder x-ray: No acute fracture or dislocation In the emergency room he received Dilaudid and 1 L of normal saline Several consultants are called on the case including orthopedic, radiotherapy, oncologist, steam shovel oiler, internal communications writer. 7-12-17 Patient looks more comfortable today with the severe right shoulder pain His mildly tachypneic at rest with occasional coughing and he was been diagnosed with pneumonia after CAT scan of the chest done yesterday and he is currently on Zosyn and IV vancomycin. Rest of vitals and labs were stable except for sodium which is going down to 127. He has by cytopenia with hemoglobin 7.6 and platelet 20,000. Oxygen requirement down to 5 L/m. Ejection fraction 55-60%. Rawcalcitonin 0.18. Patient currently also started on some of the raw 60 mg while normal saline was stopped. Aspirin and heparin on hold for thrombocytopenia. We will do worked up for hyponatremia Regarding his right shoulder CT showing hypertrophic osteoarthritis of the glenohumeral joint with no fracture, steroid is recommended 04/27/2022 Patient looks more calm, comfortable, his right shoulder pain is minimal, sling in place and he is continued on some Medrol 60 mg every 6 hours and pain managem ent. Breathing is better is quiet while at rest, he is saturating 92% on 5 L is a known case of lung cancer and there is suspicion of pneumonia. No leukocytosis, no fever and 4calcitonin is only 0.18, he remains on Zosyn and IV vancomycin, continue management per pulmonary team recommendation No more SVT, he is on metoprolol 25 mg and steam shovel oiler signed off. We will lower the dose of Dilaudid 1 mg down to 0.5 mg every 4 hours instead of 3 hours Objective - Vital Signs Vital signs: Vital Signs Temp 97.7 F 04/27/22 08:38 Pulse 61 04/27/22 08:38 Resp 16 04/27/22 08:38 BP 129/74 04/27/22 08:38 Pulse Ox 94 L 04/27/22 08:38 FiO2 Intake & Output 04/26/22 04/27/22 04/27/22 18:59 06:59 18:59 Intake Total 858 358 Output Total 1090 1400 Balance -232 -1400 358 Intake: Oral 858 358 Output: Urine 1090 1400 Other: Voiding Method Bedside Commode Bedside Commode Bedside Commode Urinal Urinal Urinal - Exam GENERAL: The patient is alert and oriented x3, not in any acute distress. Well developed, well nourished. HEENT: Pupils are round and equally reacting to light. EOMI. No scleral icterus. No conjunctival pallor. Normocephalic, atraumatic. No pharyngeal erythema. No thyromegaly. CARDIOVASCULAR: S1 and S2 present. No murmurs, rubs, or gallops. -PULMONARY: Chest is clear to auscultation, no wheezing or crackles. Bilateral crepitation scattered ABDOMEN: Soft, nontender, nondistended, normoactive bowel sounds. No palpable organomegaly. MUSCULOSKELETAL: No joint swelling or deformity. EXTREMITIES: No cyanosis, clubbing, or pedal edema. NEUROLOGICAL: Gross neurological examination did not reveal any focal deficits. SKIN: No rashes. no petechiae. - Labs CBC & Chem 7: 04/27/22 07:12 04/27/22 07:12 Labs: Abnormal Lab Results - Last 24 Hours (Table) 04/25/22 04/26/22 04/26/22 Range/Units 06:08 08:42 08:42 RBC (4.30-5.90) m/uL Hgb (13.0-17.5) gm/dL Hct (39.0-53.0) % RDW (11.5-15.5) % Plt Count (150-450) k/uL Lymphocytes # (1.0-4.8) k/uL Lymphocytes # (Manual) (1.0-4.8) k/uL Haptoglobin (31.2-198.0) mg/dL Sodium (137-145) mmol/L Creatinine (0.66-1.25) mg/dL Glucose (74-99) mg/dL POC Glucose (mg/dL) (70-110) mg/dL Osmolality 268 L (280-301) mosm/kg Calcium (8.4-10.2) mg/dL Lactate Dehydrogenase 312 L (313-618) U/L Procalcitonin 0.18 H (0.02-0.09) ng/mL 04/26/22 04/26/22 04/26/22 Range/Units 08:42 08:42 16:42 RBC 2.30 L (4.30-5.90) m/uL Hgb 7.6 L (13.0-17.5) gm/dL Hct 22.9 L (39.0-53.0) % RDW 23.3 H (11.5-15.5) % Plt Count 20 L (150-450) k/uL Lymphocytes # (1.0-4.8) k/uL Lymphocytes # (Manual) 0.74 L (1.0-4.8) k/uL Haptoglobin 278.0 H (31.2-198.0) mg/dL Sodium (137-145) mmol/L Creatinine (0.66-1.25) mg/dL Glucose (74-99) mg/dL POC Glucose (mg/dL) 149 H (70-110) mg/dL Osmolality (280-301) mosm/kg Calcium (8.4-10.2) mg/dL Lactate Dehydrogenase (313-618) U/L Procalcitonin (0.02-0.09) ng/mL 04/26/22 04/27/22 04/27/22 Range/Units 20:16 06:14 07:12 RBC 2.14 L (4.30-5.90) m/uL Hgb 7.2 L (13.0-17.5) gm/dL Hct 21.0 L (39.0-53.0) % RDW 23.7 H (11.5-15.5) % Plt Count 21 L (150-450) k/uL Lymphocytes # 0.7 L (1.0-4.8) k/uL Lymphocytes # (Manual) (1.0-4.8) k/uL Haptoglobin (31.2-198.0) mg/dL Sodium (137-145) mmol/L Creatinine (0.66-1.25) mg/dL Glucose (74-99) mg/dL POC Glucose (mg/dL) 180 H 179 H (70-110) mg/dL Osmolality (280-301) mosm/kg Calcium (8.4-10.2) mg/dL Lactate Dehydrogenase (313-618) U/L Procalcitonin (0.02-0.09) ng/mL 04/27/22 Range/Units 07:12 RBC (4.30-5.90) m/uL Hgb (13.0-17.5) gm/dL Hct (39.0-53.0) % RDW (11.5-15.5) % Plt Count (150-450) k/uL Lymphocytes # (1.0-4.8) k/uL Lymphocytes # (Manual) (1.0-4.8) k/uL Haptoglobin (31.2-198.0) mg/dL Sodium 130 L (137-145) mmol/L Creatinine 0.43 L (0.66-1.25) mg/dL Glucose 150 H (74-99) mg/dL POC Glucose (mg/dL) (70-110) mg/dL Osmolality (280-301) mosm/kg Calcium 8.2 L (8.4-10.2) mg/dL Lactate Dehydrogenase (313-618) U/L Procalcitonin (0.02-0.09) ng/mL Microbiology - Last 24 Hours (Table) 04/25/22 12:08 Blood Culture - Preliminary Blood No Growth after 24 hours 04/25/22 11:51 Blood Culture - Preliminary Blood No Growth after 24 hours Assessment and Plan Assessment: Left upper lung cancer undergoing chemotherapy Episodes of supraventricular tachycardia Bicytopenia with anemia and thrombocytopenia, could be related to recent chemotherapy Elevated troponin, rule out cardiac causes History Of esophageal cancer and brain tumor History of GERD Hypertension History of posterior arthritis Plan: This is a pleasant 69 years old male with lung cancers and presents with left upper chest pain and SVT Continue with metoprolol Continue with pain management. Dilaudid Follow-up recommendation by pulmonary and cardiology team. Also oncologist will evaluate the patient Orthopedic team consulted. Continue with antibiotic and saline withdrawal Check serum and urine osmolality and sodium Labs and medication were reviewed.. Continue same treatment. Continue with symptomatic treatment. Resume home medication. Monitor lytes and vitals. DVT and GI prophylaxis. Further recommendations depends on the clinical course of the patient DVT prophylaxis:No anticoagulation in view of severe thrombocytopenia and also anemias heparin GI Prophylaxis: Pepcid PT/OT:Deferred Prognosis is guarded Discussed with staff
[2022-04-28] MEDS: HYDROcodone/APAP 7.5-325MG 1 EACH TAB PO PRN ×4 (00:25→20:12)
[2022-04-28] MEDS: PIPERACILLIN-TAZOBACTAM 3.375 GM in SODIUM CHLORIDE 0.9% 100 ML IVPB SCH ×3 (00:25→16:49)
[2022-04-28] MEDS: methylPREDNISolone SOD SUCCI 125 MG/2 ML VIAL IV SCH ×4 (00:26→16:51)
[2022-04-28] MEDS: VANCOMYCIN 1,500 MG in SODIUM CHLORIDE 0.9% 250 ML IVPB SCH ×2 (00:26→10:41)
[2022-04-28] MEDS: PANTOPRAZOLE 40 MG TABLET PO SCH (05:14)
[2022-04-28 06:17] LABS: Glucose,Whole Blood 145 mg/dL (70-110)
[2022-04-28] MEDS: SODIUM CHLORIDE 0.9% 1,000 ML IV SCH ×2 (06:56→21:23)
[2022-04-28] MEDS: INSULIN ASPART (NovoLOG) 100 UNIT/ML VIAL SQ SCH ×4 (06:57→20:11)
--- NOTE | 2022-04-28 07:55 | XR ---
EXAMINATION TYPE: XR chest 1V DATE OF EXAM: 04/28/2022 6:30 AM COMPARISON: Chest radiograph from two days prior. TECHNIQUE: XR chest 1V Portable AP radiograph of the chest. CLINICAL INDICATION:Male, 61 years old with history of hypoxia , lung CANCER; FINDINGS: Lungs/Pleura: Scattered airspace opacities most pronounced in the left lung. No evidence pneumothorax . Trace left pleural effusion suspected. Pulmonary vascularity: Unremarkable. Heart/mediastinum: Cardiomediastinal silhouette is partially obscured due to overlying and adjacent o pacities. Musculoskeletal: Degenerative changes of the shoulder joints. Lines/Tubes: [id number] projecting over the right hemithorax with distal tip at the cavoatrial junction. IMPRESSION: Grossly similar radiograph exam given patient positioning with scattered airspace opacities within th e left lung
[2022-04-28 08:53] LABS: Anisocytosis Marked; MCHC 34.3 g/dL (31.0-37.0); MCV 99.4 fL (80.0-100.0); Macrocytosis Moderate; Mean Platelet Volume 9.7; RDW 24.5 % (11.5-15.5); WBC 3.7 k/uL (3.8-10.6)
[2022-04-28] MEDS: PYRIDOXINE 50 MG TAB PO SCH (08:54)
[2022-04-28] MEDS: SERTRALINE 50 MG TAB PO SCH (08:55)
[2022-04-28] MEDS: METOPROLOL TARTRATE 25 MG TAB PO SCH ×2 (08:55→20:13)
[2022-04-28] MEDS: MULTIVITAMINS, THERA 1 EACH TAB PO SCH (08:55)
[2022-04-28 09:01] LABS: HCT 19.8 % (39.0-53.0); HGB 6.8 gm/dL (13.0-17.5)
[2022-04-28 09:03] LABS: Platelet Count 19 k/uL (150-450)
[2022-04-28 09:05] LABS: African American GFR (CKD) >90 (>60 ml/min/1.73 sqM); Anion Gap 10 mmol/L; Blood Urea Nitrogen 16 mg/dL (9-20); Carbon Dioxide 23 mmol/L (22-30); Chloride 101 mmol/L (98-107); Glucose 171 mg/dL (74-99); Magnesium 1.8 mg/dL (1.6-2.3); Non-African American GFR(CKD) >90 (>60 ml/min/1.73 sqM); Potassium 3.2 mmol/L (3.5-5.1); Sodium 134 mmol/L (137-145)
[2022-04-28 12:03] LABS: Glucose,Whole Blood 155 mg/dL (70-110)
[2022-04-28] MEDS ORDERED: Potassium Replacement Protocol 1 EACH MISC MISCELLANE PRN ×2 (13:21→15:27)
[2022-04-28] MEDS ORDERED: MAGNESIUM SULFATE-D5W PMX 1 GM in DEXTROSE/WATER 1 100ML.BAG IVPB ONE (13:30)
--- NOTE | 2022-04-28 13:55 | P.PN ---
Subjective Progress Note Date: 04/28/22 61-year-old male patient with known history of metastatic lung cancer, exact histology is not known. The patient received his treatment through [facility]. The patient was diagnosed having a left upper lobe mass, metastatic to the brain and the patient underwent a craniotomy and resection of the brain tumor and following that he received radiation therapy. Subsequently he received accommodation chemo therapy and possibly radiation therapy to the chest. He was also found to have an abnormal lesion in his esophagus, unknown whether this primary esophageal cancer versus metastatic lesion. The patient was given radiation therapy and the patient was subsequently started on immunoth erapy with Keytruda every 3 weeks. He got his first injection of Keytruda few weeks back. The patient woke up because of severe excruciating pain in his right shoulder and he was unable to move his shoulder at all. The pain was quite severe.. Very limited range of motion. No trauma. No falls. He also reported some radiation of the pain across his upper chest area. Note that the patient is a Port-A-Cath catheter inserted and the catheter itself seemed to be functional. The catheter was inserted approximately a year ago. He comes into the emergency department. Chest x-ray shows a left upper lobe consolidation at the site of the previously known tumor probably radiation site. The patient also has a right-sided Port-A-Cath in place. The patient had an EKG that showed normal sinus rhythm. No acute abnormalities. X-ray of the shoulder showed no evidence of fracture-dislocation. The patient was given morphine and Dilaudid and [place] for pain control. Orthopedic surgery evaluated the patient and they think this may be a gouty attack. Meanwhile, the patient had a white cell count of 5.2 with hemoglobin of 6.8 and a platelet count of 19 and this is a drop compared to yesterday. The patient has a sodium level of 128, potassium of 3.8, BUN of 10 and creatinine 0.6 and troponins are 0.01 and 0.275 respectively 2. ProBNP level is 353. UA was negative. The patient a chance to the intensive care unit as the patient was having severe pain and he also developed a bout of SVT and he converted to sinus mechanism and is back into sinus. Patient was seen by cardiology. He will be having an echocardiogram. Will be continuing his beta jd 04/26/2022 the patient is still having issues with pain of the right shoulder. The patient is also on 5 L about 2 by nasal cannula. CAT scan of the shoulder showed osteoarthritis. CT angiogram of the chest was done that showed no evidence of any pulmonary embolism. There was some bullous emphysema and there is also extensive coarse interstitial and airspace infiltrates in the mid and lower lung lambert bilaterally and in the left suprahilar area. There is no evidence of any pulmonary embolism. Based on that, the patient was started on broad-spectrum antibiotics and the patient is currently on a combination of cefepime and vancomycin. 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 Patient was started on steroids today. Sodium level is at 127 with a mean of 8 and a creatinine of 0.4. Pulse ox is 96% 5 L about 2 by nasal cannula. Breathing is nonlabored. 04/27/2022, the patient is feeling better. He remains on 5 L about 2 by nasal cannula. The pain across left chest and shoulder improved significantly and the patient is able to move his shoulder for now. He was started on steroids yesterday. He is also on a, history of vancomycin and Zosyn. Cultures are all negative thus far. In terms of his blood work, the patient was echo to 5.6 with a hemoglobin of 7.2, normal electrolytes, sodium level is at 130. Cultures are negative. 04/28/2022, no new complaints and the patient remains oxygen dependent at 5 L O2 nasal cannula. Attempts to wean down the FiO2 failure the patient became profoundly hypoxic in the mid 80s. Currently is on 5 L. His breathing status is improved. Is also reporting improvement in the pain and the mobility in the right shoulder. Nevertheless, the patient has developed an acute anemia with a hemoglobin of 6.8 and is an acute drop in his hemoglobin on November is chronic anemia. The patient also has a white cell count 3.7 and a platelet count of 19. A repeat chest x-ray was done and the findings are essentially stable and unchanged with some scattered airspace opacities within the left lung and the site of previous radiation therapy. Objective - Vital Signs Vital signs: Vital Signs Temp 97.8 F 04/28/22 08:47 Pulse 58 L 04/28/22 12:00 Resp 18 04/28/22 12:00 BP 122/65 04/28/22 12:00 Pulse Ox 92 L 04/28/22 12:00 FiO2 Intake & Output 04/27/22 04/28/22 04/28/22 18:59 06:59 18:59 Intake Total 918 476 Output Total 700 1300 310 Balance 218 -1300 166 Intake: Oral 858 476 Other 60 Output: Urine 700 1300 310 Other: Voiding Method Toilet Toilet Toilet Urinal Urinal Urinal - Exam GENERAL: The patient is alert and oriented x3, not in any acute distress. Well developed, well nourished. The patient is breathing is nonlabored and the patient is currently on 5 L O2 nasal cannula with pulse ox of 96% Head exam was generally normal. There was no scleral icterus or corneal arcus. Mucous membranes were moist. HEENT: Pupils are round and equally reacting to light. EOMI. No scleral icterus. No conjunctival pallor. Normocephalic, atraumatic. No pharyngeal erythema. No thyromegaly. CARDIOVASCULAR: S1 and S2 present. No murmurs, rubs, or gallops. -PULMONARY: Chest is clear to auscultation, no wheezing or crackles. Right upper chest port with no erythema or cellulitis around it but significant tenderness, also tenderness around the right shoulder. No neck tenderness. ABDOMEN: Soft, nontender, nondistended, normoactive bowel sounds. No palpable organomegaly. MUSCULOSKELETAL: No joint swelling or deformity. Moderate limitation in range of motion of the right shoulder due to severe pain. Unable to move shoulder at all. Adequate pulses in the right upper extremity. EXTREMITIES: No cyanosis, clubbing, or pedal edema. NEUROLOGICAL: Gross neurological examination did not reveal any focal deficits. SKIN: No rashes. No petechiae. The patient has a Port-A-Cath in the right chest and exit site is dry clean and intact. - Labs CBC & Chem 7: 04/28/22 08:15 04/28/22 08:15 Labs: Abnormal Lab Results - Last 24 Hours (Table) 04/27/22 04/27/22 04/28/22 Range/Units 16:44 20:33 06:15 WBC (3.8-10.6) k/uL RBC (4.30-5.90) m/uL Hgb (13.0-17.5) gm/dL Hct (39.0-53.0) % RDW (11.5-15.5) % Plt Count (150-450) k/uL Sodium (137-145) mmol/L Potassium (3.5-5.1) mmol/L Creatinine (0.66-1.25) mg/dL Glucose (74-99) mg/dL POC Glucose (mg/dL) 153 H 143 H 145 H (70-110) mg/dL Calcium (8.4-10.2) mg/dL 04/28/22 04/28/22 04/28/22 Range/Units 08:15 08:15 12:02 WBC 3.7 L (3.8-10.6) k/uL RBC 2.00 L (4.30-5.90) m/uL Hgb 6.8 L* (13.0-17.5) gm/dL Hct 19.8 L* (39.0-53.0) % RDW 24.5 H (11.5-15.5) % Plt Count 19 L* (150-450) k/uL Sodium 134 L (137-145) mmol/L Potassium 3.2 L (3.5-5.1) mmol/L Creatinine 0.51 L (0.66-1.25) mg/dL Glucose 171 H (74-99) mg/dL POC Glucose (mg/dL) 155 H (70-110) mg/dL Calcium 8.0 L (8.4-10.2) mg/dL Microbiology - Last 24 Hours (Table) 04/25/22 12:08 Blood Culture - Preliminary Blood No Growth after 48 hours 04/25/22 11:51 Blood Culture - Preliminary Blood No Growth after 48 hours Assessment and Plan Plan: Metastatic stage IV lung cancer, post craniotomy and resection of a SUPERVISOR FINISHING tumor followed by radiation therapy. The patient has also completed chemotherapy and currently he is on a Keytruda/immunotherapy. Left upper lobe/suprahilar opacity, at a setting of previously known lung cancer. Doubt pneumonia Bilateral interstitial and alveolar infiltrates involving the lung bases in the left suprahilar area. Rule out radiation pneumonitis. Rule out interstitial lung disease related to immunotherapy. Esophageal cancer postradiation therapy Acute right shoulder pain with marked limitation of range of motion. Currently under investigation. No evidence of fracture or dislocation. Doppler of the right upper extremity was negative for DVTs, CAT scan of the shoulder shows no evidence of any fractures or dislocation or any metastases. Anemia/thrombocytopenia SVT, recovered and the patient's cardiac rhythm is sinus Troponin leak secondary to above COPD with bilateral emphysematous changes on previous CAT scans and PET CTs. Acid reflux Hypertension Osteoarthritis Previous history of seizures, currently inactive in stable Plan My overall impression is that the patient is suffering some side effects related to immunotherapy. He came in to us with some patchy pulmonary infiltrates could be related to immunotherapy induced pneumonitis in addition to hypoxic respiratory failure, acute joint disease, acute hematologic profile abnormal ities with a drop in the white count, hemoglobin and platelet count. Clinically the patient is improving on IV Solu-Medrol. Clinically improving Continue patient IV Solu-Medrol and the patient will be started a dose of 60 mg IV every 6 hours Continue same antibiotic coverage with cefepime and discontinue the vancomycin Titrate oxygen to maintain saturation above 90% Orthopedic surgery regarding the shoulder pain IV fluids at KVO Echo of the heart was within normal limits. Orthopedic surgery regarding right shoulder pain We'll continue to follow Would like to coordinate his care with his oncologist out of [place]
--- NOTE | 2022-04-28 16:08 | P.PN ---
Subjective This is a pleasant 61 years old male with past medical history of lung cancer that he follows up with Dr. gonzalez from [facility], last chemotherapy was about one week ago. Also he has history of brain tumor and esophageal tumor which is been treated. Status post radiotherapy to the chest. Other chronic medical problems include GERD, hypertension, osteoarthritis, seizure disorder on antiseizure medication. He is saturating 96% on 3 L oxygen via nasal cannula Presents because of severe right shoulder pain and around his right upper chest and area of Port-A-Cath which started yesterday, pain is severe as like 10/10 without trauma. Right hip to little bit to the neck and the elbow exacerbated by movement. Associated with some shortness of breath and dry cough. No chest pain no headache or dizziness currently. No abdominal or urinary complaints today. He quit smoking and drinking about one year ago, no illicit drugs. He has PEG tube which he does not use currently, it was from the time off with treatment for his esophageal cancer, his planned to have an EGD on the of this month so it can be removed. Patient is afebrile, blood pressure on the low side 96/56, was 125/72 on admission., Heart rate was on 60s per minute, however this morning he developed an episode of tachycardia with EKG suspicious for SVT with a heart rate of 150/m. In reviewing the labs his hemoglobin around 8.2 yesterday, dropped down to 6.8 today. WBC 6.3 and 5.2. And platelet count 26 and 19 INR is 0.9. Sodium 134 and 128, rest of BMP and liver enzymes are unremarkable. Magnesium was low 1.3 which is been replaced. Troponin less than 0.012 and 0.2 which is elevated. ProBNP is 35 3, Chest x-ray showing left upper lung field consolidation with no pneumothorax. Right Port-A-Cath in the SVC EKG showing normal sinus rhythm at [address]-T changes and QTC 438. CT of the brain no acute intracranial abnormality Shoulder x-ray: No acute fracture or dislocation In the emergency room he received Dilaudid and 1 L of normal saline Several consultants are called on the case including orthopedic, radiotherapy, oncologist, copy clerk, power crane operator. 7-12-17 Patient looks more comfortable today with the severe right shoulder pain His mildly tachypneic at rest with occasional coughing and he was been diagnosed with pneumonia after CAT scan of the chest done yesterday and he is currently on Zosyn and IV vancomycin. Rest of vitals and labs were stable except for sodium which is going down to 127. He has by cytopenia with hemoglobin 7.6 and platelet 20,000. Oxygen requirement down to 5 L/m. Ejection fraction 55-60%. Rawcalcitonin 0.18. Patient currently also started on some of the raw 60 mg while normal saline was stopped. Aspirin and heparin on hold for thrombocytopenia. We will do worked up for hyponatremia Regarding his right shoulder CT showing hypertrophic osteoarthritis of the glenohumeral joint with no fracture, steroid is recommended 04/27/2022 Patient looks more calm, comfortable, his right shoulder pain is minimal, sling in place and he is continued on some Medrol 60 mg every 6 hours and pain managem ent. Breathing is better is quiet while at rest, he is saturating 92% on 5 L is a known case of lung cancer and there is suspicion of pneumonia. No leukocytosis, no fever and 4calcitonin is only 0.18, he remains on Zosyn and IV vancomycin, continue management per pulmonary team recommendation No more SVT, he is on metoprolol 25 mg and copy clerk signed off. We will lower the dose of Dilaudid 1 mg down to 0.5 mg every 4 hours instead of 3 hours 04/27/2022 Patient does not look septic however his with patchy pneumonitis with some respiratory symptoms and hypoxia. 4calcitonin 0.18. He remains on 4-5 L of oxygen via nasal cannula Today he has pancytopenia with hemoglobin 6.8 receiving irradiated blood transfusion per radiologist. Sodium improving more than 150. He remains on Zosyn but vancomycin was discontinued and also kept on IV Solu- Medrol Objective - Vital Signs Vital signs: Vital Signs Temp 97.8 F 04/28/22 08:47 Pulse 60 04/28/22 08:47 Resp 18 04/28/22 08:47 BP 134/69 04/28/22 08:47 Pulse Ox 81 L 04/28/22 08:50 FiO2 Intake & Output 04/27/22 04/28/22 04/28/22 18:59 06:59 18:59 Intake Total 918 476 Output Total 700 1300 Balance 218 -1300 476 Intake: Oral 858 476 Other 60 Output: Urine 700 1300 Other: Voiding Method Toilet Toilet Urinal Urinal - Exam GENERAL: The patient is alert and oriented x3, not in any acute distress. Well developed, well nourished. HEENT: Pupils are round and equally reacting to light. EOMI. No scleral icterus. No conjunctival pallor. Normocephalic, atraumatic. No pharyngeal erythema. No thyromegaly. CARDIOVASCULAR: S1 and S2 present. No murmurs, rubs, or gallops. -PULMONARY: Chest is clear to auscultation, no wheezing or crackles. Bilateral crepitation scattered ABDOMEN: Soft, nontender, nondistended, normoactive bowel sounds. No palpable organomegaly. MUSCULOSKELETAL: No joint swelling or deformity. EXTREMITIES: No cyanosis, clubbing, or pedal edema. NEUROLOGICAL: Gross neurological examination did not reveal any focal deficits. SKIN: No rashes. no petechiae. - Labs CBC & Chem 7: 04/28/22 08:15 04/28/22 08:15 Labs: Abnormal Lab Results - Last 24 Hours (Table) 04/26/22 04/27/22 04/27/22 Range/Units 18:00 11:52 16:44 WBC (3.8-10.6) k/uL RBC (4.30-5.90) m/uL Hgb (13.0-17.5) gm/dL Hct (39.0-53.0) % RDW (11.5-15.5) % Plt Count (150-450) k/uL Sodium (137-145) mmol/L Potassium (3.5-5.1) mmol/L Creatinine (0.66-1.25) mg/dL Glucose (74-99) mg/dL POC Glucose (mg/dL) 131 H 153 H (70-110) mg/dL Calcium (8.4-10.2) mg/dL Ur Random Sodium 29 L (40-220) mmol/L 04/27/22 04/28/22 04/28/22 Range/Units 20:33 06:15 08:15 WBC 3.7 L (3.8-10.6) k/uL RBC 2.00 L (4.30-5.90) m/uL Hgb 6.8 L* (13.0-17.5) gm/dL Hct 19.8 L* (39.0-53.0) % RDW 24.5 H (11.5-15.5) % Plt Count 19 L* (150-450) k/uL Sodium (137-145) mmol/L Potassium (3.5-5.1) mmol/L Creatinine (0.66-1.25) mg/dL Glucose (74-99) mg/dL POC Glucose (mg/dL) 143 H 145 H (70-110) mg/dL Calcium (8.4-10.2) mg/dL Ur Random Sodium (40-220) mmol/L 04/28/22 Range/Units 08:15 WBC (3.8-10.6) k/uL RBC (4.30-5.90) m/uL Hgb (13.0-17.5) gm/dL Hct (39.0-53.0) % RDW (11.5-15.5) % Plt Count (150-450) k/uL Sodium 134 L (137-145) mmol/L Potassium 3.2 L (3.5-5.1) mmol/L Creatinine 0.51 L (0.66-1.25) mg/dL Glucose 171 H (74-99) mg/dL POC Glucose (mg/dL) (70-110) mg/dL Calcium 8.0 L (8.4-10.2) mg/dL Ur Random Sodium (40-220) mmol/L Microbiology - Last 24 Hours (Table) 04/25/22 12:08 Blood Culture - Preliminary Blood No Growth after 48 hours 04/25/22 11:51 Blood Culture - Preliminary Blood No Growth after 48 hours Assessment and Plan Assessment: Left upper lung cancer undergoing chemotherapy 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 A slightly Episodes of supraventricular tachycardia Bicytopenia with anemia and thrombocytopenia, could be related to recent chemotherapy History Of esophageal cancer and brain tumor History of GERD Hypertension History of posterior arthritis Plan: This is a pleasant 69 years old male with lung cancers and presents with left upper chest pain and SVT Continue with metoprolol Continue with pain management. Dilaudid Follow-up recommendation by pulmonary and cardiology team. Also oncologist will evaluate the patient Orthopedic team consulted. Continue with antibiotic with Zosyn only Continue with IV submental Labs and medication were reviewed.. Continue same treatment. Continue with symptomatic treatment. Resume home medication. Monitor lytes and vitals. DVT and GI prophylaxis. Further recommendations depends on the clinical course of the patient DVT prophylaxis:No anticoagulation in view of severe thrombocytopenia and also anemias heparin GI Prophylaxis: Pepcid PT/OT:Deferred Prognosis is guarded Discussed with staff
[2022-04-28 16:34] LABS: Glucose,Whole Blood 114 mg/dL (70-110)
[2022-04-28] MEDS: POTASSIUM CHLORIDE ER 20 MEQ TAB.ER PO SCH ×2 (16:51→18:00)
[2022-04-28 20:10] LABS: Glucose,Whole Blood 142 mg/dL (70-110)
[2022-04-29] MEDS: HYDROcodone/APAP 7.5-325MG 1 EACH TAB PO PRN ×5 (00:25→23:59)
[2022-04-29] MEDS: PIPERACILLIN-TAZOBACTAM 3.375 GM in SODIUM CHLORIDE 0.9% 100 ML IVPB SCH ×4 (00:25→23:58)
[2022-04-29] MEDS: methylPREDNISolone SOD SUCCI 125 MG/2 ML VIAL IV SCH ×6 (00:26→23:58)
[2022-04-29] MEDS: SODIUM CHLORIDE 0.9% 1,000 ML IV SCH ×2 (05:37→16:17)
[2022-04-29 06:11] LABS: Glucose,Whole Blood 120 mg/dL (70-110)
[2022-04-29] MEDS: INSULIN ASPART (NovoLOG) 100 UNIT/ML VIAL SQ SCH ×4 (06:54→20:35)
[2022-04-29] MEDS: PANTOPRAZOLE 40 MG TABLET PO SCH (06:57)
[2022-04-29 07:48] LABS: ALT 61 U/L (4-49); AST 44 U/L (17-59); African American GFR (CKD) >90 (>60 ml/min/1.73 sqM); Albumin 2.7 g/dL (3.5-5.0); Alkaline Phosphatase 121 U/L (38-126); Anion Gap 5 mmol/L; Bilirubin, Delta 0.1 mg/dL (0.0-0.2); Bilirubin,Unconjugated 0.5 mg/dL (0.0-1.1); Blood Urea Nitrogen 21 mg/dL (9-20); Calcium 8.1 mg/dL (8.4-10.2); Carbon Dioxide 26 mmol/L (22-30); Chloride 102 mmol/L (98-107); Glucose 113 mg/dL (74-99); Non-African American GFR(CKD) >90 (>60 ml/min/1.73 sqM); Potassium 3.5 mmol/L (3.5-5.1); Sodium 133 mmol/L (137-145); Total Bilirubin 0.6 mg/dL (0.2-1.3); Total Protein 5.5 g/dL (6.3-8.2)
[2022-04-29 07:49] LABS: Anisocytosis Marked; Basophils % (A) 0 %; Eosinophils % (A) 0 %; HCT 21.8 % (39.0-53.0); HGB 7.5 gm/dL (13.0-17.5); Lymphocytes # (A) 0.5 k/uL (1.0-4.8); Lymphocytes % (A) 15 %; MCH 32.8 pg (25.0-35.0); MCHC 34.4 g/dL (31.0-37.0); MCV 95.4 fL (80.0-100.0); Macrocytosis Moderate; Mean Platelet Volume 8.1; Monocytes # (A) 0.3 k/uL (0-1.0); Monocytes % (A) 9 %; Neutrophils # (A) 2.2 k/uL (1.3-7.7); Neutrophils % (A) 74 %; RBC 2.28 m/uL (4.30-5.90); RDW 24.2 % (11.5-15.5)
[2022-04-29 08:09] LABS: Platelet Count 19 k/uL (150-450)
[2022-04-29] MEDS: MULTIVITAMINS, THERA 1 EACH TAB PO SCH (09:56)
[2022-04-29] MEDS: SERTRALINE 50 MG TAB PO SCH (09:56)
[2022-04-29] MEDS: PYRIDOXINE 50 MG TAB PO SCH (09:57)
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
[2022-04-29 11:37] LABS: Glucose,Whole Blood 153 mg/dL (70-110)
--- NOTE | 2022-04-29 12:28 | P.PN ---
Subjective This is a pleasant 61 years old male with past medical history of lung cancer that he follows up with Dr. gonzalez from [facility], last chemotherapy was about one week ago. Also he has history of brain tumor and esophageal tumor which is been treated. Status post radiotherapy to the chest. Other chronic medical problems include GERD, hypertension, osteoarthritis, seizure disorder on antiseizure medication. He is saturating 96% on 3 L oxygen via nasal cannula Presents because of severe right shoulder pain and around his right upper chest and area of Port-A-Cath which started yesterday, pain is severe as like 10/10 without trauma. Right hip to little bit to the neck and the elbow exacerbated by movement. Associated with some shortness of breath and dry cough. No chest pain no headache or dizziness currently. No abdominal or urinary complaints today. He quit smoking and drinking about one year ago, no illicit drugs. He has PEG tube which he does not use currently, it was from the time off with treatment for his esophageal cancer, his planned to have an EGD on the of this month so it can be removed. Patient is afebrile, blood pressure on the low side 96/56, was 125/72 on admission., Heart rate was on 60s per minute, however this morning he developed an episode of tachycardia with EKG suspicious for SVT with a heart rate of 150/m. In reviewing the labs his hemoglobin around 8.2 yesterday, dropped down to 6.8 today. WBC 6.3 and 5.2. And platelet count 26 and 19 INR is 0.9. Sodium 134 and 128, rest of BMP and liver enzymes are unremarkable. Magnesium was low 1.3 which is been replaced. Troponin less than 0.012 and 0.2 which is elevated. ProBNP is 35 3, Chest x-ray showing left upper lung field consolidation with no pneumothorax. Right Port-A-Cath in the SVC EKG showing normal sinus rhythm at [address]-T changes and QTC 438. CT of the brain no acute intracranial abnormality Shoulder x-ray: No acute fracture or dislocation In the emergency room he received Dilaudid and 1 L of normal saline Several consultants are called on the case including orthopedic, radiotherapy, oncologist, campus recruiting intern, printer assistant. 7-12-17 Patient looks more comfortable today with the severe right shoulder pain His mildly tachypneic at rest with occasional coughing and he was been diagnosed with pneumonia after CAT scan of the chest done yesterday and he is currently on Zosyn and IV vancomycin. Rest of vitals and labs were stable except for sodium which is going down to 127. He has by cytopenia with hemoglobin 7.6 and platelet 20,000. Oxygen requirement down to 5 L/m. Ejection fraction 55-60%. Rawcalcitonin 0.18. Patient currently also started on some of the raw 60 mg while normal saline was stopped. Aspirin and heparin on hold for thrombocytopenia. We will do worked up for hyponatremia Regarding his right shoulder CT showing hypertrophic osteoarthritis of the glenohumeral joint with no fracture, steroid is recommended 04/27/2022 Patient looks more calm, comfortable, his right shoulder pain is minimal, sling in place and he is continued on some Medrol 60 mg every 6 hours and pain managem ent. Breathing is better is quiet while at rest, he is saturating 92% on 5 L is a known case of lung cancer and there is suspicion of pneumonia. No leukocytosis, no fever and 4calcitonin is only 0.18, he remains on Zosyn and IV vancomycin, continue management per pulmonary team recommendation No more SVT, he is on metoprolol 25 mg and campus recruiting intern signed off. We will lower the dose of Dilaudid 1 mg down to 0.5 mg every 4 hours instead of 3 hours 04/28/2022 Patient does not look septic however his with patchy pneumonitis with some respiratory symptoms and hypoxia. 4calcitonin 0.18. He remains on 4-5 L of oxygen via nasal cannula Today he has pancytopenia with hemoglobin 6.8 receiving irradiated blood transfusion per radiologist. Sodium improving more than 150. He remains on Zosyn but vancomycin was discontinued and also kept on IV Solu- Medrol 04/29/2020 patient breathing continued to improve gradually and slowly, currently a 4 L oxygen via nasal cannula with saturation of 90%. Patient is still complaining of from some dyspnea with exertional dyspnea. He remains on Zosyn and IV Solu-Medrol although the suspicion of infection is less likely and his poorcalcitonin is normal today. He is bradycardiac today at 47 Anika asymptomatic, he was on metoprolol 50 mg daily at home which is lowered here to 25 mg twice a day. Metoprolol was held this morning. Patient has been evaluated by campus recruiting intern for SVT pelvis and off, going to reconsult campus recruiting intern for possible sick sinus syndrome Objective - Vital Signs Vital signs: Vital Signs Temp 97.9 F 04/29/22 09:00 Pulse 47 L 04/29/22 09:00 Resp 18 04/29/22 09:00 BP 154/81 04/29/22 09:00 Pulse Ox 90 L 04/29/22 09:00 FiO2 Intake & Output 04/28/22 04/29/22 04/29/22 18:59 06:59 18:59 Intake Total 1177 310 Output Total 310 700 375 Balance 867 390 375 Intake: Oral 1177 Blood Product 0 310 Rc Irr As1 Unit 0 310 [id number] Output: Urine 310 700 375 Other: Voiding Method Toilet Toilet Toilet Urinal Urinal Urinal - Exam GENERAL: The patient is alert and oriented x3, not in any acute distress. Well developed, well nourished. HEENT: Pupils are round and equally reacting to light. EOMI. No scleral icterus. No conjunctival pallor. Normocephalic, atraumatic. No pharyngeal erythema. No thyromegaly. CARDIOVASCULAR: S1 and S2 present. No murmurs, rubs, or gallops. -PULMONARY: Chest is clear to auscultation, no wheezing or crackles. Bilateral crepitation scattered ABDOMEN: Soft, nontender, nondistended, normoactive bowel sounds. No palpable organomegaly. MUSCULOSKELETAL: No joint swelling or deformity. EXTREMITIES: No cyanosis, clubbing, or pedal edema. NEUROLOGICAL: Gross neurological examination did not reveal any focal deficits. SKIN: No rashes. no petechiae. - Labs CBC & Chem 7: 04/29/22 06:16 04/29/22 06:16 Labs: Abnormal Lab Results - Last 24 Hours (Table) 04/25/22 04/28/22 04/28/22 Range/Units 11:51 12:02 16:32 WBC (3.8-10.6) k/uL RBC (4.30-5.90) m/uL Hgb (13.0-17.5) gm/dL Hct (39.0-53.0) % RDW (11.5-15.5) % Plt Count (150-450) k/uL Lymphocytes # (1.0-4.8) k/uL Sodium (137-145) mmol/L BUN (9-20) mg/dL Creatinine (0.66-1.25) mg/dL Glucose (74-99) mg/dL POC Glucose (mg/dL) 155 H 114 H (70-110) mg/dL Calcium (8.4-10.2) mg/dL ALT (4-49) U/L Total Protein (6.3-8.2) g/dL Albumin (3.5-5.0) g/dL Crossmatch See Detail 04/28/22 04/29/22 04/29/22 Range/Units 20:09 06:09 06:16 WBC 3.0 L (3.8-10.6) k/uL RBC 2.28 L (4.30-5.90) m/uL Hgb 7.5 L (13.0-17.5) gm/dL Hct 21.8 L (39.0-53.0) % RDW 24.2 H (11.5-15.5) % Plt Count 19 L* (150-450) k/uL Lymphocytes # 0.5 L (1.0-4.8) k/uL Sodium (137-145) mmol/L BUN (9-20) mg/dL Creatinine (0.66-1.25) mg/dL Glucose (74-99) mg/dL POC Glucose (mg/dL) 142 H 120 H (70-110) mg/dL Calcium (8.4-10.2) mg/dL ALT (4-49) U/L Total Protein (6.3-8.2) g/dL Albumin (3.5-5.0) g/dL Crossmatch 04/29/22 Range/Units 06:16 WBC (3.8-10.6) k/uL RBC (4.30-5.90) m/uL Hgb (13.0-17.5) gm/dL Hct (39.0-53.0) % RDW (11.5-15.5) % Plt Count (150-450) k/uL Lymphocytes # (1.0-4.8) k/uL Sodium 133 L (137-145) mmol/L BUN 21 H (9-20) mg/dL Creatinine 0.56 L (0.66-1.25) mg/dL Glucose 113 H (74-99) mg/dL POC Glucose (mg/dL) (70-110) mg/dL Calcium 8.1 L (8.4-10.2) mg/dL ALT 61 H (4-49) U/L Total Protein 5.5 L (6.3-8.2) g/dL Albumin 2.7 L (3.5-5.0) g/dL Crossmatch Microbiology - Last 24 Hours (Table) 04/25/22 12:08 Blood Culture - Preliminary Blood No Growth after 72 hours 04/25/22 11:51 Blood Culture - Preliminary Blood No Growth after 72 hours Assessment and Plan Assessment: Left upper lung cancer undergoing chemotherapy 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 could be related to recent chemotherapy History Of esophageal cancer and brain tumor History of GERD Hypertension History of posterior arthritis Plan: This is a pleasant 69 years old male with lung cancers and presents with left upper chest pain and SVT Hold metoprolol and reconsult campus recruiting intern Continue with antibiotic with Zosyn only Continue with IV submental Continue with pain management. Dilaudid Follow-up recommendation by pulmonary and cardiology team. Also oncologist will evaluate the patient Orthopedic team consulted. Labs and medication were reviewed.. Continue same treatment. Continue with symptomatic treatment. Resume home medication. Monitor lytes and vitals. DVT and GI prophylaxis. Further recommendations depends on the clinical course of the patient DVT prophylaxis:No anticoagulation in view of severe thrombocytopenia and also anemias heparin GI Prophylaxis: Pepcid PT/OT:Deferred Prognosis is guarded Discussed with staff
[2022-04-29] MEDS: METOPROLOL TARTRATE 25 MG TAB PO SCH ×2 (13:31→20:09)
--- NOTE | 2022-04-29 14:43 | P.PN ---
Subjective Progress Note Date: 04/29/22 Principal diagnosis: Metastatic lung cancer, acute hypoxic respiratory failure, possible radiation pneumonitis or immunotherapy related pneumonitis 61-year-old male patient with known history of metastatic lung cancer, exact histology is not known. The patient received his treatment through [facility]. 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 Subsequently he received accommodation chemo therapy and possibly radiation therapy to the chest. He was also found to have an abnormal lesion in his esophagus, unknown whether this primary esophageal cancer versus metastatic lesion. The patient was given radiation therapy and the patient was subsequently started on immunotherapy with Keytruda every 3 weeks. He got his first injection of Keytruda few weeks back. The patient woke up because of severe excruciating pain in his right shoulder and he was unable to move his shoulder at all. The pain was quite severe.. Very limited range of motion. No trauma. No falls. He also reported some radiation of the pain across his upper chest area. Note that the patient is a Port-A-Cath catheter inserted and the catheter itself seemed to be functional. The catheter was inserted approximately a year ago. He comes into the emergency department. Chest x-ray shows a left upper lobe consolidation at the site of the previously known tumor probably radiation site. The patient also has a right-sided Port-A-Cath in place. The patient had an EKG that showed normal sinus rhythm. No acute abnormalities. X-ray of the shoulder showed no evidence of fracture-dislocation. The patient was given mor phine and Dilaudid and [place] for pain control. Orthopedic surgery evaluated the patient and they think this may be a gouty attack. Meanwhile, the patient had a white cell count of 5.2 with hemoglobin of 6.8 and a platelet count of 19 and this is a drop compared to yesterday. The patient has a sodium level of 128, potassium of 3.8, BUN of 10 and creatinine 0.6 and troponins are 0.01 and 0.275 respectively 2. ProBNP level is 353. UA was negative. The patient a chance to the intensive care unit as the patient was having severe pain and he also developed a bout of SVT and he converted to sinus mechanism and is back into sinus. Patient was seen by cardiology. He will be having an echocardiogram. Will be continuing his beta jd 04/26/2022 the patient is still having issues with pain of the right shoulder. The patient is also on 5 L about 2 by nasal cannula. CAT scan of the shoulder showed osteoarthritis. CT angiogram of the chest was done that showed no evidence of any pulmonary embolism. There was some bullous emphysema and there is also extensive coarse interstitial and airspace infiltrates in the mid and lower lung lambert bilaterally and in the left suprahilar area. There is no evidence of any pulmonary embolism. Based on that, the patient was started on broad-spectrum antibiotics and the patient is currently on a combination of cefepime and vancomycin. 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 Patient was started on steroids today. Sodium level is at 127 with a mean of 8 and a creatinine of 0.4. Pulse ox is 96% 5 L about 2 by nasal cannula. Breathing is nonlabored. 04/27/2022, the patient is feeling better. He remains on 5 L about 2 by nasal cannula. The pain across left chest and shoulder improved significantly and the patient is able to move his shoulder for now. He was started on steroids yesterday. He is also on a, history of vancomycin and Zosyn. Cultures are all negative thus far. In terms of his blood work, the patient was echo to 5.6 with a hemoglobin of 7.2, normal electrolytes, sodium level is at 130. Cultures are negative. 04/28/2022, no new complaints and the patient remains oxygen dependent at 5 L O2 nasal cannula. Attempts to wean down the FiO2 failure the patient became profoundly hypoxic in the mid 80s. Currently is on 5 L. His breathing status is improved. Is also reporting improvement in the pain and the mobility in the right shoulder. Nevertheless, the patient has developed an acute anemia with a hemoglobin of 6.8 and is an acute drop in his hemoglobin on November is chronic anemia. The patient also has a white cell count 3.7 and a platelet count of 19. A repeat chest x-ray was done and the findings are essentially stable and unchanged with some scattered airspace opacities within the left lung and the site of previous radiation therapy. On 04/29/2022 patient was seen in follow-up on [facility] care unit. Patient is sitting up in the chair, in no acute distress, does have mild conversational dyspnea, occasional cough, no complaints of chest discomfort, satting 90% on 4 L. Remains on Zosyn, IV steroids per possibility of radiation versus immunotherapy related pneumonitis. Blood cultures have shown no growth thus far. Today's labs have been reviewed, white blood cell count is 3.0, hemoglobin is 7.5, platelet count is 19, sodium is 133, potassium is 3.5, B1 is 21, creatinine 0.56, pro calcitonin level is 0.06. Last chest x-ray from 04/28/2022 showed scattered airspace opacities most pronounced in the left lung, no pneumothorax, and trace left pleural effusion. Objective - Vital Signs Vital signs: Vital Signs Temp 97.5 F L 04/29/22 12:05 Pulse 51 L 04/29/22 12:05 Resp 18 04/29/22 12:05 BP 170/81 04/29/22 12:05 Pulse Ox 95 04/29/22 12:05 FiO2 Intake & Output 04/28/22 04/29/22 04/29/22 18:59 06:59 18:59 Intake Total 1177 310 Output Total 310 700 375 Balance 867 -390 -375 Intake: Oral 1177 Blood Product 0 310 Rc Irr As1 Unit 0 310 [id number] Output: Urine 310 700 375 Other: Voiding Method Toilet Toilet Toilet Urinal Urinal Urinal # Bowel Movements 1 - Exam GENERAL EXAM: Alert, very pleasant 61-year-old white male, on 4 L of oxygen pulse ox of 90-95% comfortable in no apparent distress. HEAD: Normocephalic/atraumatic. EYES: Normal reaction of pupils, equal size. Conjunctiva pink, sclera white. NOSE: Clear with pink turbinates. THROAT: No erythema or exudates. NECK: No masses, no JVD, no thyroid enlargement, no adenopathy. CHEST: No chest wall deformity. Symmetrical expansion. LUNGS: Equal air entry with scattered crackles CVS: Regular rate and rhythm, normal S1 and S2, no gallops, no murmurs, no rubs ABDOMEN: Soft, nontender. No hepatosplenomegaly, normal bowel sounds, no guarding or rigidity. EXTREMITIES: No clubbing, no edema, no cyanosis, 2+ pulses and upper and lower extremities. MUSCULOSKELETAL: Muscle strength and tone normal. SPINE: No scoliosis or deformity SKIN: No rashes CENTRAL NERVOUS SYSTEM: Alert and oriented -3. No focal deficits, tone is normal in all 4 extremities. PSYCHIATRIC: Alert and oriented -3. Appropriate affect. Intact judgment and insight. - Labs CBC & Chem 7: 04/29/22 06:16 04/29/22 06:16 Labs: Abnormal Lab Results - Last 24 Hours (Table) 04/25/22 04/28/22 04/28/22 Range/Units 11:51 16:32 20:09 WBC (3.8-10.6) k/uL RBC (4.30-5.90) m/uL Hgb (13.0-17.5) gm/dL Hct (39.0-53.0) % RDW (11.5-15.5) % Plt Count (150-450) k/uL Lymphocytes # (1.0-4.8) k/uL Sodium (137-145) mmol/L BUN (9-20) mg/dL Creatinine (0.66-1.25) mg/dL Glucose (74-99) mg/dL POC Glucose (mg/dL) 114 H 142 H (70-110) mg/dL Calcium (8.4-10.2) mg/dL ALT (4-49) U/L Total Protein (6.3-8.2) g/dL Albumin (3.5-5.0) g/dL Crossmatch See Detail 04/29/22 04/29/22 04/29/22 Range/Units 06:09 06:16 06:16 WBC 3.0 L (3.8-10.6) k/uL RBC 2.28 L (4.30-5.90) m/uL Hgb 7.5 L (13.0-17.5) gm/dL Hct 21.8 L (39.0-53.0) % RDW 24.2 H (11.5-15.5) % Plt Count 19 L* (150-450) k/uL Lymphocytes # 0.5 L (1.0-4.8) k/uL Sodium 133 L (137-145) mmol/L BUN 21 H (9-20) mg/dL Creatinine 0.56 L (0.66-1.25) mg/dL Glucose 113 H (74-99) mg/dL POC Glucose (mg/dL) 120 H (70-110) mg/dL Calcium 8.1 L (8.4-10.2) mg/dL ALT 61 H (4-49) U/L Total Protein 5.5 L (6.3-8.2) g/dL Albumin 2.7 L (3.5-5.0) g/dL Crossmatch 04/29/22 Range/Units 11:35 WBC (3.8-10.6) k/uL RBC (4.30-5.90) m/uL Hgb (13.0-17.5) gm/dL Hct (39.0-53.0) % RDW (11.5-15.5) % Plt Count (150-450) k/uL Lymphocytes # (1.0-4.8) k/uL Sodium (137-145) mmol/L BUN (9-20) mg/dL Creatinine (0.66-1.25) mg/dL Glucose (74-99) mg/dL POC Glucose (mg/dL) 153 H (70-110) mg/dL Calcium (8.4-10.2) mg/dL ALT (4-49) U/L Total Protein (6.3-8.2) g/dL Albumin (3.5-5.0) g/dL Crossmatch Microbiology - Last 24 Hours (Table) 04/25/22 12:08 Blood Culture - Preliminary Blood No Growth after 96 hours 04/25/22 11:51 Blood Culture - Preliminary Blood No Growth after 96 hours Assessment and Plan Plan: Assessment: #1. Metastatic stage IV lung cancer, post craniotomy and resection of a [employer] tumor followed by radiation therapy, patient has completed chemotherapy, patient is currently on T2 to/immunotherapy #2. Left upper lobe/suprahilar opacity, likely related of previously known lung cancer, doubt pneumonia, patient remains covered with empiric and advised the form of Zosyn #3. Bilateral interstitial and alveolar infiltrates involving the lung bases in the left suprahilar area, rule out radiation pneumonitis or interstitial lung disease related to immunotherapy #4. Esophageal cancer post radiation therapy #5. Acute right shoulder pain with marked limitation of range of motion, no evidence of fracture or dislocation, right upper extremity Doppler was negative for DVT, and computed tomography scan of the shoulder shows no evidence of any fractures or dislocation #6. Anemia/thrombocytopenia #7. SVT, recovered, patient is in sinus rhythm #8. Troponin leak related to the above #9. COPD with bilateral emphysematous changes #10. Acid reflux #11. Hypertension #12. Osteoarthritis #13. Previous history of seizures Plan: Continue IV steroids Continue antibiotics Follow-up has been noted, blood cultures remain negative Incentive spirometer use Continue current medical treatment I have personally seen and examined the patient, performed the documentation and the assessment and plan as written. Number of minutes spent on the visit: [10] Time with Patient: Less than 30
[2022-04-29 16:13] LABS: Glucose,Whole Blood 127 mg/dL (70-110)
[2022-04-29 20:29] LABS: Glucose,Whole Blood 154 mg/dL (70-110)
--- NOTE | 2022-04-29 20:49 | P.PN ---
Subjective Progress Note Date: 04/29/22 Objective - Vital Signs Vital signs: Vital Signs Temp 97.5 F L 04/29/22 12:05 Pulse 51 L 04/29/22 12:05 Resp 18 04/29/22 12:05 BP 170/81 04/29/22 12:05 Pulse Ox 95 04/29/22 12:05 FiO2 Intake & Output 04/28/22 04/29/22 04/29/22 18:59 06:59 18:59 Intake Total 1177 310 Output Total 310 700 375 Balance 867 -390 -375 Intake: Oral 1177 Blood Product 0 310 Rc Irr As1 Unit 0 310 [id number] Output: Urine 310 700 375 Other: Voiding Method Toilet Toilet Toilet Urinal Urinal Urinal - Exam - Constitutional General appearance: cooperative, no acute distress - EENT Eyes: EOMI ENT: NA/AT - Neck Neck: normal ROM - Respiratory Respiratory: bilateral: diminished - Cardiovascular Rhythm: regularly irregular - Gastrointestinal General gastrointestinal: soft - Integumentary Integumentary: pale - Musculoskeletal Musculoskeletal: generalized weakness - Psychiatric Psychiatric: A&O x's 3 - Labs CBC & Chem 7: 04/29/22 06:16 04/29/22 06:16 Labs: Abnormal Lab Results - Last 24 Hours (Table) 04/25/22 04/28/22 04/28/22 Range/Units 11:51 16:32 20:09 WBC (3.8-10.6) k/uL RBC (4.30-5.90) m/uL Hgb (13.0-17.5) gm/dL Hct (39.0-53.0) % RDW (11.5-15.5) % Plt Count (150-450) k/uL Lymphocytes # (1.0-4.8) k/uL Sodium (137-145) mmol/L BUN (9-20) mg/dL Creatinine (0.66-1.25) mg/dL Glucose (74-99) mg/dL POC Glucose (mg/dL) 114 H 142 H (70-110) mg/dL Calcium (8.4-10.2) mg/dL ALT (4-49) U/L Total Protein (6.3-8.2) g/dL Albumin (3.5-5.0) g/dL Crossmatch See Detail 04/29/22 04/29/22 04/29/22 Range/Units 06:09 06:16 06:16 WBC 3.0 L (3.8-10.6) k/uL RBC 2.28 L (4.30-5.90) m/uL Hgb 7.5 L (13.0-17.5) gm/dL Hct 21.8 L (39.0-53.0) % RDW 24.2 H (11.5-15.5) % Plt Count 19 L* (150-450) k/uL Lymphocytes # 0.5 L (1.0-4.8) k/uL Sodium 133 L (137-145) mmol/L BUN 21 H (9-20) mg/dL Creatinine 0.56 L (0.66-1.25) mg/dL Glucose 113 H (74-99) mg/dL POC Glucose (mg/dL) 120 H (70-110) mg/dL Calcium 8.1 L (8.4-10.2) mg/dL ALT 61 H (4-49) U/L Total Protein 5.5 L (6.3-8.2) g/dL Albumin 2.7 L (3.5-5.0) g/dL Crossmatch 04/29/22 Range/Units 11:35 WBC (3.8-10.6) k/uL RBC (4.30-5.90) m/uL Hgb (13.0-17.5) gm/dL Hct (39.0-53.0) % RDW (11.5-15.5) % Plt Count (150-450) k/uL Lymphocytes # (1.0-4.8) k/uL Sodium (137-145) mmol/L BUN (9-20) mg/dL Creatinine (0.66-1.25) mg/dL Glucose (74-99) mg/dL POC Glucose (mg/dL) 153 H (70-110) mg/dL Calcium (8.4-10.2) mg/dL ALT (4-49) U/L Total Protein (6.3-8.2) g/dL Albumin (3.5-5.0) g/dL Crossmatch Microbiology - Last 24 Hours (Table) 04/25/22 12:08 Blood Culture - Preliminary Blood No Growth after 72 hours 04/25/22 11:51 Blood Culture - Preliminary Blood No Growth after 72 hours Assessment and Plan (1) Normocytic anemia Narrative/Plan: No evidence of Iron deficiency, B12 suboptiomal, folate wnl. Hyperthyroid on rior labs, no significant significance. Transfuse <7 Current Visit: Yes Status: Acute Code(s): D64.9 - ANEMIA, UNSPECIFIED SNOMED Code(s): 209012022 (2) Thrombocytopenia Narrative/Plan: Transfuse less than 10K, Hold ASA, AC, NSAIDS if less than 50K This is persistent during hospitalization and not recovering, repeat DIC and thrombocytopenia work-up in am. No evidence of bleeding. Blood cultures negative. Current Visit: Yes Status: Acute Code(s): D69.6 - THROMBOCYTOPENIA, UNSPECIFIED SNOMED Code(s): 654518420 (3) Metastatic lung cancer (metastasis from lung to other site) Narrative/Plan: Currently on just immune therapy with Dr. Delaney at [facility] Current Visit: Yes Status: Acute Code(s): C34.90 - MALIGNANT NEOPLASM OF UNSP PART OF UNSP BRONCHUS OR LUNG SNOMED Code(s): 88429353 (4) Shoulder pain Current Visit: Yes Status: Acute Code(s): M25.519 - PAIN IN UNSPECIFIED SH OULDER SNOMED Code(s): 60191624
[2022-04-30 06:17] LABS: Glucose,Whole Blood 133 mg/dL (70-110)
[2022-04-30] MEDS: methylPREDNISolone SOD SUCCI 125 MG/2 ML VIAL IV SCH ×2 (06:38→12:00)
[2022-04-30] MEDS: INSULIN ASPART (NovoLOG) 100 UNIT/ML VIAL SQ SCH ×4 (06:39→20:50)
[2022-04-30] MEDS: PANTOPRAZOLE 40 MG TABLET PO SCH (06:39)
[2022-04-30] MEDS: HYDROcodone/APAP 7.5-325MG 1 EACH TAB PO PRN ×4 (06:42→20:50)
[2022-04-30 08:17] LABS: Anisocytosis Moderate; HCT 22.5 % (39.0-53.0); HGB 8.1 gm/dL (13.0-17.5); MCH 34.2 pg (25.0-35.0); MCHC 35.9 g/dL (31.0-37.0); MCV 95.3 fL (80.0-100.0); Macrocytosis Moderate; Mean Platelet Volume 8.6; RBC 2.36 m/uL (4.30-5.90); RDW 23.3 % (11.5-15.5); WBC 3.5 k/uL (3.8-10.6)
[2022-04-30 08:34] LABS: Partial Thromboplastin Time 21.1 sec (22.0-30.0)
[2022-04-30 08:35] LABS: ALT 73 U/L (4-49); AST 40 U/L (17-59); African American GFR (CKD) >90 (>60 ml/min/1.73 sqM); Albumin 2.7 g/dL (3.5-5.0); Alkaline Phosphatase 116 U/L (38-126); Anion Gap 5 mmol/L; Blood Urea Nitrogen 20 mg/dL (9-20); Calcium 8.2 mg/dL (8.4-10.2); Carbon Dioxide 29 mmol/L (22-30); Chloride 99 mmol/L (98-107); Glucose 117 mg/dL (74-99); LDH 587 U/L (313-618); Magnesium 1.8 mg/dL (1.6-2.3); Non-African American GFR(CKD) >90 (>60 ml/min/1.73 sqM); Potassium 3.3 mmol/L (3.5-5.1); Sodium 133 mmol/L (137-145); Total Bilirubin 0.7 mg/dL (0.2-1.3); Total Protein 5.5 g/dL (6.3-8.2)
[2022-04-30 09:21] LABS: Platelet Count 19 k/uL (150-450)
[2022-04-30 09:25] LABS: Lymphocytes # (M) 0.53 k/uL (1.0-4.8); Monocytes # (M) 0.14 k/uL (0-1.0); Neutrophils # (M) 2.84 k/uL (1.3-7.7); Neutrophils % (M) 81 %; Nucleated Red Blood Cells 0 /100 WBC (0-0); Polychromasia Present; Total Cells Counted 100
[2022-04-30] MEDS: SODIUM CHLORIDE 0.9% 1,000 ML IV SCH ×2 (10:00→12:00)
[2022-04-30] MEDS: PYRIDOXINE 50 MG TAB PO SCH (10:17)
[2022-04-30] MEDS: SERTRALINE 50 MG TAB PO SCH (10:17)
[2022-04-30] MEDS: MULTIVITAMINS, THERA 1 EACH TAB PO SCH (10:17)
[2022-04-30] MEDS: PIPERACILLIN-TAZOBACTAM 3.375 GM in SODIUM CHLORIDE 0.9% 100 ML IVPB SCH ×3 (10:17→23:48)
[2022-04-30] MEDS: POTASSIUM CHLORIDE ER 20 MEQ TAB.ER PO SCH ×2 (10:20→17:20)
[2022-04-30] MEDS: METOPROLOL TARTRATE 25 MG TAB PO SCH (10:29)
[2022-04-30] MEDS ORDERED: METOPROLOL TARTRATE 12.5 MG TAB PO SCH (10:49)
--- NOTE | 2022-04-30 11:05 | P.PN ---
Subjective This is a pleasant 61 years old male with past medical history of lung cancer that he follows up with Dr. gonzalez from [facility], last chemotherapy was about one week ago. Also he has history of brain tumor and esophageal tumor which is been treated. Status post radiotherapy to the chest. Other chronic medical problems include GERD, hypertension, osteoarthritis, seizure disorder on antiseizure medication. He is saturating 96% on 3 L oxygen via nasal cannula Presents because of severe right shoulder pain and around his right upper chest and area of Port-A-Cath which started yesterday, pain is severe as like 10/10 without trauma. Right hip to little bit to the neck and the elbow exacerbated by movement. Associated with some shortness of breath and dry cough. No chest pain no headache or dizziness currently. No abdominal or urinary complaints today. He quit smoking and drinking about one year ago, no illicit drugs. He has PEG tube which he does not use currently, it was from the time off with treatment for his esophageal cancer, his planned to have an EGD on the of this month so it can be removed. Patient is afebrile, blood pressure on the low side 96/56, was 125/72 on admission., Heart rate was on 60s per minute, however this morning he developed an episode of tachycardia with EKG suspicious for SVT with a heart rate of 150/m. In reviewing the labs his hemoglobin around 8.2 yesterday, dropped down to 6.8 today. WBC 6.3 and 5.2. And platelet count 26 and 19 INR is 0.9. Sodium 134 and 128, rest of BMP and liver enzymes are unremarkable. Magnesium was low 1.3 which is been replaced. Troponin less than 0.012 and 0.2 which is elevated. ProBNP is 35 3, Chest x-ray showing left upper lung field consolidation with no pneumothorax. Right Port-A-Cath in the SVC EKG showing normal sinus rhythm at [address]-T changes and QTC 438. CT of the brain no acute intracranial abnormality Shoulder x-ray: No acute fracture or dislocation In the emergency room he received Dilaudid and 1 L of normal saline Several consultants are called on the case including orthopedic, radiotherapy, oncologist, trust advisor, [id number] tank crewman. 7-12-17 Patient looks more comfortable today with the severe right shoulder pain His mildly tachypneic at rest with occasional coughing and he was been diagnosed with pneumonia after CAT scan of the chest done yesterday and he is currently on Zosyn and IV vancomycin. Rest of vitals and labs were stable except for sodium which is going down to 127. He has by cytopenia with hemoglobin 7.6 and platelet 20,000. Oxygen requirement down to 5 L/m. Ejection fraction 55-60%. Rawcalcitonin 0.18. Patient currently also started on some of the raw 60 mg while normal saline was stopped. Aspirin and heparin on hold for thrombocytopenia. We will do worked up for hyponatremia Regarding his right shoulder CT showing hypertrophic osteoarthritis of the glenohumeral joint with no fracture, steroid is recommended 04/27/2022 Patient looks more calm, comfortable, his right shoulder pain is minimal, sling in place and he is continued on some Medrol 60 mg every 6 hours and pain managem ent. Breathing is better is quiet while at rest, he is saturating 92% on 5 L is a known case of lung cancer and there is suspicion of pneumonia. No leukocytosis, no fever and 4calcitonin is only 0.18, he remains on Zosyn and IV vancomycin, continue management per pulmonary team recommendation No more SVT, he is on metoprolol 25 mg and trust advisor signed off. We will lower the dose of Dilaudid 1 mg down to 0.5 mg every 4 hours instead of 3 hours 04/28/2022 Patient does not look septic however his with patchy pneumonitis with some respiratory symptoms and hypoxia. 4calcitonin 0.18. He remains on 4-5 L of oxygen via nasal cannula Today he has pancytopenia with hemoglobin 6.8 receiving irradiated blood transfusion per radiologist. Sodium improving more than 150. He remains on Zosyn but vancomycin was discontinued and also kept on IV Solu- Medrol 04/29/2020 patient breathing continued to improve gradually and slowly, currently a 4 L oxygen via nasal cannula with saturation of 90%. Patient is still complaining of from some dyspnea with exertional dyspnea. He remains on Zosyn and IV Solu-Medrol although the suspicion of infection is less likely and his poorcalcitonin is normal today. He is bradycardiac today at 46 Anika asymptomatic, he was on metoprolol 50 mg daily at home which is lowered here to 25 mg twice a day. Metoprolol was held this morning. Patient has been evaluated by trust advisor for SVT pelvis and off, going to reconsult trust advisor for possible sick sinus syndrome 04/30/2010 Patient breathing is easier today he is saturating 97%. On 3 L per minute of Oxygen. Still have exertional dyspnea. Right shoulder pain almost resolved Labs showing persistent pancytopenia with platelets 19,000, hemoglobin 8.1 after blood transfusion and WBCs 3.5. Sodium 133, low potassium as per protocol. Still on Zosyn and IV Solu-Medrol Possible discharge in 24-48 hours if he keeps improving PT/OT Objective - Vital Signs Vital signs: Vital Signs Temp 98.2 F 04/30/22 04:00 Pulse 60 04/30/22 04:00 Resp 18 04/30/22 04:00 BP 187/89 04/30/22 04:00 Pulse Ox 97 04/30/22 04:00 FiO2 Intake & Output 04/29/22 04/30/22 04/30/22 18:59 06:59 18:59 Intake Total 240 Output Total 375 1100 750 Balance -135 -1100 -750 Intake: Oral 240 Output: Urine 375 1100 750 Other: Voiding Method Toilet Toilet Urinal Urinal # Voids 1 # Bowel Movements 1 - Exam GENERAL: The patient is alert and oriented x3, not in any acute distress. Well developed, well nourished. HEENT: Pupils are round and equally reacting to light. EOMI. No scleral icterus. No conjunctival pallor. Normocephalic, atraumatic. No pharyngeal erythema. No thyromegaly. CARDIOVASCULAR: S1 and S2 present. No murmurs, rubs, or gallops. -PULMONARY: Chest is clear to auscultation, no wheezing or crackles. Bilateral crepitation scattered ABDOMEN: Soft, nontender, nondistended, normoactive bowel sounds. No palpable organomegaly. MUSCULOSKELETAL: No joint swelling or deformity. EXTREMITIES: No cyanosis, clubbing, or pedal edema. NEUROLOGICAL: Gross neurological examination did not reveal any focal deficits. SKIN: No rashes. no petechiae. - Labs CBC & Chem 7: 04/30/22 07:43 04/30/22 07:43 Labs: Abnormal Lab Results - Last 24 Hours (Table) 04/29/22 04/29/22 04/29/22 Range/Units 11:35 16:11 20:26 WBC (3.8-10.6) k/uL RBC (4.30-5.90) m/uL Hgb (13.0-17.5) gm/dL Hct (39.0-53.0) % RDW (11.5-15.5) % Plt Count (150-450) k/uL Lymphocytes # (Manual) (1.0-4.8) k/uL APTT (22.0-30.0) sec D-Dimer (<0.60) mg/L FEU Sodium (137-145) mmol/L Potassium (3.5-5.1) mmol/L Creatinine (0.66-1.25) mg/dL Glucose (74-99) mg/dL POC Glucose (mg/dL) 153 H 127 H 154 H (70-110) mg/dL Calcium (8.4-10.2) mg/dL ALT (4-49) U/L Total Protein (6.3-8.2) g/dL Albumin (3.5-5.0) g/dL 04/30/22 04/30/22 04/30/22 Range/Units 06:15 07:43 07:43 WBC 3.5 L (3.8-10.6) k/uL RBC 2.36 L (4.30-5.90) m/uL Hgb 8.1 L (13.0-17.5) gm/dL Hct 22.5 L (39.0-53.0) % RDW 23.3 H (11.5-15.5) % Plt Count 19 L* (150-450) k/uL Lymphocytes # (Manual) 0.53 L (1.0-4.8) k/uL APTT 21.1 L (22.0-30.0) sec D-Dimer 2.64 H (<0.60) mg/L FEU Sodium (137-145) mmol/L Potassium (3.5-5.1) mmol/L Creatinine (0.66-1.25) mg/dL Glucose (74-99) mg/dL POC Glucose (mg/dL) 133 H (70-110) mg/dL Calcium (8.4-10.2) mg/dL ALT (4-49) U/L Total Protein (6.3-8.2) g/dL Albumin (3.5-5.0) g/dL 04/30/22 Range/Units 07:43 WBC (3.8-10.6) k/uL RBC (4.30-5.90) m/uL Hgb (13.0-17.5) gm/dL Hct (39.0-53.0) % RDW (11.5-15.5) % Plt Count (150-450) k/uL Lymphocytes # (Manual) (1.0-4.8) k/uL APTT (22.0-30.0) sec D-Dimer (<0.60) mg/L FEU Sodium 133 L (137-145) mmol/L Potassium 3.3 L (3.5-5.1) mmol/L Creatinine 0.53 L (0.66-1.25) mg/dL Glucose 117 H (74-99) mg/dL POC Glucose (mg/dL) (70-110) mg/dL Calcium 8.2 L (8.4-10.2) mg/dL ALT 73 H (4-49) U/L Total Protein 5.5 L (6.3-8.2) g/dL Albumin 2.7 L (3.5-5.0) g/dL Microbiology - Last 24 Hours (Table) 04/25/22 12:08 Blood Culture - Preliminary Blood No Growth after 96 hours 04/25/22 11:51 Blood Culture - Preliminary Blood No Growth after 96 hours Assessment and Plan Assessment: Left upper lung cancer undergoing chemotherapy 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 could be related to recent chemotherapy History Of esophageal cancer and brain tumor History of GERD Hypertension History of posterior arthritis Plan: This is a pleasant 69 years old male with lung cancers and presents with left upper chest pain and SVT Hold metoprolol and reconsult trust advisor Continue with antibiotic with Zosyn only Continue with IV submental Continue with pain management. Dilaudid Follow-up recommendation by pulmonary and cardiology team. Also oncologist will evaluate the patient Labs and medication were reviewed.. Continue same treatment. Continue with symptomatic treatment. Resume home medication. Monitor lytes and vitals. DVT and GI prophylaxis. Further recommendations depends on the clinical course of the patient DVT prophylaxis:No anticoagulation in view of severe thrombocytopenia and also anemias heparin GI Prophylaxis: Pepcid PT/OT:Deferred Prognosis is guarded Discussed with staff
[2022-04-30 11:37] LABS: Glucose,Whole Blood 186 mg/dL (70-110)
[2022-04-30 12:56] VITALS: BMI 25.8
--- NOTE | 2022-04-30 13:14 | P.PN ---
Subjective Progress Note Date: 04/30/22 Principal diagnosis: Metastatic lung cancer, acute hypoxic respiratory failure, possible radiation pneumonitis or immunotherapy related pneumonitis 61-year-old male patient with known history of metastatic lung cancer, exact histology is not known. The patient received his treatment through [facility]. 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 Subsequently he received accommodation chemo therapy and possibly radiation therapy to the chest. He was also found to have an abnormal lesion in his esophagus, unknown whether this primary esophageal cancer versus metastatic lesion. The patient was given radiation therapy and the patient was subsequently started on immunotherapy with Keytruda every 3 weeks. He got his first injection of Keytruda few weeks back. The patient woke up because of severe excruciating pain in his right shoulder and he was unable to move his shoulder at all. The pain was quite severe.. Very limited range of motion. No trauma. No falls. He also reported some radiation of the pain across his upper chest area. Note that the patient is a Port-A-Cath catheter inserted and the catheter itself seemed to be functional. The catheter was inserted approximately a year ago. He comes into the emergency department. Chest x-ray shows a left upper lobe consolidation at the site of the previously known tumor probably radiation site. The patient also has a right-sided Port-A-Cath in place. The patient had an EKG that showed normal sinus rhythm. No acute abnormalities. X-ray of the shoulder showed no evidence of fracture-dislocation. The patient was given mor phine and Dilaudid and Mercer for pain control. Orthopedic surgery evaluated the patient and they think this may be a gouty attack. Meanwhile, the patient had a white cell count of 5.2 with hemoglobin of 6.8 and a platelet count of 19 and this is a drop compared to yesterday. The patient has a sodium level of 128, potassium of 3.8, BUN of 10 and creatinine 0.6 and troponins are 0.01 and 0.275 respectively 2. ProBNP level is 353. UA was negative. The patient a chance to the intensive care unit as the patient was having severe pain and he also developed a bout of SVT and he converted to sinus mechanism and is back into sinus. Patient was seen by cardiology. He will be having an echocardiogram. Will be continuing his beta jd 04/26/2022 the patient is still having issues with pain of the right shoulder. The patient is also on 5 L about 2 by nasal cannula. CAT scan of the shoulder showed osteoarthritis. CT angiogram of the chest was done that showed no evidence of any pulmonary embolism. There was some bullous emphysema and there is also extensive coarse interstitial and airspace infiltrates in the mid and lower lung lambert bilaterally and in the left suprahilar area. There is no evidence of any pulmonary embolism. Based on that, the patient was started on broad-spectrum antibiotics and the patient is currently on a combination of cefepime and vancomycin. 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 Patient was started on steroids today. Sodium level is at 127 with a mean of 8 and a creatinine of 0.4. Pulse ox is 96% 5 L about 2 by nasal cannula. Breathing is nonlabored. 04/27/2022, the patient is feeling better. He remains on 5 L about 2 by nasal cannula. The pain across left chest and shoulder improved significantly and the patient is able to move his shoulder for now. He was started on steroids yesterday. He is also on a, history of vancomycin and Zosyn. Cultures are all negative thus far. In terms of his blood work, the patient was echo to 5.6 with a hemoglobin of 7.2, normal electrolytes, sodium level is at 130. Cultures are negative. 04/28/2022, no new complaints and the patient remains oxygen dependent at 5 L O2 nasal cannula. Attempts to wean down the FiO2 failure the patient became profoundly hypoxic in the mid 80s. Currently is on 5 L. His breathing status is improved. Is also reporting improvement in the pain and the mobility in the right shoulder. Nevertheless, the patient has developed an acute anemia with a hemoglobin of 6.8 and is an acute drop in his hemoglobin on November is chronic anemia. The patient also has a white cell count 3.7 and a platelet count of 19. A repeat chest x-ray was done and the findings are essentially stable and unchanged with some scattered airspace opacities within the left lung and the site of previous radiation therapy. On 04/29/2022 patient was seen in follow-up on [facility] care unit. Patient is sitting up in the chair, in no acute distress, does have mild conversational dyspnea, occasional cough, no complaints of chest discomfort, satting 90% on 4 L. Remains on Zosyn, IV steroids per possibility of radiation versus immunotherapy related pneumonitis. Blood cultures have shown no growth thus far. Today's labs have been reviewed, white blood cell count is 3.0, hemoglobin is 7.5, platelet count is 19, sodium is 133, potassium is 3.5, B1 is 21, creatinine 0.56, pro calcitonin level is 0.06. Last chest x-ray from 04/28/2022 showed scattered airspace opacities most pronounced in the left lung, no pneumothorax, and trace left pleural effusion. On 04/30/2022 patient seen in follow-up on selective care unit. Patient is currently off supplemental oxygen, earlier this morning she was sat 99% on 3 L, breathing comfortably, coughing less. He is currently on room air. Afebrile, vital signs have been stable. Blood cultures have been negative. Today's labs have been reviewed showing White blood cell, 3.5, hemoglobin of 8.1, platelet count is 19, d-dimer is 2.64, fibrinogen is 353, PTT is 21.1, INR is 1.0. Unlikely DIC. Hematology following. Patient continues on IV steroids, empiric antibiotics with Zosyn. Overall seems to be feeling better Objective - Vital Signs Vital signs: Vital Signs Temp 97.4 F L 04/30/22 12:03 Pulse 57 L 04/30/22 12:03 Resp 18 04/30/22 12:03 BP 134/63 04/30/22 12:03 Pulse Ox 96 04/30/22 12:03 FiO2 Intake & Output 04/29/22 04/30/22 04/30/22 18:59 06:59 18:59 Intake Total 240 270 Output Total 375 1100 750 Balance -135 -1100 -480 Weight 96.162 kg Intake: IV 10 Invasive Line 2 10 Oral 240 260 Output: Urine 375 1100 750 Other: Voiding Method Toilet Toilet Toilet Urinal Urinal Urinal # Voids 1 # Bowel Movements 1 - Exam GENERAL EXAM: Alert, very pleasant 61-year-old white male, on room air comfortable in no apparent distress. HEAD: Normocephalic/atraumatic. EYES: Normal reaction of pupils, equal size. Conjunctiva pink, sclera white. NOSE: Clear with pink turbinates. THROAT: No erythema or exudates. NECK: No masses, no JVD, no thyroid enlargement, no adenopathy. CHEST: No chest wall deformity. Symmetrical expansion. LUNGS: Equal air entry with scattered crackles CVS: Regular rate and rhythm, normal S1 and S2, no gallops, no murmurs, no rubs ABDOMEN: Soft, nontender. No hepatosplenomegaly, normal bowel sounds, no guarding or rigidity. EXTREMITIES: No clubbing, no edema, no cyanosis, 2+ pulses and upper and lower extremities. MUSCULOSKELETAL: Muscle strength and tone normal. SPINE: No scoliosis or deformity SKIN: No rashes CENTRAL NERVOUS SYSTEM: Alert and oriented -3. No focal deficits, tone is normal in all 4 extremities. PSYCHIATRIC: Alert and oriented -3. Appropriate affect. Intact judgment and insight. - Labs CBC & Chem 7: 04/30/22 07:43 04/30/22 07:43 Labs: Abnormal Lab Results - Last 24 Hours (Table) 04/29/22 04/29/22 04/30/22 Range/Units 16:11 20:26 06:15 WBC (3.8-10.6) k/uL RBC (4.30-5.90) m/uL Hgb (13.0-17.5) gm/dL Hct (39.0-53.0) % RDW (11.5-15.5) % Plt Count (150-450) k/uL Lymphocytes # (Manual) (1.0-4.8) k/uL APTT (22.0-30.0) sec D-Dimer (<0.60) mg/L FEU Sodium (137-145) mmol/L Potassium (3.5-5.1) mmol/L Creatinine (0.66-1.25) mg/dL Glucose (74-99) mg/dL POC Glucose (mg/dL) 127 H 154 H 133 H (70-110) mg/dL Calcium (8.4-10.2) mg/dL ALT (4-49) U/L Total Protein (6.3-8.2) g/dL Albumin (3.5-5.0) g/dL 04/30/22 04/30/22 04/30/22 Range/Units 07:43 07:43 07:43 WBC 3.5 L (3.8-10.6) k/uL RBC 2.36 L (4.30-5.90) m/uL Hgb 8.1 L (13.0-17.5) gm/dL Hct 22.5 L (39.0-53.0) % RDW 23.3 H (11.5-15.5) % Plt Count 19 L* (150-450) k/uL Lymphocytes # (Manual) 0.53 L (1.0-4.8) k/uL APTT 21.1 L (22.0-30.0) sec D-Dimer 2.64 H (<0.60) mg/L FEU Sodium 133 L (137-145) mmol/L Potassium 3.3 L (3.5-5.1) mmol/L Creatinine 0.53 L (0.66-1.25) mg/dL Glucose 117 H (74-99) mg/dL POC Glucose (mg/dL) (70-110) mg/dL Calcium 8.2 L (8.4-10.2) mg/dL ALT 73 H (4-49) U/L Total Protein 5.5 L (6.3-8.2) g/dL Albumin 2.7 L (3.5-5.0) g/dL 04/30/22 Range/Units 11:37 WBC (3.8-10.6) k/uL RBC (4.30-5.90) m/uL Hgb (13.0-17.5) gm/dL Hct (39.0-53.0) % RDW (11.5-15.5) % Plt Count (150-450) k/uL Lymphocytes # (Manual) (1.0-4.8) k/uL APTT (22.0-30.0) sec D-Dimer (<0.60) mg/L FEU Sodium (137-145) mmol/L Potassium (3.5-5.1) mmol/L Creatinine (0.66-1.25) mg/dL Glucose (74-99) mg/dL POC Glucose (mg/dL) 186 H (70-110) mg/dL Calcium (8.4-10.2) mg/dL ALT (4-49) U/L Total Protein (6.3-8.2) g/dL Albumin (3.5-5.0) g/dL Microbiology - Last 24 Hours (Table) 04/25/22 12:08 Blood Culture - Preliminary Blood No Growth after 96 hours 04/25/22 11:51 Blood Culture - Preliminary Blood No Growth after 96 hours Assessment and Plan Plan: Assessment: #1. Metastatic stage IV lung cancer, post craniotomy and resection of a [employer] tumor followed by radiation therapy, patient has completed chemotherapy, patient is currently on T2 to/immunotherapy #2. Left upper lobe/suprahilar opacity, likely related of previously known lung cancer, doubt pneumonia, patient remains covered with empiric and advised the form of Zosyn #3. Bilateral interstitial and alveolar infiltrates involving the lung bases in the left suprahilar area, rule out radiation pneumonitis or interstitial lung disease related to immunotherapy #4. Esophageal cancer post radiation therapy #5. Acute right shoulder pain with marked limitation of range of motion, no evidence of fracture or dislocation, right upper extremity Doppler was negative for DVT, and computed tomography scan of the shoulder shows no evidence of any fractures or dislocation #6. Anemia/thrombocytopenia #7. SVT, recovered, patient is in sinus rhythm #8. Troponin leak related to the above #9. COPD with bilateral emphysematous changes #10. Acid reflux #11. Hypertension #12. Osteoarthritis #13. Previous history of seizures Plan: Clinically patient is improving He is on room air Obtain home oxygen assessment Increase activity as tolerated Follow-up chest x-ray in the morning Continue with IV antibiotics We'll transition IV steroids to oral prednisone Today's labs have been noted Platelets remain low, but no active bleeding is noted DIC workup was negative If continues to improve and remaines stable he may be considered for discharge home in the next 24-48 hours from pulmonary perspective Patient will need outpatient follow-up with his oncologist at the [facility] after discharge I have personally seen and examined the patient, performed the documentation and the assessment and plan as written. Number of minutes spent on the visit: [10] Time with Patient: Less than 30
--- NOTE | 2022-04-30 14:01 | P.PN ---
Subjective The patient is a 61-year-old male with a known history of metastatic non-small cell lung cancer status post radiation and chemotherapy, history of esophageal cancer who presented with right shoulder discomfort. He had an episode of SVT but subsequently converted back to sinus mechanism. He continues to be in sinus mechanism. He had episodes of sinus bradycardia yesterday and overnight with HR 40s-50s, HR low around 43bpm, mostly happening overnight while sleeping. He has dyspnea and has been diagnosed with pneumonia and started on antibiotics. His echocardiogram showed a preserved systolic function with no significant valvular disease. He has no PND, orthopnea or significant peripheral edema. He denies any palpitation or chest discomfort. No further episode of SVT. Hemodynamically he is stable. He denies any nausea or vomiting. Medications: Lopressor 25 mg twice a day, Solu-Medrol, vancomycin PHYSICAL EXAMINATION: Vitals reviewed LUNGS: Few scattered crackles, catheter noted on the right side HEART: Regular rate and rhythm, S1, S2. No S3. No systolic murmur ABDOMEN: Soft, nontender, no organomegaly, PEG tube in place EXTREMETIES: No edema IMPRESSION: Right shoulder discomfort, noncardiac Stage IV metastatic lung cancer Episode of SVT, resolved with mild elevation of troponin Bicytopenia, post chemotherapy and immunotherapy Possible pneumonia History of esophageal cancer, post radiation PLAN: Continue beta jd metoprolol tartrate 12.5mg BID Recommend event monitor as outpatient to assess for arrhythmia Follow up outpatient with Dr. Vinson Nurse practitioner note has been reviewed by physician. Signing provider agrees with the documented findings, assessment, and plan of care. Objective - Vital Signs Vital signs: Vital Signs Temp 97.3 F L 04/30/22 10:11 Pulse 67 04/30/22 10:11 Resp 18 04/30/22 10:11 BP 132/76 04/30/22 10:11 Pulse Ox 99 04/30/22 10:11 FiO2 Intake & Output 04/29/22 04/30/22 04/30/22 18:59 06:59 18:59 Intake Total 240 270 Output Total 375 1100 750 Balance -135 -1100 -480 Intake: IV 10 Invasive Line 2 10 Oral 240 260 Output: Urine 375 1100 750 Other: Voiding Method Toilet Toilet Urinal Urinal # Voids 1 # Bowel Movements 1 - Labs CBC & Chem 7: 04/30/22 07:43 04/30/22 07:43 Labs: Abnormal Lab Results - Last 24 Hours (Table) 04/29/22 04/29/22 04/29/22 Range/Units 11:35 16:11 20:26 WBC (3.8-10.6) k/uL RBC (4.30-5.90) m/uL Hgb (13.0-17.5) gm/dL Hct (39.0-53.0) % RDW (11.5-15.5) % Plt Count (150-450) k/uL Lymphocytes # (Manual) (1.0-4.8) k/uL APTT (22.0-30.0) sec D-Dimer (<0.60) mg/L FEU Sodium (137-145) mmol/L Potassium (3.5-5.1) mmol/L Creatinine (0.66-1.25) mg/dL Glucose (74-99) mg/dL POC Glucose (mg/dL) 153 H 127 H 154 H (70-110) mg/dL Calcium (8.4-10.2) mg/dL ALT (4-49) U/L Total Protein (6.3-8.2) g/dL Albumin (3.5-5.0) g/dL 04/30/22 04/30/22 04/30/22 Range/Units 06:15 07:43 07:43 WBC 3.5 L (3.8-10.6) k/uL RBC 2.36 L (4.30-5.90) m/uL Hgb 8.1 L (13.0-17.5) gm/dL Hct 22.5 L (39.0-53.0) % RDW 23.3 H (11.5-15.5) % Plt Count 19 L* (150-450) k/uL Lymphocytes # (Manual) 0.53 L (1.0-4.8) k/uL APTT 21.1 L (22.0-30.0) sec D-Dimer 2.64 H (<0.60) mg/L FEU Sodium (137-145) mmol/L Potassium (3.5-5.1) mmol/L Creatinine (0.66-1.25) mg/dL Glucose (74-99) mg/dL POC Glucose (mg/dL) 133 H (70-110) mg/dL Calcium (8.4-10.2) mg/dL ALT (4-49) U/L Total Protein (6.3-8.2) g/dL Albumin (3.5-5.0) g/dL 04/30/22 Range/Units 07:43 WBC (3.8-10.6) k/uL RBC (4.30-5.90) m/uL Hgb (13.0-17.5) gm/dL Hct (39.0-53.0) % RDW (11.5-15.5) % Plt Count (150-450) k/uL Lymphocytes # (Manual) (1.0-4.8) k/uL APTT (22.0-30.0) sec D-Dimer (<0.60) mg/L FEU Sodium 133 L (137-145) mmol/L Potassium 3.3 L (3.5-5.1) mmol/L Creatinine 0.53 L (0.66-1.25) mg/dL Glucose 117 H (74-99) mg/dL POC Glucose (mg/dL) (70-110) mg/dL Calcium 8.2 L (8.4-10.2) mg/dL ALT 73 H (4-49) U/L Total Protein 5.5 L (6.3-8.2) g/dL Albumin 2.7 L (3.5-5.0) g/dL Microbiology - Last 24 Hours (Table) 04/25/22 12:08 Blood Culture - Preliminary Blood No Growth after 96 hours 04/25/22 11:51 Blood Culture - Preliminary Blood No Growth after 96 hours
[2022-04-30] MEDS: predniSONE 20 MG TAB PO SCH (15:31)
[2022-04-30 16:45] LABS: Glucose,Whole Blood 224 mg/dL (70-110)
[2022-04-30] MEDS: MAGNESIUM SULFATE-D5W PMX 1 GM in DEXTROSE/WATER 1 100ML.BAG IVPB SCH ×2 (17:20→18:20)
[2022-04-30 20:21] LABS: Glucose,Whole Blood 136 mg/dL (70-110)
--- NOTE | 2022-04-30 20:25 | P.PN ---
Subjective Progress Note Date: 04/30/22 no distinct changes, no evidence DIC Objective - Vital Signs Vital signs: Vital Signs Temp 97.1 F L 04/30/22 15:57 Pulse 61 04/30/22 15:57 Resp 18 04/30/22 15:57 BP 156/74 04/30/22 15:57 Pulse Ox 92 L 04/30/22 15:57 FiO2 Intake & Output 04/30/22 04/30/22 05/01/22 06:59 18:59 06:59 Intake Total 810 Output Total 1100 1250 Balance -1100 -440 Weight 96.162 kg Intake: IV 50 Invasive Line 2 10 Invasive Line 3 40 Oral 760 Output: Urine 1100 1250 Other: Voiding Method Toilet Toilet Urinal Urinal # Voids 1 - Exam - Constitutional General appearance: cooperative, no acute distress - EENT Eyes: EOMI ENT: NA/AT - Neck Neck: normal ROM - Respiratory Respiratory: bilateral: diminished - Cardiovascular Rhythm: regularly irregular - Gastrointestinal General gastrointestinal: soft - Integumentary Integumentary: pale - Musculoskeletal Musculoskeletal: generalized weakness - Psychiatric Psychiatric: A&O x's 3 - Labs CBC & Chem 7: 04/30/22 07:43 04/30/22 16:18 Labs: Abnormal Lab Results - Last 24 Hours (Table) 04/29/22 04/30/22 04/30/22 Range/Units 20:26 06:15 07:43 WBC 3.5 L (3.8-10.6) k/uL RBC 2.36 L (4.30-5.90) m/uL Hgb 8.1 L (13.0-17.5) gm/dL Hct 22.5 L (39.0-53.0) % RDW 23.3 H (11.5-15.5) % Plt Count 19 L* (150-450) k/uL Lymphocytes # (Manual) 0.53 L (1.0-4.8) k/uL APTT (22.0-30.0) sec D-Dimer (<0.60) mg/L FEU Sodium (137-145) mmol/L Potassium (3.5-5.1) mmol/L Creatinine (0.66-1.25) mg/dL Glucose (74-99) mg/dL POC Glucose (mg/dL) 154 H 133 H (70-110) mg/dL Calcium (8.4-10.2) mg/dL ALT (4-49) U/L Total Protein (6.3-8.2) g/dL Albumin (3.5-5.0) g/dL 04/30/22 04/30/22 04/30/22 Range/Units 07:43 07:43 11:37 WBC (3.8-10.6) k/uL RBC (4.30-5.90) m/uL Hgb (13.0-17.5) gm/dL Hct (39.0-53.0) % RDW (11.5-15.5) % Plt Count (150-450) k/uL Lymphocytes # (Manual) (1.0-4.8) k/uL APTT 21.1 L (22.0-30.0) sec D-Dimer 2.64 H (<0.60) mg/L FEU Sodium 133 L (137-145) mmol/L Potassium 3.3 L (3.5-5.1) mmol/L Creatinine 0.53 L (0.66-1.25) mg/dL Glucose 117 H (74-99) mg/dL POC Glucose (mg/dL) 186 H (70-110) mg/dL Calcium 8.2 L (8.4-10.2) mg/dL ALT 73 H (4-49) U/L Total Protein 5.5 L (6.3-8.2) g/dL Albumin 2.7 L (3.5-5.0) g/dL 04/30/22 04/30/22 Range/Units 16:18 16:44 WBC (3.8-10.6) k/uL RBC (4.30-5.90) m/uL Hgb (13.0-17.5) gm/dL Hct (39.0-53.0) % RDW (11.5-15.5) % Plt Count (150-450) k/uL Lymphocytes # (Manual) (1.0-4.8) k/uL APTT (22.0-30.0) sec D-Dimer (<0.60) mg/L FEU Sodium (137-145) mmol/L Potassium 3.3 L (3.5-5.1) mmol/L Creatinine (0.66-1.25) mg/dL Glucose (74-99) mg/dL POC Glucose (mg/dL) 224 H (70-110) mg/dL Calcium (8.4-10.2) mg/dL ALT (4-49) U/L Total Protein (6.3-8.2) g/dL Albumin (3.5-5.0) g/dL Microbiology - Last 24 Hours (Table) 04/25/22 12:08 Blood Culture - Preliminary Blood No Growth after 120 hours 04/25/22 11:51 Blood Culture - Preliminary Blood No Growth after 120 hours Assessment and Plan (1) Normocytic anemia Narrative/Plan: No evidence of Iron deficiency, B12 suboptiomal, folate wnl. Hyperthyroid on rior labs, no significant significance. Transfuse <7 Current Visit: Yes Status: Acute Code(s): D64.9 - ANEMIA, UNSPECIFIED SNO MED Code(s): 318276554 (2) Thrombocytopenia Narrative/Plan: Transfuse less than 10K, Hold ASA, AC, NSAIDS if less than 50K This is persistent during hospitalization and not recovering, No evidence of DIC and thrombocytopenia work-up otherwise neg. No evidence of bleeding. Blood cultures negative. Continue monitor for bleeding and transfuse if signs of bleeding under 50K Current Visit: Yes Status: Acute Code(s): D69.6 - THROMBOCYTOPENIA, UNSPECIFIED SNOMED Code(s): 725806476 (3) Metastatic lung cancer (metastasis from lung to other site) Narrative/Plan: Currently on just immune therapy with Dr. Delaney at [facility] Current Visit: Yes Status: Acute Code(s): C34.90 - MALIGNANT NEOPLASM OF UNSP PART OF UNSP BRONCHUS OR LUNG SNOMED Code(s): 34703688 (4) Shoulder pain Current Visit: Yes Status: Acute Code(s): M25.519 - PAIN IN UNSPECIFIED SHOULDER SNOMED Code(s): 32506963
[2022-04-30] MEDS: METOPROLOL TARTRATE 12.5 MG TAB PO SCH (20:50)
[2022-05-01] MEDS: POTASSIUM CHLORIDE ER 20 MEQ TAB.ER PO SCH ×2 (01:12→02:34)
[2022-05-01] MEDS: HYDROcodone/APAP 7.5-325MG 1 EACH TAB PO PRN ×3 (01:14→14:06)
[2022-05-01 04:32] VITALS: TEMP 97.5
[2022-05-01 06:26] LABS: Glucose,Whole Blood 106 mg/dL (70-110)
[2022-05-01] MEDS: INSULIN ASPART (NovoLOG) 100 UNIT/ML VIAL SQ SCH ×2 (06:47→12:42)
[2022-05-01] MEDS: PANTOPRAZOLE 40 MG TABLET PO SCH (06:51)
[2022-05-01 08:18] VITALS: RESP 16
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
[2022-05-01 09:12] LABS: Magnesium 1.9 mg/dL (1.6-2.3); Potassium 3.8 mmol/L (3.5-5.1)
[2022-05-01] MEDS: PIPERACILLIN-TAZOBACTAM 3.375 GM in SODIUM CHLORIDE 0.9% 100 ML IVPB SCH (09:26)
[2022-05-01] MEDS: PYRIDOXINE 50 MG TAB PO SCH (09:27)
[2022-05-01] MEDS: predniSONE 20 MG TAB PO SCH (09:28)
[2022-05-01] MEDS: METOPROLOL TARTRATE 12.5 MG TAB PO SCH (09:28)
[2022-05-01] MEDS: SERTRALINE 50 MG TAB PO SCH (09:28)
[2022-05-01] MEDS: MULTIVITAMINS, THERA 1 EACH TAB PO SCH (09:28)
[2022-05-01] MEDS: SODIUM CHLORIDE 0.9% 1,000 ML IV SCH (09:30)
[2022-05-01] MEDS ORDERED: AMOXIC-POT CLAV 875-125MG 1 EACH TAB PO SCH (11:15)
[2022-05-01 11:19] VITALS: PULSE 50
[2022-05-01 11:32] VITALS: BP 156/81
[2022-05-01 11:53] LABS: Anisocytosis Marked; Basophils % (A) 0 %; Eosinophils % (A) 0 %; HCT 27.1 % (39.0-53.0); HGB 9.2 gm/dL (13.0-17.5); Lymphocytes # (A) 0.7 k/uL (1.0-4.8); Lymphocytes % (A) 11 %; MCH 33.6 pg (25.0-35.0); MCHC 33.9 g/dL (31.0-37.0); MCV 99.3 fL (80.0-100.0); Macrocytosis Moderate; Monocytes # (A) 0.5 k/uL (0-1.0); Monocytes % (A) 8 %; Neutrophils # (A) 4.7 k/uL (1.3-7.7); Neutrophils % (A) 78 %; RBC 2.73 m/uL (4.30-5.90); RDW 24.3 % (11.5-15.5); WBC 5.9 k/uL (3.8-10.6)
[2022-05-01 11:55] LABS: Glucose,Whole Blood 83 mg/dL (70-110)
[2022-05-01 11:56] LABS: Platelet Count 24 k/uL (150-450)
[2022-05-01 12:17] LABS: ALT 72 U/L (4-49); AST 36 U/L (17-59); African American GFR (CKD) >90 (>60 ml/min/1.73 sqM); Albumin 2.6 g/dL (3.5-5.0); Alkaline Phosphatase 103 U/L (38-126); Anion Gap 6 mmol/L; Blood Urea Nitrogen 20 mg/dL (9-20); Calcium 8.4 mg/dL (8.4-10.2); Carbon Dioxide 24 mmol/L (22-30); Chloride 102 mmol/L (98-107); Glucose 90 mg/dL (74-99); Non-African American GFR(CKD) >90 (>60 ml/min/1.73 sqM); Potassium 3.8 mmol/L (3.5-5.1); Sodium 132 mmol/L (137-145); Total Bilirubin 0.8 mg/dL (0.2-1.3); Total Protein 5.3 g/dL (6.3-8.2)
--- NOTE | 2022-05-01 13:10 | P.PN ---
Subjective Progress Note Date: 05/01/22 Principal diagnosis: Metastatic lung cancer, acute hypoxic respiratory failure, possible radiation pneumonitis or immunotherapy related pneumonitis 61-year-old male patient with known history of metastatic lung cancer, exact histology is not known. The patient received his treatment through [facility]. 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 Subsequently he received accommodation chemo therapy and possibly radiation therapy to the chest. He was also found to have an abnormal lesion in his esophagus, unknown whether this primary esophageal cancer versus metastatic lesion. The patient was given radiation therapy and the patient was subsequently started on immunotherapy with Keytruda every 3 weeks. He got his first injection of Keytruda few weeks back. The patient woke up because of severe excruciating pain in his right shoulder and he was unable to move his shoulder at all. The pain was quite severe.. Very limited range of motion. No trauma. No falls. He also reported some radiation of the pain across his upper chest area. Note that the patient is a Port-A-Cath catheter inserted and the catheter itself seemed to be functional. The catheter was inserted approximately a year ago. He comes into the emergency department. Chest x-ray shows a left upper lobe consolidation at the site of the previously known tumor probably radiation site. The patient also has a right-sided Port-A-Cath in place. The patient had an EKG that showed normal sinus rhythm. No acute abnormalities. X-ray of the shoulder showed no evidence of fracture-dislocation. The patient was given mor phine and Dilaudid and [place] for pain control. Orthopedic surgery evaluated the patient and they think this may be a gouty attack. Meanwhile, the patient had a white cell count of 5.2 with hemoglobin of 6.8 and a platelet count of 19 and this is a drop compared to yesterday. The patient has a sodium level of 128, potassium of 3.8, BUN of 10 and creatinine 0.6 and troponins are 0.01 and 0.275 respectively 2. ProBNP level is 353. UA was negative. The patient a chance to the intensive care unit as the patient was having severe pain and he also developed a bout of SVT and he converted to sinus mechanism and is back into sinus. Patient was seen by cardiology. He will be having an echocardiogram. Will be continuing his beta jd 04/26/2022 the patient is still having issues with pain of the right shoulder. The patient is also on 5 L about 2 by nasal cannula. CAT scan of the shoulder showed osteoarthritis. CT angiogram of the chest was done that showed no evidence of any pulmonary embolism. There was some bullous emphysema and there is also extensive coarse interstitial and airspace infiltrates in the mid and lower lung lambert bilaterally and in the left suprahilar area. There is no evidence of any pulmonary embolism. Based on that, the patient was started on broad-spectrum antibiotics and the patient is currently on a combination of cefepime and vancomycin. 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 Patient was started on steroids today. Sodium level is at 127 with a mean of 8 and a creatinine of 0.4. Pulse ox is 96% 5 L about 2 by nasal cannula. Breathing is nonlabored. 04/27/2022, the patient is feeling better. He remains on 5 L about 2 by nasal cannula. The pain across left chest and shoulder improved significantly and the patient is able to move his shoulder for now. He was started on steroids yesterday. He is also on a, history of vancomycin and Zosyn. Cultures are all negative thus far. In terms of his blood work, the patient was echo to 5.6 with a hemoglobin of 7.2, normal electrolytes, sodium level is at 130. Cultures are negative. 04/28/2022, no new complaints and the patient remains oxygen dependent at 5 L O2 nasal cannula. Attempts to wean down the FiO2 failure the patient became profoundly hypoxic in the mid 80s. Currently is on 5 L. His breathing status is improved. Is also reporting improvement in the pain and the mobility in the right shoulder. Nevertheless, the patient has developed an acute anemia with a hemoglobin of 6.8 and is an acute drop in his hemoglobin on November is chronic anemia. The patient also has a white cell count 3.7 and a platelet count of 19. A repeat chest x-ray was done and the findings are essentially stable and unchanged with some scattered airspace opacities within the left lung and the site of previous radiation therapy. On 04/29/2022 patient was seen in follow-up on [facility] care unit. Patient is sitting up in the chair, in no acute distress, does have mild conversational dyspnea, occasional cough, no complaints of chest discomfort, satting 90% on 4 L. Remains on Zosyn, IV steroids per possibility of radiation versus immunotherapy related pneumonitis. Blood cultures have shown no growth thus far. Today's labs have been reviewed, white blood cell count is 3.0, hemoglobin is 7.5, platelet count is 19, sodium is 133, potassium is 3.5, B1 is 21, creatinine 0.56, pro calcitonin level is 0.06. Last chest x-ray from 04/28/2022 showed scattered airspace opacities most pronounced in the left lung, no pneumothorax, and trace left pleural effusion. On 04/30/2022 patient seen in follow-up on selective care unit. Patient is currently off supplemental oxygen, earlier this morning she was sat 99% on 3 L, breathing comfortably, coughing less. He is currently on room air. Afebrile, vital signs have been stable. Blood cultures have been negative. Today's labs have been reviewed showing White blood cell, 3.5, hemoglobin of 8.1, platelet count is 19, d-dimer is 2.64, fibrinogen is 353, PTT is 21.1, INR is 1.0. Unlikely DIC. Hematology following. Patient continues on IV steroids, empiric antibiotics with Zosyn. Overall seems to be feeling better On 05/01/2022 patient seen in follow-up on selective care unit, he is sitting up in the recliner, he is on room air, breathing very comfortably, he states he continues to improve, she feels great, and looks and sounds better on today's exam. Breathing comfortably, no complaints of worsening dyspnea, no cough or phlegm production. No chest pain. Today's chest x-ray has been reviewed showing extensive emphysema, and density in the left upper lobe likely related to previous tumor status post radiation. No acute events overnight. Blood cultures have shown no growth, pro calcitonin level was negative at 0.06, patient has completed a 5 day course of Zosyn. Objective - Vital Signs Vital signs: Vital Signs Temp 97.5 F L 05/01/22 11:17 Pulse 50 L 05/01/22 11:17 Resp 16 05/01/22 11:17 BP 156/81 05/01/22 11:32 Pulse Ox 96 05/01/22 11:17 FiO2 Intake & Output 04/30/22 05/01/22 05/01/22 18:59 06:59 18:59 Intake Total 810 560 Output Total 1250 700 800 Balance -440 -700 -240 Weight 96.162 kg Intake: IV 50 Invasive Line 2 10 Invasive Line 3 40 Oral 760 560 Output: Urine 1250 700 800 Other: Voiding Method Toilet Toilet Toilet Urinal Urinal Urinal # Voids 2 - Exam GENERAL EXAM: Alert, very pleasant 61-year-old white male, on room air comfor table in no apparent distress. HEAD: Normocephalic/atraumatic. EYES: Normal reaction of pupils, equal size. Conjunctiva pink, sclera white. NOSE: Clear with pink turbinates. THROAT: No erythema or exudates. NECK: No masses, no JVD, no thyroid enlargement, no adenopathy. CHEST: No chest wall deformity. Symmetrical expansion. LUNGS: Equal air entry with scattered crackles CVS: Regular rate and rhythm, normal S1 and S2, no gallops, no murmurs, no rubs ABDOMEN: Soft, nontender. No hepatosplenomegaly, normal bowel sounds, no guarding or rigidity. EXTREMITIES: No clubbing, no edema, no cyanosis, 2+ pulses and upper and lower extremities. MUSCULOSKELETAL: Muscle strength and tone normal. SPINE: No scoliosis or deformity SKIN: No rashes CENTRAL NERVOUS SYSTEM: Alert and oriented -3. No focal deficits, tone is normal in all 4 extremities. PSYCHIATRIC: Alert and oriented -3. Appropriate affect. Intact judgment and insight. - Labs CBC & Chem 7: 05/01/22 07:45 05/01/22 07:45 Labs: Abnormal Lab Results - Last 24 Hours (Table) 04/30/22 04/30/22 04/30/22 Range/Units 16:18 16:44 20:19 RBC (4.30-5.90) m/uL Hgb (13.0-17.5) gm/dL Hct (39.0-53.0) % RDW (11.5-15.5) % Plt Count (150-450) k/uL Lymphocytes # (1.0-4.8) k/uL Sodium (137-145) mmol/L Potassium 3.3 L (3.5-5.1) mmol/L Creatinine (0.66-1.25) mg/dL POC Glucose (mg/dL) 224 H 136 H (70-110) mg/dL ALT (4-49) U/L Total Protein (6.3-8.2) g/dL Albumin (3.5-5.0) g/dL 04/30/22 05/01/22 05/01/22 Range/Units 23:50 07:45 07:45 RBC 2.73 L (4.30-5.90) m/uL Hgb 9.2 L (13.0-17.5) gm/dL Hct 27.1 L (39.0-53.0) % RDW 24.3 H (11.5-15.5) % Plt Count 24 L (150-450) k/uL Lymphocytes # 0.7 L (1.0-4.8) k/uL Sodium 132 L (137-145) mmol/L Potassium 3.4 L (3.5-5.1) mmol/L Creatinine 0.55 L (0.66-1.25) mg/dL POC Glucose (mg/dL) (70-110) mg/dL ALT 72 H (4-49) U/L Total Protein 5.3 L (6.3-8.2) g/dL Albumin 2.6 L (3.5-5.0) g/dL Microbiology - Last 24 Hours (Table) 04/25/22 12:08 Blood Culture - Preliminary Blood No Growth after 120 hours 04/25/22 11:51 Blood Culture - Preliminary Blood No Growth after 120 hours Assessment and Plan Plan: Assessment: #1. Metastatic stage IV lung cancer, post craniotomy and resection of a [employer] tumor followed by radiation therapy, patient has completed chemotherapy, patient is currently on T2 to/immunotherapy #2. Left upper lobe/suprahilar opacity, likely related of previously known lung cancer, doubt pneumonia, patient remains covered with empiric and advised the form of Zosyn #3. Bilateral interstitial and alveolar infiltrates involving the lung bases in the left suprahilar area, rule out radiation pneumonitis or interstitial lung disease related to immunotherapy #4. Esophageal cancer post radiation therapy #5. Acute right shoulder pain with marked limitation of range of motion, no evidence of fracture or dislocation, right upper extremity Doppler was negative for DVT, and computed tomography scan of the shoulder shows no evidence of any fractures or dislocation #6. Anemia/thrombocytopenia #7. SVT, recovered, patient is in sinus rhythm #8. Troponin leak related to the above #9. COPD with bilateral emphysematous changes #10. Acid reflux #11. Hypertension #12. Osteoarthritis #13. Previous history of seizures Plan: Clinical patient continues to improve Patient has completed a 5 day course of Zosyn No definite sign of pneumonia, blood cultures have been negative Clinically patient has improved We may stop the Zosyn Continue with prednisone, breathing treatments Stable for discharge home from pulmonary perspective Outpatient follow-up with Dr. Sargent in the office if he chooses He will definitely have to follow-up with his medical oncologist from the [facility] I have personally seen and examined the patient, performed the documentation and the assessment and plan as written. Number of minutes spent on the visit: [10] Time with Patient: Less than 30
--- NOTE | 2022-05-01 14:19 | P.PN ---
Subjective The patient is a 61-year-old male with a known history of metastatic non-small cell lung cancer status post radiation and chemotherapy, history of esophageal cancer who presented with right shoulder discomfort. He had an episode of SVT but subsequently converted back to sinus mechanism. He continues to be in sinus mechanism. He had episodes of sinus bradycardia yesterday and overnight with HR 40s-50s, HR low around 43bpm, mostly happening overnight while sleeping. He has dyspnea and has been diagnosed with pneumonia and started on antibiotics. His echocardiogram showed a preserved systolic function with no significant valvular disease. He has no PND, orthopnea or significant peripheral edema. He denies any palpitation or chest discomfort. No further episode of SVT. Hemodynamically he is stable. He denies any nausea or vomiting. Possible discharge home today. PHYSICAL EXAMINATION: Vitals reviewed LUNGS: Few scattered crackles, catheter noted on the right side HEART: Regular rate and rhythm, S1, S2. No S3. No systolic murmur ABDOMEN: Soft, nontender, no organomegaly, PEG tube in place EXTREMETIES: No edema IMPRESSION: Right shoulder discomfort, noncardiac Stage IV metastatic lung cancer Episode of SVT, resolved with mild elevation of troponin Bicytopenia, post chemotherapy and immunotherapy Possible pneumonia History of esophageal cancer, post radiation PLAN: Continue beta jd metoprolol tartrate 12.5mg BID Recommend event monitor as outpatient to assess for arrhythmia, patient refusing event monitor here and follow up with cardiology in the area. Spoke to his and patient at bedside, they get most of their care at [facility] in [place] and would like to follow up there and have evaluation by cardiology in [place]. Event monitor cancelled. We will follow the patient as needed. Please reconsult if needed. Nurse practitioner note has been reviewed by physician. Signing provider agrees with the documented findings, assessment, and plan of care. Objective - Vital Signs Vital signs: Vital Signs Temp 97.5 F L 05/01/22 11:17 Pulse 50 L 05/01/22 11:17 Resp 16 05/01/22 11:17 BP 156/81 05/01/22 11:32 Pulse Ox 96 05/01/22 11:17 FiO2 Intake & Output 04/30/22 05/01/22 05/01/22 18:59 06:59 18:59 Intake Total 810 560 Output Total 1250 700 800 Balance -440 -700 -240 Weight 96.162 kg Intake: IV 50 Invasive Line 2 10 Invasive Line 3 40 Oral 760 560 Output: Urine 1250 700 800 Other: Voiding Method Toilet Toilet Toilet Urinal Urinal Urinal # Voids 2 - Labs CBC & Chem 7: 05/01/22 07:45 05/01/22 07:45 Labs: Abnormal Lab Results - Last 24 Hours (Table) 04/30/22 04/30/22 04/30/22 Range/Units 16:18 16:44 20:19 RBC (4.30-5.90) m/uL Hgb (13.0-17.5) gm/dL Hct (39.0-53.0) % RDW (11.5-15.5) % Plt Count (150-450) k/uL Lymphocytes # (1.0-4.8) k/uL Sodium (137-145) mmol/L Potassium 3.3 L (3.5-5.1) mmol/L Creatinine (0.66-1.25) mg/dL POC Glucose (mg/dL) 224 H 136 H (70-110) mg/dL ALT (4-49) U/L Total Protein (6.3-8.2) g/dL Albumin (3.5-5.0) g/dL 04/30/22 05/01/22 05/01/22 Range/Units 23:50 07:45 07:45 RBC 2.73 L (4.30-5.90) m/uL Hgb 9.2 L (13.0-17.5) gm/dL Hct 27.1 L (39.0-53.0) % RDW 24.3 H (11.5-15.5) % Plt Count 24 L (150-450) k/uL Lymphocytes # 0.7 L (1.0-4.8) k/uL Sodium 132 L (137-145) mmol/L Potassium 3.4 L (3.5-5.1) mmol/L Creatinine 0.55 L (0.66-1.25) mg/dL POC Glucose (mg/dL) (70-110) mg/dL ALT 72 H (4-49) U/L Total Protein 5.3 L (6.3-8.2) g/dL Albumin 2.6 L (3.5-5.0) g/dL Microbiology - Last 24 Hours (Table) 04/25/22 11:51 Blood Culture - Final Blood No Growth after 144 hours 04/25/22 12:08 Blood Culture - Preliminary Blood No Growth after 120 hours
== END 2022-05-01 16:40 | disposition home health service (06) | DRG 280 ==
LOC: EC 13:59 → 4SSUR 17:10 → 2SICU 04-25 11:05 → 3SCARD 04-25 22:25
PROVIDERS: ADMIT Hospitalist; ATTEND Hospitalist
PROC: 30233N1 Transfusion of Nonautologous Red Blood Cells into Peripheral Vein, Percutaneous Approach (ICD-10-PCS; principal; 2022-04-25)
DX: I47.1 Supraventricular tachycardia (principal); D61.810 Antineoplastic chemotherapy induced pancytopenia; I21.A1 Myocardial infarction type 2; J96.01 Acute respiratory failure with hypoxia; E87.2 Acidosis; C34.12 Malignant neoplasm of upper lobe, left bronchus or lung; C79.31 Secondary malignant neoplasm of brain; J70.0 Acute pulmonary manifestations due to radiation; C15.5 Malignant neoplasm of lower third of esophagus; E83.42 Hypomagnesemia; T45.1X5A Adverse effect of antineoplastic and immunosuppressive drugs, initial encounter; I10 Essential (primary) hypertension; G40.909 Epilepsy, unspecified, not intractable, without status epilepticus; Y84.2 Radiological procedure and radiotherapy as the cause of abnormal reaction of the patient, or of later complication, without mention of misadventure at the time of the procedure; J43.9 Emphysema, unspecified; Z96.643 Presence of artificial hip joint, bilateral; Z96.653 Presence of artificial knee joint, bilateral; K21.00 Gastro-esophageal reflux disease with esophagitis, without bleeding; M19.011 Primary osteoarthritis, right shoulder; M77.9 Enthesopathy, unspecified; Z79.82 Long term (current) use of aspirin; Z79.899 Other long term (current) drug therapy; Z87.891 Personal history of nicotine dependence; Z92.3 Personal history of irradiation; Z93.1 Gastrostomy status
CPT/HCPCS: 36415; 70450; 71045; 71275; 80048; 80053; 80076; 80202; 81003; 82607; 82746; 82784; 83010; 83540; 83550; 83615; 83735; 83880; 83930; 83935; 84132; 84145; 84300; 84484; 84550; 85025; 85027; 85045; 85379; 85384; 85610; 85730; 86850; 86900; 86901; 86920; 87040; 87449; 93005; 93306; 94760; 96361; 96374; 96376; 99285

== ENCOUNTER → 2022-06-09 | Outpatient (CLI) | payer MEDICARE ==
[2022-06-09 12:29] LABS: African American GFR (CKD) >90 (>60 ml/min/1.73 sqM); Blood Urea Nitrogen 7 mg/dL (9-20); Non-African American GFR(CKD) >90 (>60 ml/min/1.73 sqM)
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
== END | disposition home or self-care (01) ==
LOC: RADCTMAIN 11:06
PROVIDERS: ATTEND Radiology Radiation Oncology
DX: C79.51 Secondary malignant neoplasm of bone (principal); C79.31 Secondary malignant neoplasm of brain; C15.5 Malignant neoplasm of lower third of esophagus; C34.12 Malignant neoplasm of upper lobe, left bronchus or lung; G93.89 Other specified disorders of brain
CPT/HCPCS: 82565; 84520; 70460; 36415; Q9967

== ENCOUNTER 2024-06-09 21:43 | Observation (INO) | payer MEDICARE ==
[~2024-06-09 21:43] MED LIST changes: +ASPIRIN 81 MG ONE; -HYDROmorphone 0.5 MG/0.5 ML SYRINGE IVP PRN; -LIDOCAINE 1% (10MG/ML) FOR IV START INTRADERMA PRN; -MIDAZOLAM 2 MG/2 ML VIAL IV PRN; +MORPHINE SULFATE 4 MG/ML SYRINGE ONE; +NITROGLYCERIN SL TABS 0.4 MG TAB SUBLINGUAL ONE; +ONDANSETRON 4 MG/2 ML VIAL ONE; -ROPIVACAINE 246.25 MG, EPINEPHrine 0.5 MG, KETOROLAC 30 MG, cloNIDine HCL/PF 80 MCG, WA... MISCELLANE ONE; -TRANEXAMIC ACID 1,000 MG in SODIUM CHLORIDE 0.9% 100 ML IVPB ONE
[2024-06-10] MEDS ORDERED: MORPHINE SULFATE 4 MG/ML SYRINGE ONE ×2 (00:12→11:21)
[2024-06-10] MEDS ORDERED: APIXABAN 5 MG TAB ONE ×2 (08:53→20:35)
[2024-06-10] MEDS ORDERED: METOPROLOL TARTRATE 12.5 MG TAB ONE ×2 (08:54→20:37)
[2024-06-10] MEDS ORDERED: SERTRALINE 50 MG TAB ONE (08:55)
[2024-06-10] MEDS ORDERED: FAMOTIDINE 20 MG TAB ONE (08:56)
[2024-06-10] MEDS ORDERED: predniSONE 10 MG TAB ONE (08:56)
[2024-06-10] MEDS ORDERED: GABAPENTIN 300 MG CAP ONE ×2 (08:57→20:36)
[2024-06-10] MEDS ORDERED: HYDROcodone/APAP 7.5-325MG 1 EACH TAB ONE ×2 (08:58→20:36)
[2024-06-10] MEDS ORDERED: ONDANSETRON 4 MG/2 ML VIAL ONE (12:45)
[2024-06-11] MEDS ORDERED: PANTOPRAZOLE 40 MG TABLET PO ONE (06:18)
[2024-06-11] MEDS ORDERED: methIMAzole 5 MG TAB ONE (09:00)
[2024-06-11] MEDS ORDERED: CYANOCOBALAMIN 500 MCG TAB ONE (09:15)
[2024-06-11] MEDS ORDERED: MAGNESIUM OXIDE 400 MG TAB ONE (09:15)
[2024-06-11] MEDS ORDERED: MULTIVITAMINS, THERA 1 EACH TAB ONE (09:16)
[2024-06-11] MEDS ORDERED: SERTRALINE 50 MG TAB ONE (09:16)
[2024-06-11] MEDS ORDERED: APIXABAN 5 MG TAB ONE (09:16)
[2024-06-11] MEDS ORDERED: predniSONE 10 MG TAB ONE (09:16)
[2024-06-11] MEDS ORDERED: METOPROLOL TARTRATE 12.5 MG TAB ONE (09:16)
[2024-06-11] MEDS ORDERED: CHOLECALCIFEROL 25 MCG (1000 IU) TABLET ONE (09:16)
[2024-06-11] MEDS ORDERED: FAMOTIDINE 20 MG TAB ONE (09:17)
[2024-06-11] MEDS ORDERED: GABAPENTIN 300 MG CAP ONE ×2 (09:18→15:41)
[2024-06-11] MEDS ORDERED: HYDROcodone/APAP 7.5-325MG 1 EACH TAB ONE ×2 (09:52→15:54)
[2024-06-11] MEDS ORDERED: MORPHINE SULFATE 2 MG/ML SYRINGE ONE (14:21)
--- NOTE | 2024-07-01 14:19 | CT ---
Patient Phi Mendoza ID [id number] Order # [id number] CHEST EXAMINATION TYPE: CT angio chest DATE OF EXAM: 06/09/2024 INDICATION: Chest pain and history of lung cancer CT DLP: 611.4 mGycm, Automated exposure control for dose reduction was used. CONTRAST: Patient injected with 100 mL of Isovue 370. COMPARISON: No comparison available on downtime PACS. TECHNIQUE: CT of the chest is performed on a spiral scan at 2 mm thick sections. Study is performed with intravenous contrast timed for evaluation for pulmonary embolism. This will limit additional po rtions of the evaluation. 3-D MIP images reconstructed by the technologist are reviewed on the compu ter in the coronal and sagittal planes. FINDINGS: No persistent filling defects are evident to suggest an acute pulmonary embolism. No mediastinal or hilar adenopathy enlarged by CT criteria is evident. The ascending aorta diameter at the level of the main pulmonary artery is 2.9 cm. The main pulmonary artery diameter at the bifurcation is 2.5 cm. There is a 2.5 cm mass along the medial left apex. This extends towards the left suprahilar region. C omparison images are unavailable interval change cannot be evaluated. Extensive emphysematous changes are present. Large blebs and bulla are present especially at the lung bases. Limited CT sections were through the upper abdomen. Upper abdomen appears unremarkable. IMPRESSION: 1. Medial left apical mass with extension towards the left hilum can be compatible with the patient's reported lung cancer. Comparison however cannot be performed at this time and follow-up would be rec ommended. 2. No acute pulmonary embolism.
== END 2024-06-11 17:15 | disposition home or self-care (01) ==
LOC: INTOOBSV 21:43 → 6NMEDSUR 21:43 → UNDODISIN 06-11 17:15
PROVIDERS: ADMIT Internal Medicine; ATTEND Internal Medicine
DX: C34.92 Malignant neoplasm of unspecified part of left bronchus or lung (principal); R07.89 Other chest pain; G89.3 Neoplasm related pain (acute) (chronic); C79.31 Secondary malignant neoplasm of brain; C15.9 Malignant neoplasm of esophagus, unspecified; D69.6 Thrombocytopenia, unspecified; I10 Essential (primary) hypertension; Z79.01 Long term (current) use of anticoagulants; Z79.899 Other long term (current) drug therapy; Z87.891 Personal history of nicotine dependence
CPT/HCPCS: 71275; 96374; 96375; 96376; 99285

== ENCOUNTER → 2024-08-08 | Outpatient (CLI) | payer MEDICARE | END | disposition home or self-care (01) | LOC: LABWHC1 12:32 | DX: C15.9 Malignant neoplasm of esophagus, unspecified (principal) | CPT/HCPCS: 36415; 84439 ==

== ENCOUNTER → 2024-08-09 | Outpatient (CLI) | payer MEDICARE ==
[2024-08-09 15:23] VITALS: BP 113/76; PULSE 96; RESP 16; TEMP 98.1
[2024-08-09 15:36] LABS: Anisocytosis Moderate; HCT 25.5 % (39.0-53.0); HGB 8.3 gm/dL (13.0-17.5); Hypochromasia Slight; MCH 36.5 pg (25.0-35.0); MCHC 32.6 g/dL (31.0-37.0); Macrocytosis Marked; Mean Platelet Volume 10.6; Platelet Count 124 k/uL (150-450); Poikilocytosis Slight; RBC 2.28 m/uL (4.30-5.90); RDW 23.5 % (11.5-15.5)
[2024-08-09 15:41] LABS: ALT 18 U/L (4-49); AST 18 U/L (17-59); African American GFR (CKD) >90 (>60 ml/min/1.73 sqM); Albumin 3.9 g/dL (3.5-5.0); Alkaline Phosphatase 108 U/L (38-126); Anion Gap 9 mmol/L; Blood Urea Nitrogen 9 mg/dL (9-20); Calcium 9.1 mg/dL (8.4-10.2); Carbon Dioxide 23 mmol/L (22-30); Chloride 102 mmol/L (98-107); Glucose 98 mg/dL (74-99); Magnesium 1.5 mg/dL (1.6-2.3); Non-African American GFR(CKD) >90 (>60 ml/min/1.73 sqM); Potassium 3.2 mmol/L (3.5-5.1); Sodium 134 mmol/L (137-145); Total Bilirubin 0.6 mg/dL (0.2-1.3); Total Protein 6.2 g/dL (6.3-8.2)
[2024-08-09 15:57] LABS: T4, Free (Free Thyroxine) 1.09 ng/dL (0.78-2.19)
[2024-08-09 16:04] LABS: Band Neutrophils % 4 %; Eosinophils # (M) 0.05 k/uL (0-0.7); Lymphocytes # (M) 0.91 k/uL (1.0-4.8); Monocytes # (M) 0.12 k/uL (0-1.0); Neutrophils % (M) 53 %; Nucleated Red Blood Cells 45 /100 WBC (0-0); Total Cells Counted 200; WBC 2.4 k/uL (3.8-10.6)
[2024-08-09 16:05] LABS: Large Platelets Present
== END ==
LOC: PROCWHC3 14:56
CPT/HCPCS: 36591; 80053; 83735; 84439; 84443; 84481; 85025

== ENCOUNTER → 2024-08-17 | Outpatient (CLI) | payer MEDICARE ==
[2024-08-17 13:58] VITALS: BP 100/62; PULSE 80; RESP 16; TEMP 97.7
== END ==
LOC: PROCWHC3 13:42
DX: C15.9 Malignant neoplasm of esophagus, unspecified (principal)
CPT/HCPCS: 36591; 86850; 86900; 86901; 86920